=== PATIENT | female | born 1950 | race Caucasian/White ===

== ENCOUNTER 2016-12-22 18:30 | Observation (INO) ==
[2016-12-22] MEDS ORDERED: IOPAMIDOL 100 ML BOTTLE IJ ONE (18:31)
[2016-12-22] MEDS ORDERED: LABETALOL 5 MG/ML ML IV ONE (18:53)
[2016-12-22] MEDS ORDERED: LABETALOL HCL 20 MG/4 ML SYRINGE IV ONE (19:01)
--- NOTE | 2016-12-22 19:27 | Cat Scan Report ---
CLINICAL INFORMATION: There headache COMPARISON: None. TECHNIQUE: 2.5 mm helical slices were obtained in the skull base to vertex. Following reconstruction, axial reformatted images were reviewed at bone and parenchymal windows. FINDINGS: The ventricles, sulci, fissures, and cisterns are normal in size and configuration. No extra-axial fluid collections are identified. A small focus of dystrophic calcification is noted in the right frontal subcortical white matter. The remaining cerebrum, brainstem and cerebellum are unremarkable. There is no evidence of hemorrhage, mass effect, or edema. Bone windows show no osseous abnormality. IMPRESSION: No significant abnormality. No evidence of subarachnoid hemorrhage. Interpreted and Authenticated by: Spencer Roland 12/22/16
[2016-12-22 19:37] LABS: Basophils # (Auto) 0 K/mcL (0.0-0.3); Basophils % (Auto) 0.5 % (0.0-2.0); Eosinophils # (Auto) 0.1 K/mcL (0.0-0.7); Eosinophils % (Auto) 2.2 % (0.0-7.0); Granulocytes % (Auto) 61.7 % (38.0-78.0); Lymphocytes # (Auto) 1.6 K/mcL (1.5-4.8); Lymphocytes % (Auto) 27.5 % (15.5-49.0); Mean Cell Volume 91.8 fL (80.0-100.0); Mean Corpuscular HGB Conc 33.5 g/dL (31.0-36.0); Mean Corpuscular Hemoglobin 30.7 pg (26.0-34.0); Monocytes # (Auto) 0.5 K/mcL (0.1-0.9); Monocytes % (Auto) 8.1 % (1.0-9.0); Platelet Count 253 K/mcL (140-440); RBC 3.77 M/mcL (4.00-5.20); Red Cell Distribution Width 13.3 % (11.5-14.5)
[2016-12-22 19:50] LABS: ALT/SGPT 33 U/l (0-40); Albumin/Globulin Ratio 1.7 (1.0-2.3); Alkaline Phosphatase 112 U/L (39-117); Blood Urea Nitrogen 18 mg/dl (8-23); C-Reactive Protein 0.5 mg/dl (0.0-0.8)
[2016-12-22] MEDS ORDERED: IBUPROFEN 600 MG TABLET PO ONE (19:56)
[2016-12-22] MEDS ORDERED: DIAZEPAM 10 MG/2 ML SYRINGE IV ONE (21:46)
--- NOTE | 2016-12-22 22:23 | Emergency Department Note ---
Headache HPI - General Chief Complaint: Headache Stated Complaint: Migraine Time Seen by Provider: 12/22/16 18:37 Mode of arrival: wheelchair Limitations: no limitations - History of Present Illness HPI Narrative: The patient is a 66-year-old female who presents to the ER with complaint of "the worst headache of my life." She states that she really hasn't been feeling well for the past week or so got worse today. She tried to eat something and it didn't sit well so she went to lie down this afternoon and at 4 :45 PM she felt a sudden onset of right occipital pain which prompted her to come in. She reports that the pain is constant, sharp, with increased pressure. She endorse dizziness and rates the pain as 8 out of 10 on the pain scale. Endorse nausea but did not vomit. The patient does have a history of migraine headaches and stated that it was much different than those. Endorse light sensitivity. States that she has been dealing with sinus pressure and pain. No recent falls although one year ago she did fall in the bathroom on the tile on the same spot in the back of her right skull. She had no issues with pain at that time. The patient is a type II diabetic and controlled on metformin and glyburide. She states that her sugars have been higher than she likes them recently. Also has hypertension and is on lisinopril and hydrochlorothiazide. Has high cholesterol treated with Lipitor and is on Prilosec for reflux. Has never had a stroke or a TIA. Complaint: headache Onset (ago): hour(s) (2) Onset description: sudden, other (worst headache of my life") Location: Occipital Severity: severe Severity scale (1-10): 8 Quality: sharp Improves with: nothing, other Worsens with: exertion, light, noise Context: occurred at rest Associated symptoms: Reports: neck stiffness, photophobia, sensitivity to sound , other - Related Data Home Medications Medication Instructions Recorded Confirmed albuterol sulfate HFA 90 2 puff INHALATION ONCE PRN g 04/30/16 12/22/16 mcg/actuation aerosol inhaler Previous Rx's Medication Instructions Recorded glimepiride 4 mg tablet 4 mg PO QAM #90 tab 08/01/16 hydrochlorothiazide 25 mg tablet 25 mg PO QDAY #90 tab 08/01/16 lisinopril 10 mg tablet 10 mg PO QDAY #90 tab 08/01/16 atorvastatin 10 mg tablet See Label Instructions PO QDAY #30 11/20/16 tab metformin 1,000 mg tablet 1,000 mg PO BID #60 tab 11/20/16 omeprazole 20 mg capsule,delayed 20 mg PO QDAY #30 cap 11/20/16 release Allergies Allergy/AdvReac Type Severity Reaction Status Date / Time Hydromorphone Allergy Severe " I quit Verified 12/22/16 18:34 breatghing" perfume Allergy Intermediate asthma Verified 12/22/16 18:34 attack morphine Allergy Mild SOB Verified 12/22/16 18:34 amitriptyline AdvReac Intermediate aggitated Verified 12/22/16 18:34 cephalexin AdvReac Mild Upset ABD Verified 12/22/16 18:34 codeine AdvReac Mild Upset ABD Verified 12/22/16 18:34 Erythromycin Base AdvReac Mild Upset ABD Verified 12/22/16 18:34 latex AdvReac Mild Redness of Verified 12/22/16 18:34 Skin Oxycodone AdvReac Mild "Upset ABD" Verified 12/22/16 18:34 penicillin V [From Pen-Vee K] AdvReac Mild "Feels Verified 12/22/16 18:34 like I am drunk" duloxetine [From Cymbalta] AdvReac Stomach Verified 12/22/16 18:34 ache, nausea, headache, vomiting hydrocodone AdvReac Vomiting/mi Verified 12/22/16 18:34 graines artificial sweetners AdvReac Intermediate Headahe Uncoded 11/20/16 15:41 synthetic codine AdvReac Hallucinating, Uncoded 11/20/16 15:41 pain intensifies vicoden AdvReac vomiting Uncoded 11/20/16 15:41 and headaches Review of Systems All systems ED: reviewed and negative except as stated. Headache PMH - Past Medical History Attestation: Yes: The following information was validated with the patient. Medical history: Reports: asthma, diabetes, hyperlipidemia, hypertension, other (obesity, chronic sinus headaches.) - Social History Alcohol use: Reports: None Drug use: Reports: none Physical Exam - General Limitations: no limitations General appearance: alert, other (wearing large sunglasses, appear to be in pain ) - Head Head exam: atraumatic - Eye Eye exam: Present: PERRL, EOMI - ENT ENT exam: normal exam - Neck Neck exam: Present: normal inspection - Chest Chest inspection: Present: normal inspection - Respiratory Respiratory exam: Present: normal lung sounds bilaterally - Cardiovascular Cardiovascular exam: Present: regular rate, normal rhythm, systolic murmur (3/6 ) - Abdominal Exam Abdominal exam: Present: soft, normal bowel sounds - Extremities Exam Extremities exam: Present: other (significant bilateral lower extremity edema - described as "normal" by patient) - Back Exam Back exam: Present: normal inspection - Neurological Exam Neurological exam: Present: alert, oriented X3, CN II-XII intact, other (right facial numbness, right arm and leg numbness, full motor strength 5/5, finger to nose test normal) - Psychiatric Psychiatric exam: Present: normal affect, normal mood - Skin Skin exam: Present: warm, dry Course Course Narrative: Patient initially presented with symptoms of the "worst headache of my life." CT head was done and was negative for an intracranial process. She initially also presented with systolic blood pressures of 196. She was given a dose of labetalol [address] Hanna blood pressures quickly down to systolics in the low 100s. The patient felt nauseous and some shortness of breath with this. IV fluids were given which helped improve her pressures up into the 120s and she felt better. Of note then the patient started describing symptoms of right facial numbness as well as right arm and leg numbness. Motor strength was always intact but she lost sensory discrimination. This was not initially present on arrival. - Reevaluation(s) Reevaluation #1: We did try to order an MRI of her head but unfortunately due to her size she would not fit in the MRI machine at [facility] so a CT angiogram was performed here. That returned negative. Blood pressures were very labile but starting to trend down more towards systolics of 140s and 150s which is at her baseline. However her symptoms of right facial numbness persisted even as her arm and leg numbness resolved. Due to these irregular symptoms the hospitalist with consultation and she graciously agreed to admit the patient for further observation. Vital Signs Temperature 98.0 F 12/22/16 18:30 Pulse Rate 108 H 12/22/16 18:30 Respiratory Rate 16 12/22/16 18:30 Blood Pressure 196/102 12/22/16 18:30 Pulse Oximetry (%) 98 12/22/16 18:30 Temperature 98.0 F 12/22/16 18:30 Pulse Rate 74 12/22/16 22:30 Respiratory Rate 14 12/22/16 22:30 Blood Pressure 162/66 12/22/16 23:42 Pulse Oximetry (%) 95 12/22/16 23:42 Headache - MDM Narrative Medical decision making narrative: Differential includes atypical migraine, TIA, evolving stroke, hypertensive urgency causing nondescript symptoms. Her blood work was largely normal except for her elevated glucose at 280. We'll observe for signs of worsening neuro function. - Lab Data Lab results reviewed: Yes I reviewed the patient's lab results. Result diagrams: 12/22/16 19:00 12/22/16 19:00 Lab Results 12/22/16 12/22/16 12/22/16 Range/Units 19:00 19:00 23:29 WBC 5.9 (4.5-11.0) K/mcL RBC 3.77 L (4.00-5.20) M/mcL Hgb 11.6 L (12.0-15.0) g/dL Hct 34.6 L (36.0-48.0) % MCV 91.8 (80.0-100.0) fL MCH 30.7 (26.0-34.0) pg MCHC 33.5 (31.0-36.0) g/dL RDW 13.3 (11.5-14.5) % Plt Count 253 (140-440) K/mcL MPV 8.7 (7.4-10.4) fL Gran % 61.7 (38.0-78.0) % Lymph % (Auto) 27.5 (15.5-49.0) % [place] % (Auto) 8.1 (1.0-9.0) % Eos % (Auto) 2.2 (0.0-7.0) % Baso % (Auto) 0.5 (0.0-2.0) % Gran # 3.6 (1.8-8.0) K/mcL Lymph # 1.6 (1.5-4.8) K/mcL [place] # 0.5 (0.1-0.9) K/mcL Eos # 0.1 (0.0-0.7) K/mcL Baso # 0 (0.0-0.3) K/mcL Sodium 137 (133-145) mmol/L Potassium 4.2 (3.3-5.1) mmol/L Chloride 99 (96-108) mmol/L Carbon Dioxide 24 (22-30) mmol/L Anion Gap 14.0 (8-16) BUN 18 (8-23) mg/dl Creatinine 1.2 H (0.6-1.1) mg/dl GFR Calculation 47 Glucose 280 H (70-105) mg/dL Calcium 9.2 (8.6-10.4) mg/dl Total Bilirubin 0.3 (0.0-1.0) mg/dL AST 20 (0-37) U/l ALT 33 (0-40) U/l Alkaline Phosphatase 112 (39-117) U/L C-Reactive Protein 0.5 (0.0-0.8) mg/dl Total Protein 6.3 (5.9-8.4) gm/dL Albumin 4.0 (3.2-5.2) gm/dL Globulin 2.3 (2.2-3.7) gm/dL Albumin/Globulin Ratio 1.7 (1.0-2.3) Urine Color Yellow Urine Appearance Hazy Urine pH 5.0 (5.0-9.0) Ur Specific [place] 1.017 (1.000-1.035) Urine Protein Neg (NEG) mg/dL Urine Glucose (UA) 150 A (NEG) mg/dL Urine Ketones Neg (NEG) mg/dL Urine Occult Blood Neg (<0.03) mg/dL Urine Nitrate Pos A (NEG) Urine Bilirubin Neg (NEG) mg/dL Urine Urobilinogen Neg (NEG) mg/dL Ur Leukocyte Esterase Neg (NEG) /uL Urine RBC 0 (0-1) /hpf Urine WBC 4 (0-4) /hpf Ur Squamous Epith Cells 8 H (0-4) /hpf Ur Transition Epith Cell < 1 (0-2) /hpf Urine Bacteria Few A (0) /hpf Hyaline Casts 16 H (0-2) /lpf Urine Mucus Few (0) /hpf Ur Culture Indicated? No - Radiology Data Radiology results reviewed: Yes I reviewed the patient's radiology results. CT head without contrast negative CT angiogram head negative Disposition Clinical Impression: Headache, Hypertensive urgency Disposition: Xfer As Outpt/Obs ([facility]) Referrals: Melody Galeas DO [Primary Care Provider] -
[2016-12-22] MEDS ORDERED: HYDROCHLOROTHIAZIDE 25 MG TABLET PO ONE (22:32)
[2016-12-22] MEDS ORDERED: LISINOPRIL 10 MG TABLET PO ONE (22:32)
[2016-12-22] MEDS ORDERED: diphenhydrAMINE 50 MG/ML VIAL IV ONE (22:54)
[2016-12-22] MEDS ORDERED: diphenhydrAMINE 50 MG/ML VIAL ONE (22:56)
[2016-12-23 00:09] LABS: Appearance,Urine HAZY; Bacteria,Urine FEW /hpf (0); Bilirubin,Urine NEG (NEG); Color,Urine YELLOW; Glucose,Urine (UA) 150 mg/dL (NEG); Leukocyte Esterase,Urine NEG /uL (NEG); Mucus,Urine FEW /hpf (0); Nitrate,Urine POS (NEG); Protein,Urine NEG (NEG); Specific Gravity,Urine 1.017 (1.000-1.035); Urine Blood NEG mg/dL (<0.03); Urine Hyaline Cast 16 /lpf (0-2); Urine RBC 0 /hpf (0-1); Urine Squamous Epithelial Cell 8 /hpf (0-4); Urine Transitional Epi Cells < 1 /hpf (0-2); Urine WBC 4 /hpf (0-4); Urobilinogen,Urine NEG (NEG)
[2016-12-23] MEDS ORDERED: ONDANSETRON 4 MG/2 ML VIAL IV PRN (01:41)
[2016-12-23] MEDS ORDERED: MAGNESIUM HYDROXIDE 30 ML ORAL.SUSP PO PRN (01:41)
[2016-12-23] MEDS ORDERED: ACETAMINOPHEN 325 MG TABLET PO PRN (01:41)
[2016-12-23] MEDS ORDERED: ALBUTEROL SULFATE 2.5 MG/3 ML NEBULIZER NEB PRN (01:41)
[2016-12-23] MEDS ORDERED: DOCUSATE SODIUM 100 MG CAPSULE PO PRN (01:41)
[2016-12-23] MEDS ORDERED: DEXTROSE 50% 50 ML VIAL IV PRN (01:41)
--- NOTE | 2016-12-23 03:01 | Internal Med History&Physical ---
Medical - H&P: HPI Patient information: Note initiated : 12/23/16 at 1:55 am Service Date, if different from initiated Date: [] Patient: Shawanda Healy 66 y/o F admitted on 12/23/16 for Migraine. Chief Complaint: [] History of present illness: Ms. Healy is a 66 year old female the presents to the emergency roomthis evening complaining of "the worst headache of my life". The patient reports that she has been feeling ill for about a week with nausea and diarrhea and dry heavesas well as a mild frontal headache. She has been taking Ivette which seemed to helpwith the headache but not the GI symptoms. She had not been eating much, but yesterday did eat some [place] food. This evening right around 4:45 PM she developed a severe rather sharp pain in her right posterior/ occipital area. She describes this as a sharpheadache pain. It was associated with dizziness and nausea. She has been having some chills. She notes her vision felt a little blurry today. She presented to the emergency room with these symptoms and was found to have very elevated blood pressures in the 196/102 range. She was given labetalol in the emergency room, and ultimately underwent a dry head CT, followed by CT angiogram of the head and neck. These studies were essentially normal. Otherwise, she did have mild photosensitivity today. She does have a past history of migraines, but they've always included a throbbing pain in her right yazdanism area.her vision symptoms cleared once she got to the ER. She denies any ear symptoms or sore throat or cough. She denies neck stiffness swollen glands , chest pain or palpitations, shortness of breath or wheezing abdominal pain or vomiting. I believe her diarrhea has resolved and she does not have dysuria. She does have a history of heavy snoring, but says her says she has never stopped breathing at night. She has declined testing for sleep apnea. She denies daytime sleepiness. She has a long-standing history of diabetes and obesity. She has been working much harder on her diet lately, and has lost about 20 pounds. She did recently started on atorvastatin for hyperlipidemia. She does not generally take aspirin at home, other than an occasional Excedrin Migraine pill. Medical History Zenker's diverticulum, status post repairFebruary 2016 Type 2 diabetes Mild memory issues 1 year heavy snoring Lymphedema of both lower extremities (Chronic) Neuropathy (Chronic) Psoriasis (Chronic) from IBS (irritable bowel syndrome) (Chronic) 1995 Disorder of thyroid gland (Chronic) 1999 Stomach ulcer (Chronic) 1986 Joint pain (Chronic) 1989 Insomnia (Chronic) 1989 High cholesterol (Chronic) 2011 Hypertension (Chronic) 2014 Hepatitis B (Chronic) 1958 still a carrier Fibromyalgia (Chronic) 1989 Basal cell carcinoma (Chronic) 2013 under right eye Arthritis (Chronic) 1966 Anxiety (Chronic) 1986 Asthma (Chronic) Atypical chest pain (Chronic) Costalchondritis (Chronic) Surgical History Hx of excision of Zenker's diverticulum (Chronic 11/15/16) Hx of bilateral cataract extraction (Chronic) 2014 Hx of right knee surgery (Chronic) 1981 Hx of oophorectomy (Chronic) 1978 Hx of hysterectomy (Chronic) 1974 Hx of appendectomy (Chronic) 1973 History of tonsillectomy and adenoidectomy (Chronic) 1960 Hx of cholecystectomy (Chronic) Medication List omeprazole 20 mg daily acetaminophen (Tylenol) PO albuterol sulfate HFA 90 mcg/actuation (Ventolin HFA) 2 puffs Inhalation ONCE PRN gabapentin 200 mg PO PRN PRN ? glimepiride 4 mg PO QAM hydrochlorothiazide 25 mg PO QDAY lisinopril 10 mg PO QDAY metformin ER 1,000 mg (2 x 500 mg) PO BID atorvastatin 10 mgevery afternoon Excedrin Migraine, when necessary Ivette, when necessary Allergies/Adverse Reactions Hydromorphone Allergy (Severe, Verified 11/20/16 15:41) " I quit breatghing" perfume Allergy (Intermediate, Verified 11/20/16 15:41) asthma attack morphine Allergy (Mild, Verified 11/20/16 15:41) SOB amitriptyline Adverse Reaction (Intermediate, Verified 11/20/16 15:41) aggitated cephalexin Adverse Reaction (Mild, Verified 11/20/16 15:41) Upset ABD codeine Adverse Reaction (Mild, Verified 11/20/16 15:41) Upset ABD Erythromycin Base Adverse Reaction (Mild, Verified 11/20/16 15:41) Upset ABD latex Adverse Reaction (Mild, Verified 11/20/16 15:41) Redness of Skin Oxycodone Adverse Reaction (Mild, Verified 11/20/16 15:41) "Upset ABD" penicillin V [From Pen-Vee K] Adverse Reaction (Mild, Verified 11/20/16 15:41) "Feels like I am drunk" duloxetine [From Cymbalta] Adverse Reaction (Verified 11/20/16 15:41) Stomach ache, nausea, headache, vomiting hydrocodone Adverse Reaction (Verified 11/20/16 15:41) Vomiting/migraines artificial sweetners Adverse Reaction (Intermediate, Uncoded 11/20/16 15:41) Headahe synthetic codine Adverse Reaction (Uncoded 11/20/16 15:41) Hallucinating, pain intensifies vicoden Adverse Reaction (Uncoded 11/20/16 15:41) vomiting and headaches Family History Grandfather Cancer Father Cancer stomach cancer Family/Other Cancer maternal aunt-lung cancer, niece-cervical cancer Mother Cancer non-hodgkins lymphoma and brain cancer Brother Cancer Liver cancer, brother-brain cancer Diabetes mellitus, type II Grandmother Dementia Migraine Sister Migraine Daughter Migraine Social History marital status: smoking status: Former smoker alcohol intake frequency: does not drink substance use type: does not use Medical - H&P: Meds Home Medications Medication Instructions Recorded Confirmed Type albuterol sulfate HFA 90 2 puff INHALATION ONCE PRN g 04/30/16 12/22/16 History mcg/actuation aerosol inhaler glimepiride 4 mg tablet 4 mg PO QAM #90 tab 08/01/16 12/22/16 Rx hydrochlorothiazide 25 mg tablet 25 mg PO QDAY #90 tab 08/01/16 12/22/16 Rx lisinopril 10 mg tablet 10 mg PO QDAY #90 tab 08/01/16 12/22/16 Rx atorvastatin 10 mg tablet See Label Instructions PO QDAY #30 11/20/16 11/20/16 Rx tab metformin 1,000 mg tablet 1,000 mg PO BID #60 tab 11/20/16 12/22/16 Rx omeprazole 20 mg capsule,delayed 20 mg PO QDAY #30 cap 11/20/16 12/22/16 Rx release Allergies Allergy/AdvReac Type Severity Reaction Status Date / Time Hydromorphone Allergy Severe " I quit Verified 12/22/16 18:34 breatghing" perfume Allergy Intermediate asthma Verified 12/22/16 18:34 attack morphine Allergy Mild SOB Verified 12/22/16 18:34 amitriptyline AdvReac Intermediate aggitated Verified 12/22/16 18:34 cephalexin AdvReac Mild Upset ABD Verified 12/22/16 18:34 codeine AdvReac Mild Upset ABD Verified 12/22/16 18:34 Erythromycin Base AdvReac Mild Upset ABD Verified 12/22/16 18:34 latex AdvReac Mild Redness of Verified 12/22/16 18:34 Skin Oxycodone AdvReac Mild "Upset ABD" Verified 12/22/16 18:34 penicillin V [From Pen-Vee K] AdvReac Mild "Feels Verified 12/22/16 18:34 like I am drunk" duloxetine [From Cymbalta] AdvReac Stomach Verified 12/22/16 18:34 ache, nausea, headache, vomiting hydrocodone AdvReac Vomiting/mi Verified 12/22/16 18:34 graines artificial sweetners AdvReac Intermediate Headahe Uncoded 11/20/16 15:41 synthetic codine AdvReac Hallucinating, Uncoded 11/20/16 15:41 pain intensifies vicoden AdvReac vomiting Uncoded 11/20/16 15:41 and headaches Medical - H&P: Exam - Constitutional Vitals: Temp Pulse Resp BP Pulse Ox 97.7 F 78 18 159/77 97 12/23/16 01:00 12/23/16 01:00 12/23/16 01:00 12/23/16 01:00 12/23/16 01:00 Exam: on exam, she is a well-developed well-nourished, obese white female, in no acute distress. Head: Normocephalic, atraumatic. Ears: TMs and canals are clear. Eyes: PERRLA, EOMI, anicteric. Pharynx: Is clear. Teeth are in good repair. Neck: Is supple, without lymphadenopathy, JVD, thyromegaly. She does have bilateral carotid bruits, which appear to be radiation from her heart murmur. Cardiac exam: Shows regular rate and rhythm with normal S1 and S2. There is a 2 /6 systolic ejection murmur heard loudest at the right upper sternal border, and radiating into the carotids, As well as into the left apical area. Lungs: Are clear to auscultation, without rales, rhonchi, wheezes Abdomen: Is obese, but soft and nontender, with normal bowel sounds. Extremities: Show chronic lymphedema, but no pitting edema, no cyanosis, clubbing. Neurologic exam: Patient is alert and oriented 3. Cranial nerves are intact. Motor exam shows about 4+ out of 5 strength throughout. Sensory exam shows that she is intact now, to light touch throughout. Cerebellar: There is no pronator drift;[id number] exam is intact. No tremor is noted. deep tendon reflexes were somewhat difficult to obtain, but appear symmetric. Medical - H&P: Reslt - Labs CBC & Chem 7: 12/22/16 19:00 12/22/16 19:00 Labs: CT angiogram of the head and neck: Negative, per verbal report. Head CT: Essentially normal. EKG; Shows normal sinus rhythm with a rate of around 100, without acute ischemic changes Echocardiogram from July 25, 2016:Shows mild aortic stenosis, mild LVH, with LVEF of 65-70% Medical - H&P: A/P (1) TIA (transient ischemic attack) Current visit: Yes Status: Acute (2) Headache Current visit: Yes Status: Acute (3) Hypertensive urgency Current visit: Yes Status: Acute (4) Diabetes mellitus, type II Problem details: 2011 Current visit: No Status: Chronic (5) High cholesterol Problem details: 2011 Current visit: No Status: Chronic - Narrative A/P Narrative: #1. Neurologic. This patient presents with signs and symptoms concerning for possible TIA, versus migraine with neurologic symptoms. -Admit to telemetry for observation. -Continue to monitor blood pressure and use when necessary meds to keep blood pressure less than 200/180 tonight. -Since she is at high risk for vascular disease, add baby aspirin to her regimen. -continue statin drug for cholesterol control. -Continue efforts at good blood pressure and diabetes control. #2. Hypertension. continue to monitor. Continue lisinopril and HCTZ. her usual goal should be less than 130/85. #3. GI. Recent Zenker's diverticulum repair, as well as possible ulcer diagnosis. Continue PPI #4. Endocrine. -Type 2 diabetes. Continue glimipiride and metformin. Add sliding scale when necessary. -his appears to be poorly controlled long-term. Consider adding daily Lantus and mealtime insulin.continue to work on weight loss and exercise. #10. History of neuropathy-continue gabapentin when necessary. #5. Morbid obesity. Increased risk for sleep apnea. he patient declines testing for this, as she is quite sure she does not have daytime sleepiness or nighttime apnea. #6. DVT prophylaxis: Subcutaneous heparin. 37. CODE STATUS:F ull code. She says she would designate her is her POA. #8. History of fibromyalgia 39. Asthma - when necessary albuterol. this visit took approximately 60 minutes, to review her case with the ER Nelda on 2 occasions, review her old records and current test results, interview and examine her, and write orders. Medical - H&P: Qual - Stroke Onset of Symptoms Date: 12/23/16 Onset of Symptoms Time: 04:45 - VTE Deep Vein Thrombosis/Pulmonary Embolism Present on Admission: No
[2016-12-23] MEDS ORDERED: ASPIRIN 325 MG ENTERIC COATED TABLET PO ONE (03:50)
[2016-12-23] MEDS ORDERED: ASPIRIN 81 MG TAB.CHEW ONE (04:32)
[2016-12-23 06:19] LABS: ALT/SGPT 31 U/l (0-40); Albumin 3.6 gm/dL (3.2-5.2); Albumin/Globulin Ratio 1.9 (1.0-2.3); Alkaline Phosphatase 97 U/L (39-117); Blood Urea Nitrogen 18 mg/dl (8-23)
[2016-12-23 06:22] LABS: Estimated Average Glucose(eAG) 192 mg/dL; Hemoglobin A1C 8.3 % HGB (4.0-6.0)
[2016-12-23] MEDS ORDERED: GLIMEPIRIDE 2 MG TABLET PO SCH (07:30)
[2016-12-23] MEDS ORDERED: PANTOPRAZOLE 40 MG TABLET PO SCH (07:30)
[2016-12-23] MEDS: INSULIN LISPRO 1 UNIT/0.01 ML UNIT SQ SCH ×2 (08:46→11:56)
[2016-12-23] MEDS ORDERED: HYDROCHLOROTHIAZIDE 25 MG TABLET PO SCH (09:00)
[2016-12-23] MEDS ORDERED: ENOXAPARIN 40 MG/0.4 ML SYRINGE SQ SCH (09:00)
[2016-12-23] MEDS ORDERED: ASPIRIN 325 MG ENTERIC COATED TABLET PO SCH (09:00)
[2016-12-23] MEDS ORDERED: LISINOPRIL 10 MG TABLET PO SCH (09:00)
[2016-12-23] MEDS ORDERED: METFORMIN HCL 1000 MG PO SCH (09:00)
--- NOTE | 2016-12-23 10:22 | Cat Scan Report ---
CLINICAL INFORMATION: Facial numbness possible stroke: COMPARISON: None. TECHNIQUE: 80 cc of Isovue-300 were injected intravenously , and using SmartPrep to maximize cerebral arterial opacification, 0.625 mm helical slices were obtained from the skull base through the cerebral vertex. Following reconstruction , sagittal, coronal and axial reformatted images were processed and reviewed at multiple windows and levels. 3D volume rendered and MIP images were also obtained at an independent workstation. FINDINGS: The intracranial vertebral, basilar, intracranial internal carotid, anterior and middle cerebral arteries and branches are well opacified and normal in contour/caliber without evidence of occlusion, stenosis or other focal pathology. The superficial and deep cerebral veins and venous sinuses are widely patent. IMPRESSION: Normal Interpreted and Authenticated by: Spencer Roland 12/23/16
--- NOTE | 2016-12-23 12:48 | Discharge Summary ---
Medical - DS: Prov Patient information: Note initiated : 12/23/16 at 12:45 pm Service Date, if different from initiated Date: [] Patient: Shawanda Healy 66 y/o F admitted on 12/23/16 for Migraine. Chief Complaint: [] Date of admission: 12/23/16 00:55 Discharge date: 12/23/16 Primary care physician: [Dr. Melody Galeas, phone #[phone]] Admitting clinician: Kari Moody Attending physician on discharge: Kari Moody Medical - DS: Meds - Discharge Medications Prescriptions: Aspirin [Ecotrin] 81 mg PO DAILY #1 tab.ec Active and Home Medications: Home Medications albuterol sulfate HFA 90 mcg/actuation aerosol inhaler 2 puff INHALATION ONCE PRN g 04/30/16 [History Confirmed 12/22/16 Last Taken Unknown] glimepiride 4 mg tablet 4 mg PO QAM #90 tab 08/01/16 [Rx Confirmed 12/22/16 Last Taken 08/29/16 08:00] hydrochlorothiazide 25 mg tablet 25 mg PO QDAY #90 tab 08/01/16 [Rx Confirmed Last Taken 08/29/16 08:00] lisinopril 10 mg tablet 10 mg PO QDAY #90 tab 08/01/16 [Rx Confirmed 12/22/16 Last Taken 08/29/16] metformin 1,000 mg tablet 1,000 mg PO BID #60 tab 11/20/16 [Rx Confirmed Last Taken Unknown] omeprazole 20 mg capsule,delayed release 20 mg PO QDAY #30 cap 11/20/16 [Rx Confirmed 12/22/16 Last Taken Unknown] Atorvastatin [Lipitor] 1 tab PO QDAY 12/23/16 [History Confirmed 12/23/16 Last Taken Unknown] Medical - DS: Hosp Hospital course: Mr. Healy is a 66 year old male 12/23/16:History of present illness: Ms. Healy is a 66 year old female the presents to the emergency room this evening complaining of "the worst headache of my life". The patient reports that she has been feeling ill for about a week with nausea and diarrhea and dry heave sas well as a mild frontal headache. She has been taking Ivette which seemed to help with the headache but not the GI symptoms. She had not been eating much, but yesterday did eat some Swedish food. This evening right around 4:45 PM she developed a severe rather sharp pain in her right posterior/ occipital area. She describes this as a sharp headache pain. It was associated with dizziness and nausea. She has been having some chills. She notes her vision felt a little blurry today. She presented to the emergency room with these symptoms and was found to have very elevated blood pressures in the 196/102 range. She was given labetalol in the emergency room, and ultimately underwent a dry head CT, followed by CT angiogram of the head and neck. These studies were essentially normal. Otherwise, she did have mild photosensitivity today. She does have a past history of migraines, but they've always included a throbbing pain in her right adventist area.her vision symptoms cleared once she got to the ER. She denies any ear symptoms or sore throat or cough. She denies neck stiffness swollen glands , chest pain or palpitations, shortness of breath or wheezing abdominal pain or vomiting. I believe her diarrhea has resolved and she does not have dysuria. She does have a history of heavy snoring, but says her says she has never stopped breathing at night. She has declined testing for sleep apnea. She denies daytime sleepiness. She has a long-standing history of diabetes and obesity. She has been working much harder on her diet lately, and has lost about 20 pounds. She did recently started on atorvastatin for hyperlipidemia. She does not generally take aspirin at home, other than an occasional Excedrin Migraine pill. hospital course: for full details on admitting data, please refer to the dictated H&P from earlier this morning. the patient was admitted just after midnight, for symptoms worrisome for possible TIA versus atypical migraine. She also had hypertensive urgency. She did receive IV labetalol in the ER for her blood pressure. She was admitted to telemetry and monitored overnight. Both her headache and her elevated blood pressure resolved. The facial numbness she had on arrival has also resolved. She is now feeling back to normal. She denies fever or chills, current headache, current eye or ear symptoms. She denies any chest pain or palpitations, shortness of breath abdominal pain, nausea or vomiting, diarrhea or constipation or dysuria. Medical History Zenker's diverticulum, status post repairFebruary 2016 Type 2 diabetes Mild memory issues 1 year heavy snoring Lymphedema of both lower extremities (Chronic) Neuropathy (Chronic) Psoriasis (Chronic) from IBS (irritable bowel syndrome) (Chronic) 1995 Disorder of thyroid gland (Chronic) 1999 Stomach ulcer (Chronic) 1986 Joint pain (Chronic) 1989 Insomnia (Chronic) 1989 High cholesterol (Chronic) 2011 Hypertension (Chronic) 2014 Hepatitis B (Chronic) 1958 still a carrier Fibromyalgia (Chronic) 1989 Basal cell carcinoma (Chronic) 2013 under right eye Arthritis (Chronic) 1966 Anxiety (Chronic) 1986 Asthma (Chronic) Atypical chest pain (Chronic) Costalchondritis (Chronic) on physical exam: exam is essentially unchanged from very early this morning: The patient is awake , calm and alert, and in no acute distress. Eyes: PERRLA, EOMI, anicteric. Neck: Is supple, without JVD. She does have bilateral carotid bruits, which appear to be radiation from her heart murmur. Cardiac exam: Shows regular rate and rhythm with normal S1 and S2. There is a 2 /6 systolic ejection murmur heard loudest at the right upper sternal border, and radiating into the carotids, As well as into the left apical area. Lungs: Are clear to auscultation, without rales, rhonchi, wheezes Abdomen: Is obese, but soft and nontender, with normal bowel sounds. Extremities: Show chronic lymphedema, but no pitting edema, no cyanosis, clubbing. Neurologic exam: Patient is alert and oriented 3. Cranial nerves are intact. Motor exam shows about 4+ out of 5 strength throughout. Sensory exam shows that she is intact to light touch throughout. Cerebellar: There is no pronator drift;[id number] exam is intact. No tremor is noted. assessment and plan: #1. Neurologic. This patient presents with signs and symptoms concerning for possible TIA, versus migraine with neurologic symptoms. ll of her symptoms have resolved. She has been started on a baby aspirin each day as this should lower her risk for heart attack and stroke, which is elevated due to her long-standing hypertension, diabetes, obesity. She is also at increased risk for sleep apnea , and is encouraged to discuss this further with her doctor. -she had no signs of arrhythmias on telemetry overnight. -continue statin drug for cholesterol control. -Continue efforts at good blood pressure and diabetes control. - her CT angiogram of her brain was normal, but it appears she did not actually have a CT angiogram of her neck. Her primary care physician may want to pursue this, or perhaps get a carotid Doppler study, as she does have bilateral carotid bruits. #2. Hypertension. continue to monitor. Continue lisinopril and HCTZ. her usual goal should be less than 130/85. #3. GI. Recent Zenker's diverticulum repair, as well as possible ulcer diagnosis. Continue PPI #4. Endocrine. -Type 2 diabetes. Continue glimipiride and metformin. -his appears to be poorly controlled long-term. Consider adding daily Lantus and mealtime insulin.continue to work on weight loss and exercise. #5. History of neuropathy-continue gabapentin when necessary. #6. Morbid obesity. Increased risk for sleep apnea. he patient declines testing for this, as she is quite sure she does not have daytime sleepiness or nighttime apnea. #7. DVT prophylaxis: Subcutaneous heparin. 8. CODE STATUS:Full code. She says she would designate her is her POA. #9. History of fibromyalgia 10. Asthma - when necessary albuterol. she will be discharged to home today. She is encouraged to follow up with her primary care physician this week, to recheck her blood pressure and blood sugar. She is also advised to seek medical care if she has any recurrent symptoms of possible stroke. Approximately 90 minutes was spent with this patient since midnight last night, reviewing records, interviewing and examining her several times, and writing orders. Discharge diagnosis: TIA symptoms, hypertensive urgency, diabetes, hypertension - Time Spent with Patient Total time spent providing and/or coordinating discharge services: Medical - DS: Exam - Constitutional Vitals: Vital Signs Temp Pulse Resp BP BP Pulse Ox 12/23/16 11:57 97.9 F 87 18 132/69 94 12/23/16 07:48 97.7 F 81 18 126/66 95 12/23/16 05:17 97.7 F 82 18 140/64 95 12/23/16 01:00 97.7 F 78 18 159/77 125/75 97 Intake and Output 12/22/16 12/23/16 12/23/16 20:59 05:59 13:59 Intake Total 440 / 440 Output Total Balance 440 / 440 Intake: Oral 440 / 440 Output: Void Amount Other: Meal Breakfast Percent of Meal Consumed 100% Weight Medical - DS: Data Labs on day of discharge: Labs from last 24 hours 12/23/16 12/23/16 04:20 04:20 Sodium 140 Potassium 4.1 Chloride 101 Carbon Dioxide 23 Anion Gap 16.0 BUN 18 Creatinine 1.3 H GFR Calculation 43 Glucose 283 H Hemoglobin A1c 8.3 H Estim Average Glucose 192 Calcium 8.6 Total Bilirubin 0.3 AST 20 ALT 31 Alkaline Phosphatase 97 Total Protein 5.5 L Albumin 3.6 Globulin 1.9 L Albumin/Globulin Ratio 1.9 CT angiogram of the head and neck: reported as normal. Head CT: Essentially normal. EKG; Shows normal sinus rhythm with a rate of around 100, without acute ischemic changes Echocardiogram from July 25, 2016:Shows mild aortic stenosis, mild LVH, with LVEF of 65-70% Medical - DS: A/P - Patient/Caregiver Discharge Instructions Activity: increase activity as tolerated Diet: Consistent Carbohydrate Additional Instructions: #1. you presented to the hospital with symptoms of possible TIA/stroke, versus atypical migraine. You are at higher risk for stroke, due to your history of diabetes and hypertension. -Please start on taking a baby aspirin, 81 mg, every day, from now on. -Please follow-up with your primary care physician this week, to recheck your blood pressure, and review medications. please monitor blood pressures at home once or twice a day until you see your doctor again. -Please return to the emergency room right away if you experience more symptoms of stroke, such as weakness numbness or tingling. #2. You are also at increased risk for sleep apnea, and may want to consider treatment for this, as sleep apnea can increase her risk for stroke and heart attack. #3. Diabetes. Please continue to work on better control of your diabetes, most importantly through controlling your diet and increasing her exercise activity. -continue all of her other home medications as before. Prescriptions: Aspirin [Ecotrin] 81 mg PO DAILY #1 tab.ec - Problem Maintenance (1) TIA (transient ischemic attack) Status: Acute Qualifiers: Transient cerebral ischemia type: other Qualified Code(s): G45.8 - Other transient cerebral ischemic attacks and related syndromes (2) Headache Status: Resolved Qualifiers: Headache chronicity pattern: acute headache Intractability: not intractable (3) Hypertensive urgency Status: Resolved (4) Diabetes mellitus, type II Status: Chronic Comment: 2011 Qualifiers: Diabetes mellitus complication status: with neurologic complications Diabetes mellitus complication detail: with polyneuropathy Diabetes mellitus detention insulin use: without termite control technician use Qualified Code(s): E11.42 - Type 2 diabetes mellitus with diabetic polyneuropathy (5) High cholesterol Status: Chronic Comment: 2011 - Follow up Plan Follow up with: Melody Galeas DO [Primary Care Provider] - Disposition: Home, Self-Care Prognosis: Good Rehab Potential: Good I certify that the patient requires SNF services: No Overall status at discharge: patient is progressing back to baseline Medical - DS: Qual - VTE Deep Vein Thrombosis/Pulmonary Embolism Present on Admission: No
[2016-12-23] MEDS ORDERED: metFORMIN 500 MG TABLET PO SCH (17:30)
== END 2016-12-23 13:30 | disposition home or self-care (01) ==
LOC: ED 18:30 → ICU 18:30
PROVIDERS: ADMIT Internal Medicine; ATTEND Internal Medicine

== ENCOUNTER 2017-03-17 20:30 | Observation (INO) ==
--- NOTE | 2017-03-17 20:37 | Emergency Department Note ---
Neuro HPI - General Chief Complaint: Stroke Symptoms Stated Complaint: facial numbness Time Seen by Provider: 03/17/17 20:34 Mode of arrival: wheelchair - History of Present Illness HPI Narrative: This patient began having numbness to the right side of her face right arm and right leg a half hour ago. She also wondered if her speech has been affected. She had a TIA back in December and was admitted had a negative CT CTA but I do not see an echocardiogram performed. She does take aspirin daily. Exam tonight is showing slight weakness to the right leg but the right arm and hand appear to be normal in strength. Onset (ago): minute(s) Timing confirmed by: spouse Location: speech, right face, right arm, right leg History of same: Yes Severity: mild, moderate Quality: numb Improves with: none Worsens with: none - Related Data Home Medications: Home Medications Medication Instructions Recorded Confirmed Aspirin/Acetaminophen/Caffeine 1 each PO PRN PRN 02/06/17 03/05/17 [Excedrin Migraine Caplet] Famotidine [Acid Authorizer] 40 mg PO DAILY 02/06/17 03/05/17 Previous Rx's Medication Instructions Recorded hydrochlorothiazide 25 mg tablet 25 mg PO QDAY #90 tab 08/01/16 Accu-Chek 1 each FS ACHS strip 12/23/16 Acetaminophen [Tylenol] 650 mg PO Q6HP PRN #0 tab 12/23/16 Aspirin [Ecotrin] 81 mg PO DAILY #1 tab.ec 12/23/16 Docusate Sodium [Colace] 100 mg PO BID PRN #0 cap 12/23/16 ranitidine 150 mg tablet 150 mg PO QHS #30 tab 01/23/17 insulin glargine 100 unit/mL (3 20 unit SUB-Q QHS #3 ml 02/08/17 mL) subcutaneous pen alcohol swabs See Dose Instructions .ROUTE 02/14/17 .MEDSUPPLY #120 pad fluconazole 100 mg tablet 100 mg PO Q24H #2 tab 02/14/17 potassium chloride ER 20 mEq 20 meq PO QDAY #30 tab 02/28/17 tablet,extended release albuterol sulfate HFA 90 2 puff INHALATION ONCE PRN #8.5 g 03/05/17 mcg/actuation aerosol inhaler Allergies/Adverse Reactions: Allergies Allergy/AdvReac Type Severity Reaction Status Date / Time Hydromorphone Allergy Severe " I quit Verified 03/17/17 20:36 breatghing" perfume Allergy Intermediate asthma Verified 03/17/17 20:36 attack morphine Allergy Mild SOB Verified 03/17/17 20:36 doxycycline Allergy Hives Verified 03/17/17 20:36 amitriptyline AdvReac Intermediate aggitated Verified 03/17/17 20:36 duloxetine [From Cymbalta] AdvReac Intermediate Stomach Verified 03/17/17 20:36 ache, nausea, headache, vomiting hydrocodone AdvReac Intermediate Vomiting/mi Verified 03/17/17 20:36 graines penicillin V [From Pen-Vee K] AdvReac Intermediate "Feels Verified 03/17/17 20: 36 like I am drunk" cephalexin AdvReac Mild Upset ABD Verified 03/17/17 20:36 codeine AdvReac Mild Upset ABD Verified 03/17/17 20:36 Erythromycin Base AdvReac Mild Upset ABD Verified 03/17/17 20:36 latex AdvReac Mild Redness of Verified 03/17/17 20:36 Skin Oxycodone AdvReac Mild "Upset ABD" Verified 03/17/17 20:36 artificial sweetners AdvReac Intermediate Headahe Uncoded 03/05/17 13:44 synthetic codine AdvReac Intermediate Hallucinating, Uncoded 03/05/17 13:44 pain intensifies Review of Systems Constitutional: Denies: fever Eyes: Denies: eye pain ENT ED: Denies: ear pain Cardiovascular: Denies: chest pain Respiratory: Denies: cough Gastrointestinal: Denies: abdominal pain Genitourinary: Denies: urgency Musculoskeletal: Denies: back pain Integumentary: Denies: rash Past Medical History - Past Medical History [facility] Narrative: Medical History (Last Updated 03/09/17 @ 11:43 by Melody Galeas DO) Hypertensive urgency (Resolved) TIA (transient ischemic attack) (Resolved) GERD (gastroesophageal reflux disease) (Chronic) Lymphedema of both lower extremities (Chronic) Neuropathy (Chronic) Psoriasis (Chronic) IBS (irritable bowel syndrome) (Chronic) Disorder of thyroid gland (Chronic) Insomnia (Chronic) High cholesterol (Chronic) Hypertension (Chronic) Diabetes mellitus, type II (Chronic) Fibromyalgia (Chronic) Basal cell carcinoma (Chronic) Arthritis (Chronic) Anxiety (Chronic) Asthma (Chronic) Atypical chest pain (Resolved) Costalchondritis (Resolved) Diabetes follow-up (Resolved) Headache (Resolved) Hepatitis B (Resolved) Hypokalemia (Resolved) Joint pain (Resolved) Stomach ulcer (Resolved) Past Surgical History (Last Reviewed 03/09/17 @ 11:37 by Melody Galeas DO) History of tonsillectomy and adenoidectomy (Chronic) Hx of appendectomy (Chronic) Hx of bilateral cataract extraction (Chronic) Hx of cholecystectomy (Chronic) Hx of excision of Zenker's diverticulum (Chronic 11/15/16) Hx of hysterectomy (Chronic) Hx of oophorectomy (Chronic) Hx of right knee surgery (Chronic) Family History (Last Reviewed 03/09/17 @ 11:37 by Melody Galeas DO) Grandfather Cancer Father Cancer Family/Other Cancer Mother Cancer Brother Cancer Diabetes mellitus, type II Grandmother Dementia Migraine Sister Migraine Daughter Migraine Medical history: Reports: arthritis, asthma, diabetes, fibromyalgia, GERD, hyperlipidemia, hypertension, liver disease (hepatitis B), migraine, thyroid disease, TIA, other (obesity, chronic sinus headaches.) Surgical history ED: Reports: appendectomy, cataract, cholecystectomy, orthopedic, other, KARLEE/BSO, tonsillectomy Psychiatric history: Reports: anxiety - Social History Alcohol use: Reports: None Drug use: Reports: none Physical Exam - General Limitations: no limitations General appearance: alert, in no apparent distress - Head Head exam: atraumatic, normocephalic - Eye Eye exam: Present: normal appearance - ENT ENT exam: normal exam - Neck Neck exam: Present: normal inspection - Chest Chest inspection: Present: normal inspection - Respiratory Respiratory exam: Present: normal lung sounds bilaterally - Cardiovascular Cardiovascular exam: Present: regular rate, normal rhythm, normal heart sounds - Abdominal Exam Abdominal exam: Present: soft. Absent: distention, tenderness - Neurological Exam Neurological exam: Present: alert, oriented X3 - Expanded Neurological Exam Cranial nerves: facial sensation (V): Abnormal Right, facial palsy (VII): Abnormal Right Motor strength - LUE: 5/5 Motor strength - RUE: 5/5 Motor strength - LLE: 5/5 Motor strength - RLE: 4/5 Sensory exam upper extremity: Abnormal Right: light touch Sensory exam lower extremity: Abnormal Right: light touch - Psychiatric Psychiatric exam: Present: normal affect, normal mood - Skin Skin exam: Present: warm, dry, intact Course Vital Signs Temperature 97.7 F 03/17/17 20:31 Pulse Rate 108 H 03/17/17 20:31 Respiratory Rate 20 03/17/17 20:31 Blood Pressure 175/90 03/17/17 20:31 Pulse Oximetry (%) 99 03/17/17 20:31 Temperature 97.7 F 03/17/17 20:31 Pulse Rate 93 H 03/17/17 21:15 Respiratory Rate 15 03/17/17 21:15 Blood Pressure 159/75 03/17/17 21:15 Pulse Oximetry (%) 95 03/17/17 21:15 Neuro Symptoms/Deficit - MDM Narrative Medical decision making narrative: This patient was evaluated by the stroke neurologist and he declined to give her TPA because her symptoms were mild and she had a blood sugar of 454. If her blood sugar had been in acceptable range she would have given her TPA. She will now be admitted here to our hospital. - Lab Data Lab results reviewed: Yes I reviewed the patient's lab results. Result diagrams: 03/17/17 20:55 03/17/17 20:54 Lab Results 03/17/17 03/17/17 03/17/17 Range/Units 20:54 20:54 20:55 WBC 7.4 (4.5-11.0) K/mcL RBC 4.11 (4.00-5.20) M/mcL Hgb 13.0 (12.0-15.0) g/dL Hct 37.5 (36.0-48.0) % POC Hct 40.0 (36.0-48.0) % MCV 91.3 (80.0-100.0) fL MCH 31.6 (26.0-34.0) pg MCHC 34.6 (31.0-36.0) g/dL RDW 12.9 (11.5-14.5) % Plt Count 301 (140-440) K/mcL MPV 8.7 (7.4-10.4) fL Gran % 63.3 (38.0-78.0) % Lymph % (Auto) 27.9 (15.5-49.0) % [place] % (Auto) 7.2 (1.0-12.0) % Eos % (Auto) 1.2 (0.0-7.0) % Baso % (Auto) 0.4 (0.0-2.0) % Gran # 4.7 (1.8-8.0) K/mcL Lymph # 2.1 (1.5-4.8) K/mcL [place] # 0.5 (0.1-0.9) K/mcL Eos # 0.1 (0.0-0.7) K/mcL Baso # 0 (0.0-0.3) K/mcL POC PT (11.9-14.5) sec POC INR (0.9-1.2) APTT (20-37) sec POC Sodium 138 (133-145) mmol/L Sodium 136 (133-145) mmol/L POC Potassium 4.1 (3.3-5.1) mmol/L Potassium 4.0 (3.3-5.1) mmol/L POC Chloride 101 (96-108) mmol/L Chloride 95 L (96-108) mmol/L Carbon Dioxide 21 L (22-30) mmol/L POC Total CO2 24 (22-30) mmol/L Anion Gap 20.0 H (8-16) POC BUN 31 H (8-23) mg/dl BUN 32 H (8-23) mg/dl Creatinine 1.4 H (0.6-1.1) mg/dl POC Creatinine 1.2 H (0.6-1.1) mg/dl GFR Calculation 39 Glucose 454 H* (70-105) mg/dL POC Glucose 467 H* (70-105) mg/dL Calcium 9.8 (8.6-10.4) mg/dl POC WB Ioniz Calcium 1.19 (1.16-1.32) mmol/L Total Bilirubin 0.2 (0.0-1.0) mg/dL AST 15 (0-37) U/l ALT 27 (0-40) U/l Alkaline Phosphatase 142 H (39-117) U/L Troponin T < 0.01 (0-0.03) ng/ml Total Protein 6.9 (5.9-8.4) gm/dL Albumin 4.0 (3.2-5.2) gm/dL Globulin 2.9 (2.2-3.7) gm/dL Albumin/Globulin Ratio 1.4 (1.0-2.3) 03/17/17 Range/Units 20:55 WBC (4.5-11.0) K/mcL RBC (4.00-5.20) M/mcL Hgb (12.0-15.0) g/dL Hct (36.0-48.0) % POC Hct (36.0-48.0) % MCV (80.0-100.0) fL MCH (26.0-34.0) pg MCHC (31.0-36.0) g/dL RDW (11.5-14.5) % Plt Count (140-440) K/mcL MPV (7.4-10.4) fL Gran % (38.0-78.0) % Lymph % (Auto) (15.5-49.0) % R[place]con % (Auto) (1.0-12.0) % Eos % (Auto) (0.0-7.0) % Baso % (Auto) (0.0-2.0) % Gran # (1.8-8.0) K/mcL Lymph # (1.5-4.8) K/mcL R[place] # (0.1-0.9) K/mcL Eos # (0.0-0.7) K/mcL Baso # (0.0-0.3) K/mcL POC PT 11.5 L (11.9-14.5) sec POC INR 1.0 (0.9-1.2) APTT 31 (20-37) sec POC Sodium (133-145) mmol/L Sodium (133-145) mmol/L POC Potassium (3.3-5.1) mmol/L Potassium (3.3-5.1) mmol/L POC Chloride (96-108) mmol/L Chloride (96-108) mmol/L Carbon Dioxide (22-30) mmol/L POC Total CO2 (22-30) mmol/L Anion Gap (8-16) POC BUN (8-23) mg/dl BUN (8-23) mg/dl Creatinine (0.6-1.1) mg/dl POC Creatinine (0.6-1.1) mg/dl GFR Calculation Glucose (70-105) mg/dL POC Glucose (70-105) mg/dL Calcium (8.6-10.4) mg/dl POC WB Ioniz Calcium (1.16-1.32) mmol/L Total Bilirubin (0.0-1.0) mg/dL AST (0-37) U/l ALT (0-40) U/l Alkaline Phosphatase (39-117) U/L Troponin T (0-0.03) ng/ml Total Protein (5.9-8.4) gm/dL Albumin (3.2-5.2) gm/dL Globulin (2.2-3.7) gm/dL Albumin/Globulin Ratio (1.0-2.3) - Radiology Data Radiology results reviewed: Yes I reviewed the patient's radiology results. Disposition Clinical Impression: CVA (cerebral vascular accident) Disposition: Xfer As Inpt ([facility]) Condition: Fair Referrals: Melody Galeas DO [Primary Care Provider] - Time of Disposition: 22:18
[2017-03-17] MEDS ORDERED: INSULIN LISPRO 1 UNIT/0.01 ML UNIT SQ STA (21:20)
[2017-03-17 21:33] LABS: Basophils # (Auto) 0 K/mcL (0.0-0.3); Basophils % (Auto) 0.4 % (0.0-2.0); Eosinophils # (Auto) 0.1 K/mcL (0.0-0.7); Eosinophils % (Auto) 1.2 % (0.0-7.0); Granulocytes % (Auto) 63.3 % (38.0-78.0); Lymphocytes # (Auto) 2.1 K/mcL (1.5-4.8); Lymphocytes % (Auto) 27.9 % (15.5-49.0); Mean Cell Volume 91.3 fL (80.0-100.0); Mean Corpuscular HGB Conc 34.6 g/dL (31.0-36.0); Mean Corpuscular Hemoglobin 31.6 pg (26.0-34.0); Monocytes # (Auto) 0.5 K/mcL (0.1-0.9); Monocytes % (Auto) 7.2 % (1.0-12.0); Platelet Count 301 K/mcL (140-440); RBC 4.11 M/mcL (4.00-5.20); Red Cell Distribution Width 12.9 % (11.5-14.5)
[2017-03-17] MEDS ORDERED: ALTEPLASE IV ONE (21:44)
[2017-03-17] MEDS ORDERED: INSULIN REGULAR, HUMAN 1 UNIT/0.01 ML UNIT IV ONE (21:51)
[2017-03-17] MEDS ORDERED: INSULIN REGULAR, HUMAN 1 UNIT/0.01 ML UNIT ONE (21:52)
[2017-03-17 22:03] LABS: ALT/SGPT 27 U/l (0-40); Albumin/Globulin Ratio 1.4 (1.0-2.3); Alkaline Phosphatase 142 U/L (39-117); Blood Urea Nitrogen 32 mg/dl (8-23)
[2017-03-17 22:53] LABS: Appearance,Urine CLEAR; Bacteria,Urine FEW /hpf (0); Bilirubin,Urine NEG (NEG); Color,Urine YELLOW; Glucose,Urine (UA) >=500 mg/dL (NEG); Leukocyte Esterase,Urine NEG /uL (NEG); Mucus,Urine FEW /hpf (0); Nitrate,Urine NEG (NEG); Protein,Urine NEG (NEG); Specific Gravity,Urine 1.028 (1.000-1.035); Urine Blood NEG mg/dL (<0.03); Urine Hyaline Cast 20 /lpf (0-2); Urine RBC < 1 /hpf (0-1); Urine Squamous Epithelial Cell 2 /hpf (0-4); Urine WBC 2 /hpf (0-4); Urobilinogen,Urine NEG (NEG)
[2017-03-17] MEDS ORDERED: IPRATROPIUM/ALBUTEROL 3 ML AMPUL.NEB NEB PRN (23:57)
[2017-03-17] MEDS ORDERED: DEXTROSE 50% 50 ML VIAL IV PRN (23:57)
[2017-03-17] MEDS ORDERED: ACETAMINOPHEN 325 MG TABLET PO PRN (23:57)
[2017-03-17] MEDS ORDERED: MAGNESIUM HYDROXIDE 30 ML ORAL.SUSP PO PRN (23:57)
[2017-03-17] MEDS ORDERED: ONDANSETRON 4 MG/2 ML VIAL IV PRN (23:57)
[2017-03-17] MEDS ORDERED: SENNOSIDES 1 TABLET PO PRN (23:57)
[2017-03-17] MEDS ORDERED: NALOXONE HCL 0.4 MG/ML VIAL IV PRN (23:57)
[2017-03-17] MEDS ORDERED: PRAVASTATIN 40 MG TABLET PO SCH (23:57)
[2017-03-18] MEDS ORDERED: IPRATROPIUM/ALBUTEROL 3 ML AMPUL.NEB NEB PRN (00:22)
[2017-03-18] MEDS ORDERED: NALOXONE HCL 0.4 MG/ML VIAL IV PRN (00:22)
[2017-03-18] MEDS ORDERED: ACETAMINOPHEN 325 MG TABLET PO PRN ×2 (00:22→00:57)
[2017-03-18] MEDS ORDERED: DEXTROSE 50% 50 ML VIAL IV PRN (00:22)
[2017-03-18] MEDS ORDERED: ONDANSETRON 4 MG/2 ML VIAL IV PRN (00:22)
[2017-03-18] MEDS ORDERED: MAGNESIUM HYDROXIDE 30 ML ORAL.SUSP PO PRN (00:22)
[2017-03-18] MEDS ORDERED: SENNOSIDES 1 TABLET PO PRN (00:22)
--- NOTE | 2017-03-18 01:09 | Internal Med History&Physical ---
Medical - H&P: HPI Patient information: Note initiated : 03/18/17 at 1:01 am Service Date, if different from initiated Date: [] Patient: Shawanda Healy 66 y/o F admitted on 03/17/17 for facial numbness. Chief Complaint: [] History of present illness: Ms. Healy is a 66 year old female who has h/o DM, uncontrolled, h/o TIA in the past, presented to the ER with right side weakness, numbness and right leg weakness which started 30-45 mins before she presented. The patient was in the mormonism, where at the end of the service she started to notice that the right side of the face was numb, when she got up after the service, she noted that the right leg was very weak, she was slurring in terms of her speech and she felt that the face was being pulled to the right side. The patient was brought to the ER, where her NIHS score was 9, tele stroke contacted, TPA not given as her score was low and her glucose was elevated at 450. The patient was admitted to the hospital for further management. The patient was admitted to the hospital for Headache and TIA like symptoms in december, wherein the CT head was neg, she had a echo done last year which showed mild but normal lvef. The patient did not have a Carotid duplex done. she is on ASA and her DM is uncontrolled with A1c of 11 done last month. The patient is not on a statin as she has severe cramps when she tries same. The patient also reports pain in the right leg 1 week ago, where she notes her leg was cold, to touch, the pain would worsen with activity and improve with rest, ache like pain. The patient NIH score was 2 during my interview, her motor weakness was nearly completely resolved, she only had sensory abnormalities. Pt reports h/o Hep B and notes she is a carrier. Review of systems: CONSTITUTIONAL: No weight loss, fever, chills, weakness or fatigue. HEENT: Eyes: No visual loss, blurred vision, double vision or yellow sclerae. Ears, Nose, Throat: No hearing loss, sneezing, congestion, runny nose or sore throat. SKIN: No rash or itching. CARDIOVASCULAR: No chest pain, chest pressure or chest discomfort. No palpitations or edema. RESPIRATORY: No shortness of breath, cough or sputum. GASTROINTESTINAL: No nausea, vomiting or diarrhea or constipation. No abdominal pain or blood in stools No Blanca. GENITOURINARY: Denies Burning on urination. Blood in urine, or foul smelling urine NEUROLOGICAL: No headache, dizziness, syncope, paralysis, tremors, numbness on right side of face, arm and leg, weakness in right leg. MUSCULOSKELETAL: No muscle, back pain, joint pain or stiffness. HEMATOLOGIC: No bleeding or bruising. No enlarged nodes PSYCHIATRIC: No depression or anxiety. ENDOCRINOLOGIC: No reports of sweating, cold or heat intolerance. No polyuria or polydipsia. ALLERGIES: No hives, eczema or rhinitis. Skin: No rash, no jaundice, cyanosis or pallor. Medical - H&P: [facility] Medical history: Medical History (Last Updated 03/17/17 @ 22:18 by Emmanuel Timmons MD) Hypertensive urgency (Resolved) TIA (transient ischemic attack) (Resolved) GERD (gastroesophageal reflux disease) (Chronic) Lymphedema of both lower extremities (Chronic) Neuropathy (Chronic) Psoriasis (Chronic) IBS (irritable bowel syndrome) (Chronic) Disorder of thyroid gland (Chronic) Insomnia (Chronic) High cholesterol (Chronic) Hypertension (Chronic) Diabetes mellitus, type II (Chronic) Fibromyalgia (Chronic) Basal cell carcinoma (Chronic) Arthritis (Chronic) Anxiety (Chronic) Asthma (Chronic) Atypical chest pain (Resolved) Costalchondritis (Resolved) Diabetes follow-up (Resolved) Headache (Resolved) Hepatitis B (Resolved) Hypokalemia (Resolved) Joint pain (Resolved) Stomach ulcer (Resolved) Surgical history: Past Surgical History (Last Reviewed 03/09/17 @ 11:37 by Melody Galeas DO) History of tonsillectomy and adenoidectomy (Chronic) Hx of appendectomy (Chronic) Hx of bilateral cataract extraction (Chronic) Hx of cholecystectomy (Chronic) Hx of excision of Zenker's diverticulum (Chronic 11/15/16) Hx of hysterectomy (Chronic) Hx of oophorectomy (Chronic) Hx of right knee surgery (Chronic) Family history: reviewed and not pertinent Medical - H&P: Meds Home Medications Medication Instructions Recorded Confirmed Type hydrochlorothiazide 25 mg tablet 25 mg PO QDAY #90 tab 08/01/16 03/17/17 Rx Accu-Chek 1 each FS ACHS strip 12/23/16 03/17/17 Rx Acetaminophen [Tylenol] 650 mg PO Q6HP PRN #0 tab 12/23/16 03/17/17 Rx Aspirin [Ecotrin] 81 mg PO DAILY #1 tab.ec 12/23/16 03/17/17 Rx ranitidine 150 mg tablet 150 mg PO QHS #30 tab 01/23/17 03/17/17 Rx Aspirin/Acetaminophen/Caffeine 1 each PO PRN PRN 02/06/17 03/17/17 History [Excedrin Migraine Caplet] Famotidine [Acid Infection Prevention Coordinator] 20 mg PO DAILY 02/06/17 03/17/17 History insulin glargine 100 unit/mL (3 20 unit SUB-Q QHS #3 ml 02/08/17 03/17/17 Rx mL) subcutaneous pen alcohol swabs See Dose Instructions .ROUTE 02/14/17 03/05/17 Rx .MEDSUPPLY #120 pad potassium chloride ER 20 mEq 20 meq PO QDAY #30 tab 02/28/17 03/17/17 Rx tablet,extended release albuterol sulfate HFA 90 2 puff INHALATION ONCE PRN #8.5 g 03/05/17 03/17/17 Rx mcg/actuation aerosol inhaler Allergies Allergy/AdvReac Type Severity Reaction Status Date / Time Hydromorphone Allergy Severe " I quit Verified 03/17/17 20:36 breatghing" perfume Allergy Intermediate asthma Verified 03/17/17 20:36 attack morphine Allergy Mild SOB Verified 03/17/17 20:36 doxycycline Allergy Hives Verified 03/17/17 20:36 amitriptyline AdvReac Intermediate aggitated Verified 03/17/17 20:36 duloxetine [From Cymbalta] AdvReac Intermediate Stomach Verified 03/17/17 20:36 ache, nausea, headache, vomiting hydrocodone AdvReac Intermediate Vomiting/mi Verified 03/17/17 20:36 graines penicillin V [From Pen-Vee K] AdvReac Intermediate "Feels Verified 03/17/17 20: 36 like I am drunk" cephalexin AdvReac Mild Upset ABD Verified 03/17/17 20:36 codeine AdvReac Mild Upset ABD Verified 03/17/17 20:36 Erythromycin Base AdvReac Mild Upset ABD Verified 03/17/17 20:36 latex AdvReac Mild Redness of Verified 03/17/17 20:36 Skin Oxycodone AdvReac Mild "Upset ABD" Verified 03/17/17 20:36 artificial sweetners AdvReac Intermediate Headahe Uncoded 03/05/17 13:44 synthetic codine AdvReac Intermediate Hallucinating, Uncoded 03/05/17 13:44 pain intensifies Medical - H&P: Exam - Constitutional Vitals: Temp Pulse Resp BP Pulse Ox 97.7 F 115 H 18 144/69 96 03/17/17 20:31 03/17/17 22:46 03/17/17 22:46 03/17/17 22:46 03/17/17 22:46 Exam: GENERAL: The patient is a well-developed, well-nourished in no apparent distress. Is alert and oriented x3. VITAL SIGNS: Reviewed and as noted elsewhere. HEENT: Head is normocephalic and atraumatic. Extraocular muscles are intact. Pupils are equal, round, and reactive to light. Nares appeared normal. Mouth appears any without lesions. Mucous membranes are moist. NECK: Normal to inspection, Supple, No lymphadenopathy or thyromegaly. LUNGS: Air entry equal on both sides, no wheezing, crackles or rhonchi noted. No accessory muscles of respiration HEART: Regular rate and rhythm normal, S1 and S2 heard, no Gallop, S3 or Rub Noted, No Gross murmur heard. ABDOMEN: Soft, nontender, and nondistended. Positive bowel sounds. No hepatosplenomegaly was noted. EXTREMITIES: No cyanosis, clubbing, rash, lesions or edema. NEUROLOGIC: Cranial nerves II through XII are grossly intact. Motor system shows full strength, she has some right upper extremity pronator drop. and significant decreased touch sensation on the right arm and leg, and mild decrease in sensation on the right side of the face, Visual field by confrontation is wnl PSYCHIATRIC: Normal affect, Normal Mood. Appropriate Behavior. SKIN: No ulceration or wounds noted, No jaundice, No rash noted. Medical - H&P: Reslt - Labs CBC & Chem 7: 03/17/17 20:55 03/17/17 20:54 - EKG Data EKG comments: 03/18/17 01:12 EKG sinsu tach, poor r wave progression. old ant / CT, CT head is neg Medical - H&P: A/P - Narrative A/P Narrative: a/p TIA/ CVA: she has high risk factors, On asa, Monitor on tele, r/o afib, pt reports that she has intermittent palpitations. She may benefit from a [facility] heart monitor as outpatient if tele does not reveal any afib. Will get MR head in AM, echo in AM, stop ASA and start on clopidogrel PVD: H/o right leg pain, pulses present on exam, warm feet, will get юлия arterial dopplers, not sure if pain in the leg was from a thrombotic episode vs embolus. DM glucose uncontrlled, she was started on insulin last month, DM educator referral for now. HLD: Trial of pravastatin, and see if she can tolerate this, she has tried crestor and atorvastatin as per her in the past. dvt hep sq HTN monitor bp, for now, resume home meds, target bp 140/90 Cardiac diet Full code. hep B carrier: check serologies Social History - Social History marital status: - Tobacco smoking status: Former smoker - Alcohol alcohol intake frequency: does not drink - Substance use substance use type: does not use
[2017-03-18 01:50] LABS: Hemoglobin A1C 11.3 % HGB (4.0-6.0)
[2017-03-18 06:09] LABS: Basophils # (Auto) 0 K/mcL (0.0-0.3); Basophils % (Auto) 0.6 % (0.0-2.0); Eosinophils # (Auto) 0.1 K/mcL (0.0-0.7); Eosinophils % (Auto) 2.1 % (0.0-7.0); Granulocytes % (Auto) 60.9 % (38.0-78.0); Lymphocytes # (Auto) 1.8 K/mcL (1.5-4.8); Lymphocytes % (Auto) 28.7 % (15.5-49.0); Mean Cell Volume 91.2 fL (80.0-100.0); Mean Corpuscular Hemoglobin 31.9 pg (26.0-34.0); Monocytes # (Auto) 0.5 K/mcL (0.1-0.9); Monocytes % (Auto) 7.7 % (1.0-12.0); Platelet Count 277 K/mcL (140-440); RBC 3.79 M/mcL (4.00-5.20); Red Cell Distribution Width 12.7 % (11.5-14.5)
[2017-03-18] MEDS ORDERED: INSULIN LISPRO 1 UNIT/0.01 ML UNIT SQ SCH ×2 (07:00→07:30)
[2017-03-18 07:03] LABS: ALT/SGPT 24 U/l (0-40); Albumin 3.6 gm/dL (3.2-5.2); Albumin/Globulin Ratio 1.3 (1.0-2.3); Alkaline Phosphatase 115 U/L (39-117); Bilirubin,Direct < 0.2 mg/dL (0.0-0.3); Blood Urea Nitrogen 27 mg/dl (8-23); Gamma Glutamyl Transpeptidase 24 U/L (5-36); Magnesium 1.8 mg/dL (1.6-2.5); Uric Acid 6.9 mg/dL (2.5-8.0)
[2017-03-18] MEDS ORDERED: CLOPIDOGREL 75 MG TABLET PO SCH (09:00)
[2017-03-18] MEDS ORDERED: HEPARIN 5,000 UNIT/ML VIAL SQ SCH (09:00)
[2017-03-18] MEDS: INSULIN LISPRO 1 UNIT/0.01 ML UNIT SQ SCH ×4 (09:05→21:29)
[2017-03-18] MEDS: HEPARIN 5,000 UNIT/ML VIAL SQ SCH ×2 (09:06→21:27)
[2017-03-18] MEDS: FAMOTIDINE 20 MG TABLET PO SCH (09:07)
[2017-03-18] MEDS: HYDROCHLOROTHIAZIDE 25 MG TABLET PO SCH (09:07)
[2017-03-18] MEDS: CLOPIDOGREL 75 MG TABLET PO SCH (09:07)
[2017-03-18] MEDS: POTASSIUM CHLORIDE 20 MEQ TABLET PO SCH (09:07)
--- NOTE | 2017-03-18 09:18 | Cat Scan Report ---
CLINICAL INFORMATION: Acute right facial droop. Acute CVA possible COMPARISON: 12/22/2016 TECHNIQUE: 2.5 mm helical slices were obtained in the skull base to vertex. Following reconstruction, axial reformatted images were reviewed at bone and parenchymal windows. FINDINGS: The ventricles, sulci, fissures, and cisterns are normal in size configuration - no extra-axial fluid collection or mass appreciated. A small dystrophic calcification in the subcortical white matter of the right frontal lobe is again noted. No intracranial hemorrhage, mass effect, edema or other acute finding. Bone windows show no osseous abnormality. IMPRESSION: Negative Interpreted and Authenticated by: Spencer Roland 03/18/17
--- NOTE | 2017-03-18 11:05 | Ultrasound Report ---
CLINICAL INFORMATION: Right extremity weakness question TIA COMPARISON: None. TECHNIQUE: Carotid arteries were imaged in sagittal and transverse planes using 5 mHz linear probe: Doppler, color, and 2D. FINDINGS: See worksheet by the technologist for velocities in PACS Please correlate with CTA CT Angiography or MRA MR Angiography if surgery is contemplated. IMPRESSION: 1. 50-70% stenosis of the proximal right internal carotid artery. Right common carotid artery is widely patent. 50% stenosis of the right external carotid artery. 2. The left common, internal and external carotid arteries are widely patent. Moderate fibrofatty calcific plaque present in both carotid bifurcations 3. Antegrade flow present in both vertebral arteries. Interpreted and Authenticated by: Spencer Roland 03/18/17
--- NOTE | 2017-03-18 15:19 | Magnetic Resonance Report ---
CLINICAL INFORMATION: Transient right facial numbness and right-sided weakness on 03/17/2017. Apparently symptoms resolved except for some equivocal numbness in the facial region COMPARISON: Head CT from 03/17/2017. TECHNIQUE:Sagittal T1 FLAIR, axial T1 FLAIR, T2 FLAIR propeller, T2 propeller, gradient, diffusion, ADC and coronal T2 weighted images were acquired. FINDINGS: The ventricles, sulci, fissures and cisterns show minimal symmetric enlargement compatible with mild age-related atrophy - no extra-axial fluid collections or masses are appreciated. Scattered chronic ischemic foci in the deep and subcortical white matter - less than is typically seen in this age. A 4 mm region of T1 shortening in the right middle cerebellar peduncle axial T1 is not visualized on T1 sagittals and and appears normal on the other sequences. They should be considered artifact. There is a 5 mm low signal region in the subcortical white matter of the posterior right frontal lobe which represents dystrophic calcification seen on CT. There are no significant signal abnormalities. Signal void in intracerebral arteries, extra-axial cranial nerves, pituitary and orbits are normal. IMPRESSION: Minimal atrophy and scattered chronic ischemic foci in cerebral white matter less than is demonstrated this age group. Cause identified for facial numbness last weakness. Interpreted and Authenticated by: Spencer Roland 03/18/17
--- NOTE | 2017-03-18 17:38 | Ultrasound Report ---
CLINICAL INFORMATION: Peripheral arterial vascular disease - claudication COMPARISON: None. FINDINGS: See attached sheet IMPRESSION: 1. Abdominal aorta: Normal - 2.3 cm maximal diameter 2. Right leg runoff: Greater than 50% stenoses in the common and external iliac arteries with scattered stenoses in the common femoral, throughout the superficial femoral and trifurcation arteries of approximately 50% 3. Left leg runoff: Greater than 50% stenosis of the external iliac artery with scattered stenoses up to 50% in the common femoral, superficial femoral and trifurcation arteries. 4. Suggest: CT abdominal aortogram with runoff. If the patient cannot tolerate iodinated contrast, then a MR abdominal aortogram with runoff be adequate Interpreted and Authenticated by: Spencer Roland 03/18/17
[2017-03-18] MEDS ORDERED: INSULIN GLARGINE, HUMAN 1 UNIT/0.01 ML SQ SCH ×2 (21:00)
[2017-03-18] MEDS ORDERED: SIMVASTATIN 20 MG TABLET PO SCH (21:00)
[2017-03-19 06:54] LABS: ALT/SGPT 24 U/l (0-40); Albumin 3.4 gm/dL (3.2-5.2); Albumin/Globulin Ratio 1.2 (1.0-2.3); Alkaline Phosphatase 113 U/L (39-117); Bilirubin,Direct < 0.2 mg/dL (0.0-0.3); Blood Urea Nitrogen 24 mg/dl (8-23); Gamma Glutamyl Transpeptidase 22 U/L (5-36); Magnesium 1.8 mg/dL (1.6-2.5); Uric Acid 7.1 mg/dL (2.5-8.0)
--- NOTE | 2017-03-19 08:51 | Echocardiogram Report ---
ECHOCARDIOGRAM: 2-D and M-mode echocardiography with cardiac Doppler and color flow imaging were performed with a [employer] MX. Indication is TIA. Overall size of the four cardiac chambers and aortic root appeared normal. LV wall thickness appeared mildly increased. Systolic performance appeared vigorous. Estimated ejection fraction is 70%. The aortic valve appeared trileaflet. Light to moderate leaflet calcification was present. Valve opening appeared adequate. Maximal instantaneous aortic valve systolic gradient as obtained from the apex and as calculated by the modified Bernoulli equation was 16 mmHg, minimal aortic stenosis. There was no evidence for aortic regurgitation. The mitral and tricuspid valves appeared unremarkable. Doppler interrogation of LV inflow disclosed prolonged early diastolic deceleration time and ''a'' wave dominance indicating delayed LV relaxation. There was no evidence for mitral regurgitation. Pulmonary venous interrogation disclosed normal ''s'' wave dominance. The pulmonic valve was not visualized. Pulmonary artery acceleration time was difficult to measure. There was no evidence for pulmonic stenosis or pulmonic regurgitation. There was no evidence for tricuspid regurgitation. No intracardiac shunting was appreciated. There was no evidence for pericardial effusion. The IVC was not well visualized. Sinus rhythm, rate 94, was present. CONCLUSION:Aortic stenosis, probably minimal. Mild concentric LVH with vigorous systolic performance. Poorly visualized inferior vena cava. Since previous study 07/26/16 there are probably no major changes. (See accompanying M-mode and Doppler reports for quantitation.) ECHOCARDIOGRAPHY M-MODE CALCULATIONS: HT: 62'' WT: 262 BSA: 2.14 m2 NORMALS AORTA: AORTIC ROOT 3.1 2.0-3.7 cm LEFT ATRIUM 3.6 1.9-4.0 cm MITRAL VALVE: EXCURSION 2.0 1.9-2.7 cm EPSS 0.2 <0.5 cm LT VENTRICLE: LVID (ED) 5.0 3.5-5.7 cm LVID (ES) 3.4 SEPTAL THICKNESS 1.2 0.6-1.1 cm SEPTAL EXCURSION 0.4 0.3-0.8 cm LVPW THICKNESS 1.2 0.6-1.1 cm LVPW EXCURSION 1.0 0.9-1.4 cm MINOR AXIS FS 3.2 25%-40% RT VENTRICLE: RVID (ED) -- 0.9-2.6 cm(up to 3cm if LLD) QUALITATIVE DOPPLER FLOW STUDIES MITRAL VALVE Delayed LV relaxation AORTIC VALVE , probably minimal TRICUSPID VALVE -- PULMONIC VALVE -- QUANTITATIVE DOPPLER FLOW STUDIES SAMPLE SITES VELOCITIES PEAK PRESSURE VALVE AREA and/or VALVE WINDOW (PEAK,M/SEC) DROP (GRADIENT) PRESSURE HALF-TIME MV (Diastole) 0.8 1.0 -- -- MV (Systole) -- -- -- AO (Diastole) -- -- -- AO (Systole) 2.0 16 mmHg -- TV (Systole) -- -- -- PV (Systole) 1.1 -- -- PV (Diastole) -- LWG:evelio Job ID: [id number] Doc ID: [id number] Shane Walker MD
[2017-03-19 08:59] LABS: Basophils # (Auto) 0 K/mcL (0.0-0.3); Basophils % (Auto) 0.6 % (0.0-2.0); Eosinophils # (Auto) 0.2 K/mcL (0.0-0.7); Eosinophils % (Auto) 3.8 % (0.0-7.0); Lymphocytes % (Auto) 33.8 % (15.5-49.0); Mean Corpuscular HGB Conc 34.4 g/dL (31.0-36.0); Mean Corpuscular Hemoglobin 31.3 pg (26.0-34.0); Monocytes # (Auto) 0.4 K/mcL (0.1-0.9); Monocytes % (Auto) 6.8 % (1.0-12.0); Platelet Count 249 K/mcL (140-440); RBC 3.68 M/mcL (4.00-5.20); Red Cell Distribution Width 12.8 % (11.5-14.5)
[2017-03-19] MEDS: CLOPIDOGREL 75 MG TABLET PO SCH (11:11)
[2017-03-19] MEDS: POTASSIUM CHLORIDE 20 MEQ TABLET PO SCH (11:11)
[2017-03-19] MEDS: HYDROCHLOROTHIAZIDE 25 MG TABLET PO SCH (11:11)
[2017-03-19] MEDS: FAMOTIDINE 20 MG TABLET PO SCH (11:11)
[2017-03-19] MEDS: INSULIN LISPRO 1 UNIT/0.01 ML UNIT SQ SCH (11:12)
[2017-03-19] MEDS: HEPARIN 5,000 UNIT/ML VIAL SQ SCH (11:12)
--- NOTE | 2017-03-19 12:39 | Discharge Summary ---
Medical - DS: Prov Patient information: Note initiated : 03/19/17 at 12:37 pm Service Date, if different from initiated Date: [] Patient: Shawanda Healy 66 y/o F admitted on 03/17/17 for Facial Numbness/CVA. Chief Complaint: [] Date of admission: 03/17/17 23:52 Discharge date: 03/19/17 Primary care physician: Melody Galeas DO Admitting clinician: Mariam Carroll Discharging clinician: Mariam Carroll Medical - DS: Meds - Discharge Medications Prescriptions: Clopidogrel Bisulfate [Plavix] 75 mg PO DAILY #30 tablet Pravastatin [Pravachol] 40 mg PO HS #30 tablet Active and Home Medications: Home Medications Accu-Chek 1 each FS ACHS strip 12/23/16 [Rx Confirmed 03/18/17 Last Taken 03/16 22:00] Acetaminophen [Tylenol] 650 mg PO Q6HP PRN #0 tab 12/23/16 [Rx Confirmed Last Taken Unknown] Aspirin [Ecotrin] 81 mg PO DAILY #1 tab.ec 12/23/16 [Rx Confirmed 03/18/17 Last Taken 03/16/17 08:00] ranitidine 150 mg tablet 150 mg PO QHS #30 tab 01/23/17 [Rx Confirmed 03/18/17 Last Taken 03/16/17 20:00] Aspirin/Acetaminophen/Caffeine [Excedrin Migraine Caplet] 1 each PO PRN PRN [History Confirmed 03/17/17 Last Taken Unknown] potassium chloride ER 20 mEq tablet,extended release 20 meq PO QDAY #30 tab [Rx Confirmed 03/18/17 Last Taken 03/17/17 08:00] albuterol sulfate HFA 90 mcg/actuation aerosol inhaler 2 puff INHALATION ONCE PRN #8.5 g 03/05/17 [Rx Confirmed 03/17/17 Last Taken Unknown] Famotidine [Heartburn Relief] 40 mg PO DAILY 03/18/17 [History Confirmed Last Taken 03/17/17 08:00] Hydrochlorothiazide [Oretic] 25 mg PO HS 03/18/17 [History Confirmed 03/18/17 Last Taken 03/16/17 20:00] Insulin Glargine, Human [Lantus] 45 unit SQ HS 03/18/17 [History Confirmed 03/18 Last Taken 03/16/17 22:00] Medical - DS: Hosp Hospital course: Mr. Healy is a 66 year old female with h/o DM, and tia in the recent past presents to the ER with complaints of right side numbness, and weakness in the right leg, admitted to the hospital with diagnosis if TIA/ CVA TIA: Patient presented with NIH score of 9, but due to low score and elevated glucose on presentation, TPA was not given by tele neurologist. The patient was admitted for further management. The patient symptoms resolved quickly, but the time of admit her NIH score was 2, and next day her neurological symptoms had improved. P Had a neg CT head, Neg MRI head, Carotid duplex showed right ICA stenosis, 50- 70%, she had h/o claudication, US lower arterial dopplers suggest юлия iliac femoral stenosis. SHe had Echo which showed mild , normal lvef. The patient given her second TIA< and positive Carotid artery stenosis needs to have CTA or MRA which can be done by her PCP as outpatient. If those tests showed significant stenosis, then thep atient will likely benfit from vascular surgery or IR evluation. PVD: Noted on DUPLEX usg, also will need mra or CTA as outpatient. Given h/o TIA, patients ASA is changed to clopidogrel, She has been started on pravastatin. DM glucose uncontrolled a1c > 11, pt advised to get this under control, pcp has started insulin and patient is working towards improving her glucose values. Given her morbid obesity, sleep apenea eval should be considered, which can also help lower the risk of future CVA. At the time of discharge pt is back to baseline, she needs to follow up with PCP for further management. Discharge diagnosis: TIA - Time Spent with Patient Total time spent providing and/or coordinating discharge services: Greater than 30 minutes Medical - DS: Exam - Constitutional Vitals: Vital Signs Temp Pulse Resp BP Pulse Ox 03/19/17 10:00 98.0 F 18 156/78 95 03/19/17 04:00 97.8 F 96 H 18 147/59 93 03/19/17 00:04 97.8 F 93 H 16 155/69 96 03/18/17 19:30 98.4 F 20 164/83 95 03/18/17 18:38 100 H 94 03/18/17 16:00 97.9 F 94 H 18 188/76 98 03/18/17 13:00 98.2 F 96 H 18 126/70 94 Intake and Output 03/18/17 03/19/17 03/19/17 21:59 05:59 13:59 Intake Total 660 / 660 600 / 600 350 / 350 Output Total 700 / 700 1450 / 1450 Balance -40 / -40 -850 / -850 350 / 350 Intake: Oral 660 / 660 600 / 600 350 / 350 Output: Void Amount 700 / 700 1450 / 1450 Other: Meal snack Breakfast Percent of Meal Consumed 100% 100% Feeding Ability Assist with Tray Set Up Weight 261 lb 261 lb Patient Weight 03/20/17 05:59 Weight 261 lb Additional comments: Constitutional; Afebrile, cooperative, alert, not in distress. Eyes- No icterus, , No periorbital swelling Ears- Ext ear normal, hearing normal to conversation. Neck- Midline trachea, supple Respiratory system: Air Entry equal on both sides, No crackles or wheezing, no rhonchi. CVS- Rate rhythm regular, S1,S2 heard, no gallop, no rub. Abdomen- Soft nontender abdomen, no organomegaly, no tenderness, no guarding or rigidity, SUBWAY GUARD- AOOx3, moving all extremities, no gross focal deficit noted. Medical - DS: Data Labs on day of discharge: Labs from last 24 hours 03/19/17 03/19/17 03:40 03:40 WBC 6.0 RBC 3.68 L Hgb 11.5 L Hct 33.5 L MCV 91.0 MCH 31.3 MCHC 34.4 RDW 12.8 Plt Count 249 MPV 8.8 Gran % 55.0 Lymph % (Auto) 33.8 [place] % (Auto) 6.8 Eos % (Auto) 3.8 Baso % (Auto) 0.6 Gran # 3.3 Lymph # 2.0 [place] # 0.4 Eos # 0.2 Baso # 0 Sodium 140 Potassium 3.7 Chloride 100 Carbon Dioxide 24 Anion Gap 16.0 BUN 24 H Creatinine 1.2 H GFR Calculation 47 Glucose 269 H Uric Acid 7.1 Calcium 9.1 Phosphorus 3.7 Magnesium 1.8 Total Bilirubin 0.4 Direct Bilirubin < 0.2 GGT 22 AST 19 ALT 24 Alkaline Phosphatase 113 Lactate Dehydrogenase 247 Total Protein 6.2 Albumin 3.4 Globulin 2.8 Albumin/Globulin Ratio 1.2 Triglycerides 284 H Medical - DS: A/P - Patient/Caregiver Discharge Instructions Activity: increase activity as tolerated Diet: Cardiac, Consistent Carbohydrate Additional Instructions: Follow up with PCP in 7-10 days Go to ER if new symptoms of stroke, chest pain, fever or shortness of breath, or any other concerning symptom. You have carotid artery narrowing on the right side, talk to your PCP about getting a CT or MR of the neck and then a evaluation by vascular surgery for intervention if study is positive. You have peripheral artery disease and need A CT or MR of arteries of both limbs , talk to your pcp regarding same and need for vascular eval of tests positive. - Follow up Plan Follow up with: Melody Galeas DO [Primary Care Provider] - 03/26/17 10:30 am (Please continue with your previously schedule appointment.) Disposition: Home, Self-Care Prognosis: Fair Rehab Potential: Fair I certify that the patient requires SNF services: No Overall status at discharge: patient is back to baseline Medical - DS: Qual - VTE Deep Vein Thrombosis/Pulmonary Embolism Present on Admission: Yes
== END 2017-03-19 14:40 | disposition home or self-care (01) ==
LOC: ICU 20:30 → ED 20:30 → ICU 03-18
PROVIDERS: ADMIT Internal Medicine; ATTEND Internal Medicine

== ENCOUNTER 2017-09-07 22:00 | Inpatient (IN) ==
[2017-09-07] MEDS ORDERED: 0.9 % SODIUM CHLORIDE 1,000 ML IV ONE (22:23)
[2017-09-07] MEDS ORDERED: ACETAMINOPHEN 325 MG TABLET PO ONE (22:23)
[2017-09-07 23:38] LABS: Basophils # (Auto) 0 K/mcL (0.0-0.3); Basophils % (Auto) 0.7 % (0.0-2.0); Eosinophils # (Auto) 0 K/mcL (0.0-0.7); Eosinophils % (Auto) 0.3 % (0.0-7.0); Granulocytes % (Auto) 83.5 % (38.0-78.0); Lymphocytes # (Auto) 0.4 K/mcL (1.5-4.8); Lymphocytes % (Auto) 6.3 % (15.5-49.0); Mean Cell Volume 87.3 fL (80.0-100.0); Mean Corpuscular HGB Conc 33.7 g/dL (31.0-36.0); Mean Corpuscular Hemoglobin 29.4 pg (26.0-34.0); Monocytes # (Auto) 0.6 K/mcL (0.1-0.9); Monocytes % (Auto) 9.2 % (1.0-12.0); Platelet Count 223 K/mcL (140-440); Red Cell Distribution Width 12.4 % (11.5-14.5)
[2017-09-07 23:54] LABS: ALT/SGPT 18 U/l (0-40); Albumin 3.5 gm/dL (3.2-5.2); Albumin/Globulin Ratio 1.2 (1.0-2.3); Alkaline Phosphatase 87 U/L (39-117); Blood Urea Nitrogen 29 mg/dl (8-23)
[2017-09-08] MEDS ORDERED: 0.9 % SODIUM CHLORIDE 1,000 ML IV ONE (00:32)
[2017-09-08] MEDS ORDERED: cefTRIAXone 1 GM VIAL IV ONE (01:10)
[2017-09-08] MEDS ORDERED: VANCOMYCIN 1,000 MG in 0.9 % SODIUM CHLORIDE 250 ML IV ONE (01:10)
--- NOTE | 2017-09-08 01:16 | Emergency Department Note ---
Fever HPI - General Chief Complaint: Fever Stated Complaint: dizziness fever Time Seen by Provider: 09/07/17 22:14 Source: patient Mode of arrival: wheelchair Limitations: no limitations - History of Present Illness HPI Narrative: 67-year-old female who has had a fever for the last 3 days. She actually fell down on and did not hurt herself but that was the point where she realized she had a fever. EMS actually had to come in and help her bring her into the house. she she says she was getting better yesterday until this morning when she felt significantly weaker and had an episode of diarrhea started today. No nausea or vomiting. She denies any ear nose throat issues including no sore throat or ear pain. She denies any melena or hematochezia; however she did take some Pepto-Bismol. Feeling so weak today that she cannot even move around or get out of bed to walk to the bathroom. She did not have a flu shot this year. EMS said that her fever was 104.6 - Related Data Home Medications Medication Instructions Recorded Confirmed Aspirin/Acetaminophen/Caffeine 1 each PO PRN PRN 02/06/17 08/17/17 [Excedrin Migraine Caplet] Hydrochlorothiazide [Oretic] 25 mg PO HS 03/18/17 08/17/17 Previous Rx's Medication Instructions Recorded Accu-Chek 1 each FS ACHS strip 12/23/16 Acetaminophen [Tylenol] 650 mg PO Q6HP PRN #0 tab 12/23/16 ranitidine 150 mg tablet 150 mg PO QHS #30 tab 01/23/17 albuterol sulfate HFA 90 2 puff INHALATION ONCE PRN #8.5 g 03/05/17 mcg/actuation aerosol inhaler insulin aspart 100 unit/mL See Label Instructions SUB-Q ONCE 03/26/17 subcutaneous pen #3 ml pregabalin 50 mg capsule 50 mg PO TID #90 cap 04/09/17 blood sugar diagnostic strips See Dose Instructions .ROUTE 04/11/17 .MEDSUPPLY #100 each blood-glucose meter kit See Dose Instructions .ROUTE 04/11/17 .MEDSUPPLY #1 each clopidogrel 75 mg tablet 75 mg PO DAILY #30 tab 04/23/17 potassium chloride ER 20 mEq 20 meq PO QDAY #30 tab 05/28/17 tablet,extended release famotidine 20 mg tablet 40 mg PO DAILY #60 tab 07/11/17 empagliflozin 10 mg tablet 10 mg PO QDAY #90 tab 08/05/17 pen needle, diabetic 32 gauge x See Dose Instructions .ROUTE 08/06/17" .MEDSUPPLY #100 each fenofibrate 54 mg tablet 108 mg PO QDAY #60 tab 08/10/17 ketotifen 0.025 % (0.035 %) eye 1 drp OPHTHALMIC BID #5 ml 08/17/17 drops insulin glargine 100 unit/mL (3 65 unit SUB-Q QHS #3 ml 08/22/17 mL) subcutaneous pen Allergies Allergy/AdvReac Type Severity Reaction Status Date / Time Hydromorphone Allergy Severe " I quit Verified 08/17/17 11:05 breatghing" insulin glargine Allergy Intermediate rash and Verified 08/22/17 11:41 itching all over perfume Allergy Intermediate asthma Verified 08/17/17 11:05 attack doxycycline Allergy Mild Hives Verified 08/17/17 11:05 amitriptyline AdvReac Intermediate aggitated Verified 08/17/17 11:05 duloxetine [From Cymbalta] AdvReac Intermediate Stomach Verified 08/17/17 11:05 ache, nausea, headache, vomiting hydrocodone AdvReac Intermediate Vomiting/mi Verified 08/17/17 11:05 graines penicillin V [From Pen-Vee K] AdvReac Intermediate "Feels Verified 08/17/17 11: 05 like I am drunk" cephalexin AdvReac Mild Upset ABD Verified 08/17/17 11:05 codeine AdvReac Mild Upset ABD Verified 08/17/17 11:05 Erythromycin Base AdvReac Mild Upset ABD Verified 08/17/17 11:05 latex AdvReac Mild Redness of Verified 08/17/17 11:05 Skin morphine AdvReac Mild SOB Verified 08/17/17 11:05 Oxycodone AdvReac Mild "Upset ABD" Verified 08/17/17 11:05 artificial sweetners AdvReac Intermediate Headahe Uncoded 08/17/17 11:05 synthetic codine AdvReac Intermediate Hallucinating, Uncoded 08/17/17 11:05 pain intensifies Review of Systems All systems ED: reviewed and negative except as stated. Fever PMH - Past Medical History Attestation: Yes: The following information was validated with the patient. Medical history: Reports: arthritis, asthma, CVA, diabetes, fibromyalgia, GERD, hyperlipidemia, hypertension, liver disease (hepatitis B), migraine, thyroid disease, TIA, other (obesity, chronic sinus headaches, lymphedema, psoriasis, HBV carrier) Surgical history ED: Reports: appendectomy, cataract, cholecystectomy, hysterectomy, orthopedic, other (knee), tonsillectomy, other (zenker's) Psychiatric history: Reports: anxiety - Social History smoking status: Former smoker Alcohol use: Reports: None Drug use: Reports: none Physical Exam Obese female no acute distress. Normocephalic atraumatic. Conjunctive are clear sclerae white and nonicteric. No nasal discharge or congestion. Oropharynx is pink and moist. Neck is supple without lymphadenopathy or thyromegaly. Heart is tachycardic but regular rhythm. No murmur appreciated. Lungs are clear to auscultation bilaterally without wheezes rales rhonchi or respiratory distress. Abdomen is soft nontender nondistended. No peritoneal signs or guarding. Significant severe lymphedema bilateral feet to knees-these are currently wrapped. A small patch of guttate psoriasis is seen at her left foot. +2 radial pulse. She is alert oriented able to answer questions appropriately. No dysarthria or ataxia is noted. She is moving her head normally Limitations: no limitations Course Vital Signs Temperature 101.2 F H 09/07/17 22:03 Pulse Rate 114 H 09/07/17 22:03 Respiratory Rate 16 09/07/17 22:03 Blood Pressure 168/94 09/07/17 22:03 Pulse Oximetry (%) 94 09/07/17 22:03 Temperature 101.2 F H 09/07/17 22:47 Pulse Rate 108 H 09/07/17 23:11 Respiratory Rate 15 09/07/17 23:11 Blood Pressure 162/66 09/07/17 23:01 Pulse Oximetry (%) 94 09/07/17 23:11 Fever - Lab Data Lab results reviewed: Yes I reviewed the patient's lab results. Result diagrams: 09/07/17 22:37 09/07/17 22:37 Lab Results 09/07/17 09/07/17 09/07/17 Range/Units 22:37 22:37 22:37 WBC 6.9 (4.5-11.0) K/mcL RBC 3.60 L (4.00-5.20) M/mcL Hgb 10.6 L (12.0-15.0) g/dL Hct 31.5 L (36.0-48.0) % MCV 87.3 (80.0-100.0) fL MCH 29.4 (26.0-34.0) pg MCHC 33.7 (31.0-36.0) g/dL RDW 12.4 (11.5-14.5) % Plt Count 223 (140-440) K/mcL MPV 8.2 (7.4-10.4) fL Gran % 83.5 H (38.0-78.0) % Lymph % (Auto) 6.3 L (15.5-49.0) % [place] % (Auto) 9.2 (1.0-12.0) % Eos % (Auto) 0.3 (0.0-7.0) % Baso % (Auto) 0.7 (0.0-2.0) % Gran # 5.9 (1.8-8.0) K/mcL Lymph # (Auto) 0.4 L (1.5-4.8) K/mcL [place] # (Auto) 0.6 (0.1-0.9) K/mcL Eos # (Auto) 0 (0.0-0.7) K/mcL Baso # (Auto) 0 (0.0-0.3) K/mcL VBG Lactic Acid 0.5 (0.5-2.2) mmol/L Sodium 140 (133-145) mmol/L Potassium 3.5 (3.3-5.1) mmol/L Chloride 101 (96-108) mmol/L Carbon Dioxide 23 (22-30) mmol/L Anion Gap 16.0 (8-16) BUN 29 H (8-23) mg/dl Creatinine 1.4 H (0.6-1.1) mg/dl GFR Calculation 39 Glucose 134 H (70-105) mg/dL Calcium 8.5 L (8.6-10.4) mg/dl Total Bilirubin 0.5 (0.0-1.0) mg/dL AST 22 (0-37) U/l ALT 18 (0-40) U/l Alkaline Phosphatase 87 (39-117) U/L Total Protein 6.5 (5.9-8.4) gm/dL Albumin 3.5 (3.2-5.2) gm/dL Globulin 3.0 (2.2-3.7) gm/dL Albumin/Globulin Ratio 1.2 (1.0-2.3) Urinalysis [id number] dipstick shows trace leukocytes moderate blood and specific gravity 1.015 - Radiology Data Radiology results reviewed: Yes I reviewed the patient's radiology results. Chest x-ray shows no acute cardiopulmonary disease. CT scan of the head shows no hydrocephalus or acute intracranial process Disposition Pt seen by MANAGER [employer]/PA only: No Clinical Impression: Fever of unknown origin Summary: Initially worked up with chest x-ray, urinalysis, laboratory. Given normal saline IV fluid and Tylenol for pain Chest x-ray unrevealing. Laboratory flu swab negative for acute causes. Urinalysis is equivocal with trace leukocytes and moderate blood but this is unlikely to cause a significant fever. She does continue to have headache despite Tylenol-she is allergic to narcotics so could not give anything stronger. As she has a high fever, headache and I do not have a source for the fever, LP is indicated to rule out meningitis. CT scan of the head was then done in preparation for LP which was negative for hydrocephalus. I called anesthesia in as she is a large woman and 1 expect it would be very difficult to do a lumbar puncture on her; however Alex, nurse sales development director concrete boom pump operator, refused to do lumbar puncture because she is on Plavix-he felt the risks outweighed the benefits, in this particular patient because of the likely difficulty. So I started empiric antibiotics with Rocephin and vancomycin. I discussed her situation with Dr. Jessica, hospitalist, who agreed to accept the patient for further care and workup Disposition: Xfer As Inpt ([facility]) Condition: Serious Referrals: Melody Galeas, [Primary Care Provider] -
[2017-09-08] MEDS ORDERED: KETOROLAC 15 MG/ML VIAL IV ONE (01:41)
--- NOTE | 2017-09-08 02:10 | Internal Med History&Physical ---
Medical - H&P: HPI Patient information: Note initiated : 09/08/17 at 2:08 am Patient: Shawanda Healy 67 y/o F admitted on for dizziness fever. History of present illness: Ms. Healy is a 67 year old female with a history of fibromyalgia, psoriasis, TIA , irritable bowel syndrome who has been struggling with fatigue and leg pain for about 3 years since a fall. She now has chronic lymphedema of her left greater than right lower leg. She was in her usual state of health until 3 days prior to admission. She said she had brought her here to the hospital for a GI evaluation, and developed sudden onset of chills. By the time she got home she was having shaking chills, and collapsed when getting out of her car. Her had to call the building specialist to help get her back into her home. The next day her was able to get her up to use a walker to get to and from the bathroom, but she started to run a high fever. Late last night the building specialist were called back because she was so weak, and she says the building specialist reported her temperature at 104.6. She says she has had a bad bitemporal headache for the last few days, but denies significant neck stiffness, although her neck is sore this morning from "lying in bed too long". She does note that her head feels a little worse if she sits up. ER evaluation did show a temperature of 101.2. Screens for influenza were negative. Chest x-ray was unrevealing. Urinalysis was mildly abnormal. Anesthesia was called to do an LP, but they declined as the patient is on Plavix and aspirin. She denies dizziness, new eye or ear symptoms, significant sinus symptoms, sore throat or cough, swollen glands, chest pain or palpitations , shortness of breath or cough, abdominal pain, nausea or vomiting. She did have one episode of very loose stools yesterday, but no bowel movement since then. She denies dysuria. She says her left lower extremity lymphedema seems a little worse the last couple of days, but not significantly so. Her only new medication was Celebrex, which was started about 3 weeks ago. PMH: CVA (cerebral vascular accident) (Acute) Hypertensive urgency (Resolved) TIA (transient ischemic attack) (Resolved) 12/2016 and 03/17/2017 GERD (gastroesophageal reflux disease) (Chronic) Lymphedema of both lower extremities (Chronic) Neuropathy (Chronic) Psoriasis (Chronic) from IBS (irritable bowel syndrome) (Chronic) 1995 Disorder of thyroid gland (Chronic) 1999 Insomnia (Chronic) 1989 High cholesterol (Chronic) 2011 Hypertension (Chronic) 2014 Diabetes mellitus, type II (Chronic) 2011 Fibromyalgia (Chronic) 1989 Basal cell carcinoma (Chronic) 2013 under right eye Arthritis (Chronic) 1966 Anxiety (Chronic) 1986 Asthma (Chronic) Encounter for wellness examination (Acute) 07/16/16 Atypical chest pain (Resolved) Costalchondritis (Resolved) Diabetes follow-up (Resolved) Headache (Resolved) Hepatitis B (Resolved) 1958 still a carrier Hypokalemia (Resolved) Joint pain (Resolved) 1989 Stomach ulcer (Resolved) 1986 Surgical History History of tonsillectomy and adenoidectomy (Chronic) 1960 Hx of appendectomy (Chronic) 1973 Hx of bilateral cataract extraction (Chronic) 2014 Hx of cholecystectomy (Chronic) Hx of excision of Zenker's diverticulum (Chronic 11/15/16) Hx of hysterectomy (Chronic) 1974 Hx of oophorectomy (Chronic) 1978 Hx of right knee surgery (Chronic) 1981 Medication List Celebrex was started 3 weeks ago for her arthritis pain. [Accu-Chek 1 EACH 1 ea FS ACHS] acetaminophen 650 mg (2 x 325 mg) PO Q6HP PRN albuterol sulfate HFA 90 mcg/actuation (Ventolin HFA) 2 puffs Inhalation ONCE PRN [id number] 250-250-65 mg 1 ea PO PRN PRN blood sugar diagnostic strips (Blood Glucose Test strips) TID blood-glucose meter kit (Blood Glucose Monitoring kit) TID clopidogrel 75 mg PO DAILY empagliflozin (Jardiance) 10 mg PO QDAY famotidine 40 mg (2 x 20 mg) PO DAILY fenofibrate 108 mg (2 x 54 mg) PO QDAY gentamicin 0.3% 2 drps ophthalmic (eye) Q4H 5 days hydrochlorothiazide 25 mg PO HS insulin aspart (Novolog Flexpen) 6-8 units per moderate dose ss SUB-Q ONCE; administer within 5-10 min before a meal/food and no later than at the start of the meal/snack insulin glargine (Lantus Solostar) 60 units (0.6 mL) Sub-Q QHS insulin glargine (Toujeo SoloStar) 60 units (0.2 mL) Sub-Q QHS pen needle, diabetic (BD Ultra-Fine Meryl Pen Bowman) qid potassium chloride ER 20 mEq PO QDAY pregabalin (Lyrica) 50 mg PO TID ranitidine (Zantac) 150 mg PO QHS Allergies/Adverse Reactions Hydromorphone Allergy (Severe, Verified 08/17/17 11:05) " I quit breatghing" perfume Allergy (Intermediate, Verified 08/17/17 11:05) asthma attack doxycycline Allergy (Mild, Verified 08/17/17 11:05) Hives amitriptyline Adverse Reaction (Intermediate, Verified 08/17/17 11:05) aggitated duloxetine [From Cymbalta] Adverse Reaction (Intermediate, Verified 08/17/17 11: 05) Stomach ache, nausea, headache, vomiting hydrocodone Adverse Reaction (Intermediate, Verified 08/17/17 11:05) Vomiting/migraines penicillin V [From Pen-Vee K] Adverse Reaction (Intermediate, Verified 08/17/17 11:05) "Feels like I am drunk" cephalexin Adverse Reaction (Mild, Verified 08/17/17 11:05) Upset ABD codeine Adverse Reaction (Mild, Verified 08/17/17 11:05) Upset ABD Erythromycin Base Adverse Reaction (Mild, Verified 08/17/17 11:05) Upset ABD latex Adverse Reaction (Mild, Verified 08/17/17 11:05) Redness of Skin morphine Adverse Reaction (Mild, Verified 08/17/17 11:05) SOB Oxycodone Adverse Reaction (Mild, Verified 08/17/17 11:05) "Upset ABD" artificial sweetners Adverse Reaction (Intermediate, Uncoded 08/17/17 11:05) Headahe synthetic codine Adverse Reaction (Intermediate, Uncoded 08/17/17 11:05) Hallucinating, pain intensifies Family History Grandfather Cancer;father stomach cancer; maternal aunt-lung cancer, niece-cervical cancer Mother non-hodgkins lymphoma and brain cancer Brother Liver cancer, brother-brain cancer Diabetes mellitus, type II Grandmother Dementia Migraine Sister Migraine Daughter Migraine Social History She is and lives with her . She does not use alcohol or drugs. She quit smoking many years ago. marital status: Medical - H&P: Meds Home Medications Medication Instructions Recorded Confirmed Type Albuterol Sulfate [Ventolin] 2 puff INH Q4-6HP PRN 09/08/17 09/08/17 History Aspirin [Emeli Chewable Aspirin] 81 mg PO DAILY 09/08/17 09/08/17 History Aspirin/Acetaminophen/Caffeine 2 each PO TIDP PRN 09/08/17 09/08/17 History [Excedrin Migraine Caplet] Celecoxib 50 mg PO BID 09/08/17 09/08/17 History Clopidogrel Bisulfate [Plavix] 75 mg PO DAILY 09/08/17 09/08/17 History Famotidine [Pepcid] 40 mg PO DAILY 09/08/17 09/08/17 History Flaxseed Oil [Flax Seed Oil] 1,000 mg PO DAILY 09/08/17 09/08/17 History Hydrochlorothiazide [Oretic] 25 mg PO DAILY 09/08/17 09/08/17 History Insulin Aspart [Novolog] See Protocol SQ ACHS 09/08/17 09/08/17 History Insulin Glargine,Hum.rec.anlog 65 unit SQ HS 09/08/17 09/08/17 History [Lantus Solostar] Magnesium Oxide [Elizabeth] 500 mg PO DAILY 09/08/17 09/08/17 History Multivitamin [One Daily] 1 each PO DAILY 09/08/17 09/08/17 History [place]-3/Dha/Epa/Fish Oil [Fish Oil 2,000 mg PO DAILY 09/08/17 09/08/17 History 1,000 mg Softgel] Potassium Chloride [K-Tab ER] 20 meq PO DAILY 09/08/17 09/08/17 History Pregabalin [Lyrica] 50 mg PO TID 09/08/17 09/08/17 History Ranitidine HCl [Zantac] 150 mg PO HS 09/08/17 09/08/17 History Simethicone [Gas Relief] 250 mg PO TIDP PRN 09/08/17 09/08/17 History Ubidecarenone/Vit E Acetate [Co 1 each PO DAILY 09/08/17 09/08/17 History Q-10 100 mg Softgel] Vitamin D3 5,000 unit PO DAILY 09/08/17 09/08/17 History guaiFENesin/ePHEDrine HCL 1 each PO TIDP PRN MDD 3 tablets 09/08/17 09/08/17 History [Primatene Asthma Tablet] Allergies Allergy/AdvReac Type Severity Reaction Status Date / Time Hydromorphone Allergy Severe " I quit Verified 08/17/17 11:05 breatghing" insulin glargine Allergy Intermediate rash and Verified 08/22/17 11:41 itching all over perfume Allergy Intermediate asthma Verified 08/17/17 11:05 attack doxycycline Allergy Mild Hives Verified 08/17/17 11:05 amitriptyline AdvReac Intermediate aggitated Verified 08/17/17 11:05 duloxetine [From Cymbalta] AdvReac Intermediate Stomach Verified 08/17/17 11:05 ache, nausea, headache, vomiting hydrocodone AdvReac Intermediate Vomiting/mi Verified 08/17/17 11:05 graines penicillin V [From Pen-Vee K] AdvReac Intermediate "Feels Verified 08/17/17 11: 05 like I am drunk" cephalexin AdvReac Mild Upset ABD Verified 08/17/17 11:05 codeine AdvReac Mild Upset ABD Verified 08/17/17 11:05 Erythromycin Base AdvReac Mild Upset ABD Verified 08/17/17 11:05 latex AdvReac Mild Redness of Verified 08/17/17 11:05 Skin morphine AdvReac Mild SOB Verified 08/17/17 11:05 Oxycodone AdvReac Mild "Upset ABD" Verified 08/17/17 11:05 artificial sweetners AdvReac Intermediate Headahe Uncoded 08/17/17 11:05 synthetic codine AdvReac Intermediate Hallucinating, Uncoded 08/17/17 11:05 pain intensifies Medical - H&P: Exam - Constitutional Vitals: Temp Pulse Resp BP Pulse Ox 98.5 F 93 H 12 141/68 96 09/08/17 01:46 09/08/17 01:46 09/08/17 01:46 09/08/17 01:46 09/08/17 01:46 On exam, she is a fatigued appearing obese female lying in bed covered under a pile of blankets. She reports she feels cold from the inside out. Temperature at home was reported by building specialist as 104.6. Temperature on arrival to the ER was 101.2, with heart rate of 114, respiratory rate ranging from 16-23, blood pressure varied from 77-168/66-94. O2 saturation 94% on room air. Head: Normocephalic, atraumatic. Eyes: Pupils are fairly pinpoint, EOMI, anicteric. Ears: TMs and canals are clear. Sinuses appear nontender. Pharynx: Mucosa is dry. Pharynx is a bit crowded. Teeth are in fair condition. Neck: Appears fairly supple. She is able to put her chin to her chest with only some mild discomfort in the posterior neck, but no increase in headache. There is no obvious lymphadenopathy, JVD, thyromegaly. She does have soft bilateral carotid bruits. Cardiac exam: Shows regular rate and rhythm with normal S1 and S2, without obvious murmurs, rubs, gallops. Lungs: Clear to auscultation, without obvious rales, rhonchi, wheezes. Abdomen: Is obese, but soft and nontender without obvious masses. Bowel sounds are active. Extremities: She is generally puffy swollen legs below the knees bilaterally, more so on the left. However, there is no pitting edema, no erythema, no increased warmth. Neurologic exam: Patient is alert and oriented, calm and cooperative. Cranial nerves are grossly intact. Motor exam is grossly nonfocal, although the patient reports generalized weakness. She is able to sit up with a little bit of help. She declines to get out of bed to perform any activities. Skin exam: Does not show obvious rashes or other worrisome lesions. Medical - H&P: Reslt - Labs CBC & Chem 7: 09/08/17 03:44 09/08/17 03:44 Labs: Short CBC 09/07/17 Range/Units 22:37 WBC 6.9 (4.5-11.0) K/mcL Hgb 10.6 L (12.0-15.0) g/dL Hct 31.5 L (36.0-48.0) % Plt Count 223 (140-440) K/mcL BMP 09/07/17 22:37 Sodium 140 Potassium 3.5 Chloride 101 Carbon Dioxide 23 BUN 29 H Creatinine 1.4 H Glucose 134 H Calcium 8.5 L Liver Function 09/07/17 Range/Units 22:37 Total Bilirubin 0.5 (0.0-1.0) mg/dL AST 22 (0-37) U/l ALT 18 (0-40) U/l Alkaline Phosphatase 87 (39-117) U/L Albumin 3.5 (3.2-5.2) gm/dL September 08: Chest x-ray from this morning shows no change in mild bibasilar airspace disease which is likely atelectasis. CBC shows hemoglobin of 9.9, hematocrit 28.7. Baseline H and H appeared to be around 12 and 36. Urinalysis shows 5 ketones, positive nitrites, 5 white blood cells, few bacteria , negative leukocyte esterase. September 07: Chest x-ray: Showed mild left basilar atelectasis. Moderate thoracic spine degenerative disc disease. Old left clavicle fracture. Minimal wedging of thoracic vertebrae. Head CT showed no acute disease. Medical - H&P: A/P (1) Anemia Current visit: Yes Status: Acute (2) Fever of unknown origin Current visit: Yes Status: Acute (3) CVA (cerebral vascular accident) Current visit: No Status: Chronic (4) Diabetes mellitus, type II Problem details: 2011 Current visit: No Status: Chronic (5) Lymphedema of both lower extremities Current visit: No Status: Chronic (6) Psoriasis Problem details: from Current visit: No Status: Chronic - Narrative A/P Narrative: #1. Infectious disease, fever of uncertain origin. Patient meets criteria for SIRS syndrome. The source of her sudden onset high fever is unclear. Blood and urine cultures are pending. Patient is admitted for further workup and treatment. -Monitor on telemetry. -Patient is covered with Rocephin and vancomycin, which should cover common infections, meningitis, MRSA. -Ideally, we would also do a lumbar puncture. Anesthesia is reluctant to do this until the patient has been off of Plavix for at least 7 days. By that time , even if she had meningitis, CSF may have cleared. -Patient does have chronic lymphedema, but does not have obvious signs of lower extremity cellulitis at this time. 2. CODE STATUS: Patient prefers to remain a full code. Her would act as her POA. She would not want long-term life support. 3. DVT prophylaxis: We will likely continue with Plavix, once her home medication list is verified. 4. Type 2 diabetes. Hemoglobin A1c is 7.3%, which indicates reasonable control. Continue Lantus plus sliding scale. Accu-Cheks before meals and at bedtime. Hold Jardience, regarding increased risk of UTI, yeast infections. #5. Rheumatologic. History of psoriasis, so she may be somewhat immunocompromised. However, she is not currently taking medications for this. She was started on Celebrex recently for joint pain, and was to have follow-up with a new panelboard operator. -Also history of fibromyalgia. Continue current medications. 6. GI. Patient presents with anemia which is worse than her baseline. She certainly could have a low-grade GI bleed due to the Celebrex. Hold Celebrex. Monitor H and H. -Reported history of GERD. Resume Pepcid or add a proton pump inhibitor. -Past history of hepatitis B, in remission. -Reported history of irritable bowel syndrome. Patient had one episode of diarrhea, so C. difficile screen was ordered. However, she has not had further stools since her arrival. 7. Renal. Patient presents with acute worsening of renal function, having bumped her creatinine from 1.1 up to 1.4. She was hydrated overnight, and this is somewhat improved this morning. #8. Generalized weakness, chronic pain, and what sounds like general decline in ability to perform ADLs over the last few years. -Physical therapy and occupational therapy evaluations. Case management referral to look into other services the patient might be eligible for. Approximately 70 minutes was spent today, reviewing the patient's history and test results, reviewing her case with the ER MD, interviewing and examining her , reviewing her status with anesthesia, and writing orders.
[2017-09-08] MEDS ORDERED: DEXTROSE 50% 50 ML VIAL IV PRN (02:31)
[2017-09-08] MEDS ORDERED: ACETAMINOPHEN 325 MG TABLET PO PRN (02:31)
[2017-09-08] MEDS ORDERED: cefTRIAXone 2 GM in DEXTROSE 5% IN WATER 50 ML IV SCH (02:31)
[2017-09-08] MEDS ORDERED: ALBUTEROL SULFATE 2.5 MG/3 ML NEBULIZER NEB PRN (02:31)
[2017-09-08] MEDS ORDERED: VANCOMYCIN PER PHARMACY IV ONE (02:31)
[2017-09-08] MEDS ORDERED: MAGNESIUM HYDROXIDE 30 ML ORAL.SUSP PO PRN (02:31)
[2017-09-08] MEDS ORDERED: DEXTROSE 31 GM ORAL.SUSP PO PRN (02:31)
[2017-09-08] MEDS ORDERED: DOCUSATE SODIUM 100 MG CAPSULE PO PRN (02:31)
[2017-09-08] MEDS ORDERED: POTASSIUM CHLORIDE 20 MEQ/10 ML VIAL IV ONE (02:44)
[2017-09-08] MEDS: POTASSIUM CHLORIDE 20 MEQ in 0.45 % SODIUM CHLORIDE 1,000 ML IV SCH ×4 (02:52→21:12)
[2017-09-08] MEDS ORDERED: cefTRIAXone 1 GM VIAL ONE (03:08)
[2017-09-08] MEDS ORDERED: INSULIN GLARGINE, HUMAN 1 UNIT/0.01 ML SQ ONE (03:17)
[2017-09-08] MEDS ORDERED: ACETAMINOPHEN 325 MG TABLET PO ONE (03:17)
[2017-09-08 04:48] LABS: Appearance,Urine HAZY; Bacteria,Urine FEW /hpf (0); Bilirubin,Urine NEG (NEG); Color,Urine YELLOW; Glucose,Urine (UA) NEGATIVE (NEG); Leukocyte Esterase,Urine NEG /uL (NEG); Mucus,Urine FEW /hpf (0); Nitrate,Urine POS (NEG); Protein,Urine NEG (NEG); Specific Gravity,Urine 1.011 (1.000-1.035); Urine Amorphous Crystals FEW /hpf (0); Urine Blood 0.03 mg/dL (<0.03); Urine RBC 1 /hpf (0-1); Urine Squamous Epithelial Cell 1 /hpf (0-4); Urine Transitional Epi Cells < 1 /hpf (0-2); Urine WBC 5 /hpf (0-4); Urobilinogen,Urine NEG (NEG)
[2017-09-08 04:55] LABS: Basophils # (Auto) 0 K/mcL (0.0-0.3); Basophils % (Auto) 0.1 % (0.0-2.0); Eosinophils # (Auto) 0 K/mcL (0.0-0.7); Eosinophils % (Auto) 0.2 % (0.0-7.0); Granulocytes % (Auto) 76.7 % (38.0-78.0); Lymphocytes # (Auto) 0.7 K/mcL (1.5-4.8); Lymphocytes % (Auto) 13.7 % (15.5-49.0); Mean Cell Volume 89.7 fL (80.0-100.0); Mean Corpuscular HGB Conc 34.4 g/dL (31.0-36.0); Mean Corpuscular Hemoglobin 30.8 pg (26.0-34.0); Monocytes # (Auto) 0.5 K/mcL (0.1-0.9); Monocytes % (Auto) 9.3 % (1.0-12.0); Platelet Count 189 K/mcL (140-440); RBC 3.21 M/mcL (4.00-5.20); Red Cell Distribution Width 13.5 % (11.5-14.5)
[2017-09-08 05:02] LABS: Hemoglobin A1C 7.3 % HGB (4.0-6.0)
[2017-09-08 05:12] LABS: ALT/SGPT 16 U/l (0-40); Albumin 2.8 gm/dL (3.2-5.2); Albumin/Globulin Ratio 0.9 (1.0-2.3); Alkaline Phosphatase 73 U/L (39-117); Bilirubin,Direct < 0.2 mg/dL (0.0-0.3); Blood Urea Nitrogen 24 mg/dl (8-23); Gamma Glutamyl Transpeptidase 25 U/L (5-36); Magnesium 1.9 mg/dL (1.6-2.5); Uric Acid 8.5 mg/dL (2.5-8.0)
[2017-09-08] MEDS ORDERED: VANCOMYCIN PER PHARMACY IV SCH (07:30)
[2017-09-08] MEDS: INSULIN LISPRO 1 UNIT/0.01 ML UNIT SQ SCH ×4 (07:30→20:49)
[2017-09-08] MEDS ORDERED: NON FORMULARY MEDICATION 1 DOSE MISCELL (Omega-3/Dha/Epa/Fish Oil [Fish Oil 1,000 Mg Softg PO SCH (09:00)
[2017-09-08] MEDS ORDERED: FOLIC ACID PO SCH (09:00)
[2017-09-08] MEDS ORDERED: UBIDECARENONE 100 MG PO SCH (09:00)
[2017-09-08] MEDS ORDERED: CHOLECALCIFEROL PO SCH (09:00)
[2017-09-08] MEDS ORDERED: FLAXSEED OIL 1000 MG PO SCH (09:00)
[2017-09-08] MEDS ORDERED: [UNRECOGNIZED DRUG - OTHER] PO SCH (09:00)
[2017-09-08] MEDS ORDERED: MV FE MIN PO SCH (09:00)
[2017-09-08] MEDS ORDERED: MAGNESIUM OXIDE 500 MG PO SCH (09:00)
[2017-09-08] MEDS ORDERED: [UNRECOGNIZED DRUG - OTHER] PO SCH (09:00)
[2017-09-08] MEDS ORDERED: VIT K2 PO SCH (09:00)
--- NOTE | 2017-09-08 09:42 | XRay Report ---
CLINICAL INFORMATION: Fever COMPARISON: 10/13/2015 FINDINGS: Heart size, mediastinum and pulmonary vessels are normal. Minor left basilar atelectasis noted. No effusions. Moderate degenerative disease seen throughout the thoracic spine. Malunified old mid left clavicular fracture noted with minimal chronic wedging of all thoracic vertebral bodies - all stable IMPRESSION: Mild left basilar atelectasis Interpreted and Authenticated by: Spencer Roland 09/08/17
--- NOTE | 2017-09-08 10:07 | Cat Scan Report ---
CLINICAL INFORMATION: Fever and headache COMPARISON: 03/17/2017 TECHNIQUE: 2.5 mm helical slices were obtained in the skull base to vertex. Following reconstruction, axial reformatted images were reviewed at bone and parenchymal windows. The exam was performed using radiation dose optimization techniques including, but not limited to, automated exposure control, adjustment of the mA and/or kV according to patient size and use of iterative reconstruction technique. FINDINGS: The ventricles, sulci, fissures, and cisterns are normal in size and configuration. No extra-axial fluid collections are identified. A 5 mm dystrophic calcification in the subcortical white matter of the posterior right frontal lobe has been stable since 12/22/2016. There are no significant abnormalities in the cerebrum, brainstem or cerebellum. There is no evidence of hemorrhage, mass effect, or edema. Bone windows show no osseous abnormality. IMPRESSION: No acute disease - stable Interpreted and Authenticated by: Spencer Roland 09/08/17
--- NOTE | 2017-09-08 10:11 | XRay Report ---
CLINICAL INFORMATION: Fever COMPARISON: 09/07/2017 FINDINGS: Heart size, mediastinum and pulmonary vessels are normal. Minor bibasilar airspace disease, likely atelectasis, is unchanged IMPRESSION: No change in mild bibasilar airspace disease - likely atelectasis. No definite infiltrate Interpreted and Authenticated by: Spencer Roland 09/08/17
[2017-09-08] MEDS: Ubidecarenone [Coq-10] 100 mg Tab PO SCH (11:43)
[2017-09-08] MEDS: MULTIVIT,THER IRON,CA,FA & MIN 1 TABLET PO SCH (11:58)
[2017-09-08] MEDS: ACETAMINOPHEN 325 MG TABLET PO PRN ×2 (11:59→17:47)
[2017-09-08] MEDS: VITAMIN D3 5,000 UNIT CAPSULE PO SCH (11:59)
[2017-09-08] MEDS: MAGNESIUM OXIDE 400 MG TABLET PO SCH (11:59)
[2017-09-08] MEDS: HEPARIN 5,000 UNIT/ML VIAL SQ SCH ×2 (11:59→20:48)
[2017-09-08] MEDS: FISH OIL 1,000 MG CAPSULE PO SCH (12:00)
[2017-09-08] MEDS: VANCOMYCIN 1,500 MG in 0.9 % SODIUM CHLORIDE 500 ML IV SCH (16:00)
[2017-09-08] MEDS: cefTRIAXone 2 GM VIAL IV SCH (17:35)
[2017-09-08] MEDS ORDERED: Aspirin/Acetaminophen/Caffeine [Excedrin Migraine] Cap PO PRN (18:41)
[2017-09-08] MEDS ORDERED: GUAIFENESIN PO PRN (18:41)
[2017-09-08] MEDS ORDERED: [UNRECOGNIZED DRUG - OTHER] PO PRN (18:41)
[2017-09-08] MEDS ORDERED: INSULIN GLARGINE, HUMAN 1 UNIT/0.01 ML SQ SCH (21:00)
[2017-09-08] MEDS ORDERED: NON FORMULARY MEDICATION 1 DOSE MISCELL (Ranitidine Hcl [Zantac] 150 MG) PO SCH (21:00)
[2017-09-08] MEDS ORDERED: SIMETHICONE 80 MG TAB.CHEW CHEWED PRN (21:00)
[2017-09-08] MEDS ORDERED: PREGABALIN 50 MG CAPSULE PO SCH (21:00)
[2017-09-09] MEDS: ACETAMINOPHEN 325 MG TABLET PO PRN ×3 (03:08→19:20)
[2017-09-09] MEDS: ONDANSETRON 4 MG/2 ML VIAL IV PRN ×3 (03:51→21:46)
[2017-09-09 05:27] LABS: Basophils # (Auto) 0 K/mcL (0.0-0.3); Basophils % (Auto) 0.1 % (0.0-2.0); Eosinophils # (Auto) 0 K/mcL (0.0-0.7); Eosinophils % (Auto) 0.2 % (0.0-7.0); Granulocytes % (Auto) 79.5 % (38.0-78.0); Lymphocytes # (Auto) 0.5 K/mcL (1.5-4.8); Lymphocytes % (Auto) 12.1 % (15.5-49.0); Mean Cell Volume 89.4 fL (80.0-100.0); Mean Corpuscular HGB Conc 34.5 g/dL (31.0-36.0); Mean Corpuscular Hemoglobin 30.8 pg (26.0-34.0); Monocytes # (Auto) 0.4 K/mcL (0.1-0.9); Monocytes % (Auto) 8.1 % (1.0-12.0); Platelet Count 200 K/mcL (140-440); RBC 3.45 M/mcL (4.00-5.20); Red Cell Distribution Width 13.4 % (11.5-14.5)
[2017-09-09] MEDS: POTASSIUM CHLORIDE 20 MEQ in 0.45 % SODIUM CHLORIDE 1,000 ML IV SCH (05:52)
[2017-09-09 06:02] LABS: ALT/SGPT 28 U/l (0-40); Alkaline Phosphatase 84 U/L (39-117); Bilirubin,Direct < 0.2 mg/dL (0.0-0.3); Blood Urea Nitrogen 15 mg/dl (8-23); Gamma Glutamyl Transpeptidase 31 U/L (5-36); Magnesium 1.9 mg/dL (1.6-2.5); Uric Acid 7.2 mg/dL (2.5-8.0)
[2017-09-09] MEDS ORDERED: OMEPRAZOLE 20 MG CAPSULE PO SCH (07:30)
[2017-09-09] MEDS ORDERED: PROMETHAZINE 25 MG/ML VIAL IV PRN (08:57)
[2017-09-09] MEDS ORDERED: MAGNESIUM OXIDE 500 MG PO SCH (09:00)
[2017-09-09] MEDS ORDERED: FLAXSEED OIL 1000 MG PO SCH (09:00)
[2017-09-09] MEDS ORDERED: MULTIVITAMIN PO SCH (09:00)
[2017-09-09] MEDS ORDERED: NON FORMULARY MEDICATION 1 DOSE MISCELL (Omega-3/Dha/Epa/Fish Oil [Fish Oil 1,000 Mg Softg PO SCH (09:00)
[2017-09-09] MEDS ORDERED: UBIDECARENONE PO SCH (09:00)
[2017-09-09] MEDS ORDERED: [UNRECOGNIZED DRUG - OTHER] PO SCH (09:00)
[2017-09-09] MEDS ORDERED: POTASSIUM PHOSPHATE 40 MEQ in DEXTROSE 5% IN WATER 500 ML IV ONE (09:00)
[2017-09-09] MEDS ORDERED: VIT E ACETATE PO SCH (09:00)
[2017-09-09] MEDS ORDERED: VITAMIN D3 5,000 UNIT CAPSULE PO SCH (09:00)
--- NOTE | 2017-09-09 09:15 | XRay Report ---
CLINICAL INFORMATION: Fever COMPARISON: Chest x-ray from 05/28/2015 09/08/2017 FINDINGS: The cardiomediastinal silhouette and pulmonary vessels are normal. Mild bibasilar airspace disease has progressed. No effusions IMPRESSION: Slight progression of mild bibasilar airspace disease - more likely atelectasis than developing infiltrate Interpreted and Authenticated by: Spencer Roland 09/09/17
[2017-09-09] MEDS: INSULIN LISPRO 1 UNIT/0.01 ML UNIT SQ SCH ×4 (09:33→21:01)
[2017-09-09] MEDS ORDERED: FLU VACC QS2017-18 36MOS UP/PF 60 MCG/0.5 ML SYRINGE IM ONE (10:00)
[2017-09-09] MEDS: ASPIRIN 81 MG TAB.CHEW PO SCH (10:47)
[2017-09-09] MEDS: FISH OIL 1,000 MG CAPSULE PO SCH (10:47)
[2017-09-09] MEDS: PREGABALIN 25 MG CAPSULE PO SCH ×3 (10:47→21:07)
[2017-09-09] MEDS: CLOPIDOGREL 75 MG TABLET PO SCH (10:47)
[2017-09-09] MEDS: POTASSIUM CHLORIDE 20 MEQ TABLET PO SCH (10:48)
[2017-09-09] MEDS: FAMOTIDINE 20 MG TABLET PO SCH (10:48)
[2017-09-09] MEDS: MULTIVIT,THER IRON,CA,FA & MIN 1 TABLET PO SCH (10:52)
[2017-09-09] MEDS: Ubidecarenone [Coq-10] 100 mg Tab PO SCH (11:09)
[2017-09-09] MEDS: VITAMIN D3 5,000 UNIT CAPSULE PO SCH (11:09)
[2017-09-09] MEDS: MAGNESIUM OXIDE 400 MG TABLET PO SCH (11:09)
[2017-09-09] MEDS: HEPARIN 5,000 UNIT/ML VIAL SQ SCH ×2 (11:09→21:02)
[2017-09-09] MEDS: VANCOMYCIN 1,500 MG in 0.9 % SODIUM CHLORIDE 500 ML IV SCH ×2 (13:55→21:02)
[2017-09-09] MEDS ORDERED: PATIENTS OWN MEDICATION 1 DOSE MISCELL PO PRN (13:57)
[2017-09-09] MEDS: cefTRIAXone 2 GM VIAL IV SCH (16:59)
--- NOTE | 2017-09-09 20:17 | Internal Med Progress Note ---
Medical - PN: Subj Patient information: Note initiated : 09/09/17 at 8:14 pm Service Date, if different from initiated Date: [] Patient: Shawanda Healy 67 y/o F admitted on 09/08/17 for Dizziness/Fever of Unknown Origin, Anemia. Chief Complaint: [] Interval history: History of present illness: Ms. Healy is a 67 year old female with a history of fibromyalgia, psoriasis, TIA , irritable bowel syndrome who has been struggling with fatigue and leg pain for about 3 years since a fall. She now has chronic lymphedema of her left greater than right lower leg. She was in her usual state of health until 3 days prior to admission. She said she had brought her here to the hospital for a GI evaluation, and developed sudden onset of chills. By the time she got home she was having shaking chills, and collapsed when getting out of her car. Her had to call the paster hat lining to help get her back into her home. The next day her was able to get her up to use a walker to get to and from the bathroom, but she started to run a high fever. Late last night the paster hat lining were called back because she was so weak, and she says the paster hat lining reported her temperature at 104.6. She says she has had a bad bitemporal headache for the last few days, but denies significant neck stiffness, although her neck is sore this morning from "lying in bed too long". She does note that her head feels a little worse if she sits up. ER evaluation did show a temperature of 101.2. Screens for influenza were negative. Chest x-ray was unrevealing. Urinalysis was mildly abnormal. Anesthesia was called to do an LP, but they declined as the patient is on Plavix and aspirin. She denies dizziness, new eye or ear symptoms, significant sinus symptoms, sore throat or cough, swollen glands, chest pain or palpitations , shortness of breath or cough, abdominal pain, nausea or vomiting. She did have one episode of very loose stools yesterday, but no bowel movement since then. She denies dysuria. She says her left lower extremity lymphedema seems a little worse the last couple of days, but not significantly so. Her only new medication was Celebrex, which was started about 3 weeks ago. Nov 27: Feeling better today. MARSH has improved and is only on the R side of her head. Fever curve trending down to 101.2 today. She was able to sit up in the chair for a short time today. Cultures still negative. PCT 3.35; ESR 67. Multiple intolerances to medications. ROS: mild nausea Gen: Obese, fatigued, nad CV: RRR. No m/r/g Resp: CTAB Abd: soft/nd/nt. +T Ext: No c/c/e NRO: A/O x 3. No focal deficits Skin: warm/dry. No cellulitis - Constitutional Vitals: Vital Signs Temp Pulse Resp BP Pulse Ox 98.2 F 100 H 18 165/66 95 09/09/17 15:33 09/09/17 08:00 09/09/17 15:33 09/09/17 15:33 09/09/17 15:33 Period Temp Pulse Resp BP Sys/Tucker Pulse Ox Last 24 Hr 98.2 F-101.2 F 82-107 12-20 160-186/64-94 94-95 Intake and Output 09/09/17 09/09/17 09/09/17 05:59 13:59 21:59 Intake Total 1310 / 1310 80 / 80 360 / 360 Output Total 1500 / 1500 1200 / 1200 Balance -190 / -190 80 / 80 -840 / -840 Weight 284 lb 5 oz Patient Weight 09/10/17 05:59 Weight 284 lb 5 oz Intake & Output: Intake & Output 09/09/17 09/09/17 09/09/17 05:59 13:59 21:59 Intake Total 1310 / 1310 80 / 80 360 / 360 Output Total 1500 / 1500 1200 / 1200 Balance -190 / -190 80 / 80 -840 / -840 Weight 284 lb 5 oz Intake: IV 1010 / 1010 80 / 80 Potassium Chloride 20 Meq In 1010 / 1010 80 / 80 Sodium Chloride 0.45% 1,000 ml @ 120 mls/hr IV .[id number] [facility] Rx# :[id number] Oral 300 / 300 360 / 360 Output: Urine Catheter Amount 1500 / 1500 1200 / 1200 Other: # Bowel Movements 0 Medical - PN: Obj Da - Labs CBC & Chem 7: 09/09/17 03:42 09/09/17 03:42 Labs: Abnormal Lab Results 09/09/17 09/09/17 09/08/17 03:42 03:42 03:47 WBC 4.3 L RBC 3.45 L Hgb 10.6 L Hct 30.8 L Gran % 79.5 H Lymph % (Auto) 12.1 L Lymph # (Auto) 0.5 L ESR Carbon Dioxide 21 L BUN Creatinine Glucose 125 H Hemoglobin A1c Uric Acid Calcium 8.0 L Phosphorus 1.7 L Lactate Dehydrogenase 309 H Total Protein Albumin 3.0 L Albumin/Globulin Ratio Urine Ketones 5/tr A Urine Occult Blood 0.03 A Urine Nitrate Pos A Urine WBC 5 H Amorphous Crystals Few A Urine Bacteria Few A 09/08/17 09/08/17 09/08/17 03:44 03:44 03:44 WBC RBC 3.21 L Hgb 9.9 L Hct 28.7 L Gran % Lymph % (Auto) 13.7 L Lymph # (Auto) 0.7 L ESR Carbon Dioxide BUN 24 H Creatinine 1.2 H Glucose 126 H Hemoglobin A1c 7.3 H Uric Acid 8.5 H Calcium 7.8 L Phosphorus Lactate Dehydrogenase 270 H Total Protein 5.8 L Albumin 2.8 L Albumin/Globulin Ratio 0.9 L Urine Ketones Urine Occult Blood Urine Nitrate Urine WBC Amorphous Crystals Urine Bacteria 09/07/17 09/07/17 09/07/17 22:37 22:37 22:27 WBC RBC 3.60 L Hgb 10.6 L Hct 31.5 L Gran % 83.5 H Lymph % (Auto) 6.3 L Lymph # (Auto) 0.4 L ESR 67 H Carbon Dioxide BUN 29 H Creatinine 1.4 H Glucose 134 H Hemoglobin A1c Uric Acid Calcium 8.5 L Phosphorus Lactate Dehydrogenase Total Protein Albumin Albumin/Globulin Ratio Urine Ketones Urine Occult Blood Urine Nitrate Urine WBC Amorphous Crystals Urine Bacteria Meds: Medications Acetaminophen (Tylenol) 650 mg PO Q4HP PRN PRN Reason: PAIN/FEVER > 101 Last Admin: 09/09/17 19:20 Dose: 650 mg Albuterol Sulfate (Ventolin) 2.5 mg NEB Q4HRT PRN PRN Reason: Shortness Of Breath Or Wheezing Last Admin: 09/09/17 11:28 Dose: 2.5 mg Aspirin (Aspirin) 81 mg PO DAILY ELO Last Admin: 09/09/17 10:47 Dose: 81 mg Ceftriaxone Sodium (Rocephin) 2 gm IV Q24H [facility] Last Admin: 09/09/17 16:59 Dose: 2 gm Clopidogrel Bisulfate (Plavix) 75 mg PO DAILY [facility] Last Admin: 09/09/17 10:47 Dose: 75 mg Dextrose (Dextrose 50%) 0 ml IV UD PRN PRN Reason: Hypoglycemia Diagnostic Test (Pha) (Accu-Chek) 1 each FS ACHS [facility] Last Admin: 09/09/17 17:02 Dose: Not Given Famotidine (Pepcid) 40 mg PO DAILY [facility] Last Admin: 09/09/17 10:48 Dose: 40 mg Fish Oil (Fish Oil) 2,000 mg PO DAILY [facility] Last Admin: 09/09/17 10:47 Dose: 2,000 mg Glucose (Insta-Glucose) 15 gm PO PRN PRN PRN Reason: Hypoglycemia Heparin Sodium (Porcine) (Heparin) 5,000 unit SQ Q12 [facility] Last Admin: 09/09/17 11:09 Dose: 5,000 unit Vancomycin HCl 1,500 mg/ (Sodium Chloride) 500 mls @ 333.3 mls/hr IV Q12H [facility] Last Admin: 09/09/17 13:55 Dose: 150 mls/hr Insulin Glargine (Lantus) 50 unit SQ HS [facility] Insulin Human Lispro (Humalog) 0 unit SQ [facility] PRN Reason: Protocol Last Admin: 09/09/17 17:02 Dose: Not Given Magnesium Hydroxide (Milk Of Magnesia) 30 ml PO DAILYP PRN PRN Reason: Constipation Magnesium Oxide (Magnesium Oxide) 400 mg PO DAILY [facility] Last Admin: 09/09/17 11:09 Dose: 400 mg Ondansetron HCl (Zofran) 4 mg IV Q4HP PRN PRN Reason: Nausea And Vomiting Last Admin: 09/09/17 09:33 Dose: 4 mg Flaxseed Oil 1,000 (Mg Cap) 1 dose PO DAILY [facility] Last Admin: 09/09/17 11:09 Dose: Not Given Ubidecarenone [Coq- (10] 100 Mg Tab) 1 dose PO DAILY [facility] Last Admin: 09/09/17 11:09 Dose: Not Given Aspirin/Acetaminophen/Caffeine [Excedrin Migraine] Cap 2 dose PO TIDP PRN PRN Reason: Migraine Headache Guaifenesin/Ephedrine Hcl [ Primatene Asthma] Tab 1 dose PO TIDP PRN PRN Reason: Wheezing Potassium Chloride (Kdur) 20 meq PO QAMCC [facility] Last Admin: 09/09/17 10:48 Dose: 20 meq Pregabalin (Lyrica) 50 mg PO TID [facility] Last Admin: 09/09/17 15:40 Dose: 50 mg Promethazine HCl (Phenergan) 12.5 mg IV Q4HP PRN PRN Reason: Nausea And Vomiting Simethicone (Mylicon) 80 mg CHEWED [facility] PRN PRN Reason: GAS Vancomycin HCl (Vancomycin Per Pharmacy) 1 order IV UD [facility] Vitamin D (Vitamin D3) 5,000 unit PO DAILY [facility] Last Admin: 09/09/17 11:09 Dose: 5,000 unit Medical - PN: A/P - Time Spent With Patient Total time spent is greater than 50% in coordination of care (as documented) at patient's floor/unit and/or counseling patient: 25 - 35 minutes - Narrative A/P Narrative: 1. Infectious disease, fever of uncertain origin. Patient meets criteria for SIRS syndrome. The source of her sudden onset high fever is unclear. Blood and urine cultures are pending. -Monitor on telemetry. -Patient is covered with Rocephin and vancomycin, which should cover common infections, meningitis, MRSA. Continue for now. Continue Tylenol for symptomatic treatment as well. Trend PCT. Her ESR is elevated but she does not seem to have s/s of a deep infection like osteomyelitis -Ideally, we would also do a lumbar puncture. Anesthesia is reluctant to do this until the patient has been off of Plavix for at least 7 days. By that time , even if she had meningitis, CSF may have cleared. -Patient does have chronic lymphedema, but does not have obvious signs of lower extremity cellulitis at this time. 2. CODE STATUS: Patient prefers to remain a full code. Her would act as her POA. She would not want long-term life support. 3. DVT prophylaxis: heparin 4. Type 2 diabetes. Hemoglobin A1c is 7.3%, which indicates reasonable control. Continue Lantus plus sliding scale. Accu-Cheks before meals and at bedtime. Hold Jardiance, regarding increased risk of UTI, yeast infections. #5. Rheumatologic. History of psoriasis, so she may be somewhat immunocompromised. However, she is not currently taking medications for this. She was started on Celebrex recently for joint pain, and was to have follow-up with a new customer order clerk. -Also history of fibromyalgia. DC Celebrex with slight elevation of her creatinine. 6. GI. Patient presents with anemia which is worse than her baseline. She certainly could have a low-grade GI bleed due to the Celebrex. Hold Celebrex. Monitor H and H. -Reported history of GERD. Cont pepcid. -Past history of hepatitis B, in remission. -Reported history of irritable bowel syndrome. Patient had one episode of diarrhea, so C. difficile screen was ordered. However, she has not had further stools since her arrival-->will DC C diff. 7. Renal. Patient presents with acute worsening of renal function, having bumped her creatinine from 1.1 up to 1.4. Resolved with hydration. #8. Generalized weakness, chronic pain, and what sounds like general decline in ability to perform ADLs over the last few years. -Physical therapy and occupational therapy evaluations. Case management referral to look into other services the patient might be eligible for. Medical - PN: Qual - VTE Deep Vein Thrombosis/Pulmonary Embolism Present on Admission: No
[2017-09-09] MEDS ORDERED: INSULIN GLARGINE, HUMAN 1 UNIT/0.01 ML SQ SCH (21:00)
[2017-09-10] MEDS: ACETAMINOPHEN 325 MG TABLET PO PRN ×3 (05:38→17:54)
[2017-09-10 07:07] LABS: ALT/SGPT 24 U/l (0-40); Alkaline Phosphatase 74 U/L (39-117); Bilirubin,Direct < 0.2 mg/dL (0.0-0.3); Blood Urea Nitrogen 14 mg/dl (8-23); Gamma Glutamyl Transpeptidase 29 U/L (5-36); Magnesium 1.9 mg/dL (1.6-2.5); Uric Acid 6.2 mg/dL (2.5-8.0)
[2017-09-10 07:20] LABS: Basophils # (Auto) 0 K/mcL (0.0-0.3); Basophils % (Auto) 0.3 % (0.0-2.0); Eosinophils # (Auto) 0 K/mcL (0.0-0.7); Eosinophils % (Auto) 0.6 % (0.0-7.0); Granulocytes % (Auto) 75.9 % (38.0-78.0); Lymphocytes # (Auto) 0.7 K/mcL (1.5-4.8); Lymphocytes % (Auto) 11.7 % (15.5-49.0); Mean Cell Volume 88.5 fL (80.0-100.0); Mean Corpuscular HGB Conc 34.7 g/dL (31.0-36.0); Mean Corpuscular Hemoglobin 30.7 pg (26.0-34.0); Monocytes # (Auto) 0.7 K/mcL (0.1-0.9); Monocytes % (Auto) 11.5 % (1.0-12.0); Platelet Count 203 K/mcL (140-440); RBC 3.22 M/mcL (4.00-5.20); Red Cell Distribution Width 13.6 % (11.5-14.5)
[2017-09-10] MEDS: INSULIN LISPRO 1 UNIT/0.01 ML UNIT SQ SCH ×4 (08:33→21:16)
[2017-09-10] MEDS: Ubidecarenone [Coq-10] 100 mg Tab PO SCH (08:35)
[2017-09-10] MEDS: FAMOTIDINE 20 MG TABLET PO SCH (08:40)
[2017-09-10] MEDS: CLOPIDOGREL 75 MG TABLET PO SCH (08:40)
[2017-09-10] MEDS: cefTRIAXone 2 GM VIAL IV SCH (08:40)
[2017-09-10] MEDS: HEPARIN 5,000 UNIT/ML VIAL SQ SCH ×2 (08:40→21:17)
[2017-09-10] MEDS: ASPIRIN 81 MG TAB.CHEW PO SCH (08:41)
[2017-09-10] MEDS: POTASSIUM CHLORIDE 20 MEQ TABLET PO SCH (08:41)
[2017-09-10] MEDS: VITAMIN D3 5,000 UNIT CAPSULE PO SCH (08:41)
[2017-09-10] MEDS: FISH OIL 1,000 MG CAPSULE PO SCH (08:41)
[2017-09-10] MEDS: MAGNESIUM OXIDE 400 MG TABLET PO SCH (08:41)
[2017-09-10] MEDS: PREGABALIN 25 MG CAPSULE PO SCH ×3 (08:41→22:14)
[2017-09-10] MEDS: VANCOMYCIN 1,500 MG in 0.9 % SODIUM CHLORIDE 500 ML IV SCH (10:18)
--- NOTE | 2017-09-10 10:20 | XRay Report ---
CLINICAL INFORMATION: Fever COMPARISON: 09/09/2017 FINDINGS: Moderate cardiomegaly is unchanged. Mediastinum and pulmonary vessels are normal. Bibasilar airspace disease has progressed - this may indicate small patchy infiltrates. Small left pleural effusion noted IMPRESSION: Progression in small patchy bibasilar infiltrates with small left pleural effusion Interpreted and Authenticated by: Spencer Roland 09/10/17
--- NOTE | 2017-09-10 11:26 | Internal Med Progress Note ---
Medical - PN: Subj Patient information: Note initiated : 09/10/17 at 11:19 am Service Date, if different from initiated Date: [] Patient: Shawanda Healy 67 y/o F admitted on 09/08/17 for Dizziness/Fever of Unknown Origin, Anemia. Chief Complaint: [] Interval history: History of present illness: Ms. Healy is a 67 year old female with a history of fibromyalgia, psoriasis, TIA , irritable bowel syndrome who has been struggling with fatigue and leg pain for about 3 years since a fall. She now has chronic lymphedema of her left greater than right lower leg. She was in her usual state of health until 3 days prior to admission. She said she had brought her here to the hospital for a GI evaluation, and developed sudden onset of chills. By the time she got home she was having shaking chills, and collapsed when getting out of her car. Her had to call the endless track vehicle mechanic to help get her back into her home. The next day her was able to get her up to use a walker to get to and from the bathroom, but she started to run a high fever. Late last night the endless track vehicle mechanic were called back because she was so weak, and she says the endless track vehicle mechanic reported her temperature at 104.6. She says she has had a bad bitemporal headache for the last few days, but denies significant neck stiffness, although her neck is sore this morning from "lying in bed too long". She does note that her head feels a little worse if she sits up. ER evaluation did show a temperature of 101.2. Screens for influenza were negative. Chest x-ray was unrevealing. Urinalysis was mildly abnormal. Anesthesia was called to do an LP, but they declined as the patient is on Plavix and aspirin. She denies dizziness, new eye or ear symptoms, significant sinus symptoms, sore throat or cough, swollen glands, chest pain or palpitations , shortness of breath or cough, abdominal pain, nausea or vomiting. She did have one episode of very loose stools yesterday, but no bowel movement since then. She denies dysuria. She says her left lower extremity lymphedema seems a little worse the last couple of days, but not significantly so. Her only new medication was Celebrex, which was started about 3 weeks ago. Nov 27: Feeling better today. MARSH has improved and is only on the R side of her head. Fever curve trending down to 101.2 today. She was able to sit up in the chair for a short time today. Cultures still negative. PCT 3.35; ESR 67. Multiple intolerances to medications. Sep 10: Urine cx growing <10K of GNR--no ID on final cx. Urine in [place] has been cloudy and pt has some pain with catheter but denies any dysuria prior to admission like prior UTIs. She still is quite weak and does not think she can walk all the way to the bathroom. Afebrile since yesterday. CXR shows progression in bilateral infiltrates with small L effusion. ROS: no fever or marsh Gen: Obese, nad. Her adult children are at her bedside. CV: RRR. No m/r/g Resp: CTAB Abd: soft/nd/nt. +T Ext: No c/c/e NRO: A/O x 3. No focal deficits Skin: warm/dry. No cellulitis - Constitutional Vitals: Vital Signs Temp Pulse Resp BP Pulse Ox 98.9 F 72 16 118/57 95 09/10/17 08:00 09/10/17 03:57 09/10/17 08:00 09/10/17 08:00 09/10/17 08:00 Period Temp Pulse Resp BP Sys/Tucker Pulse Ox Last 24 Hr 98.2 F-99.8 F 72-78 12-18 118-178/57-82 94-96 Intake and Output 09/09/17 09/10/17 09/10/17 21:59 05:59 13:59 Intake Total 860 / 860 800 / 265 981.1464 / 509.0909 Output Total 1200 / 1200 750 / 750 450 / 450 Balance -340 / -340 50 / 50 59.0909 / 59.0909 Weight 386 lb Intake & Output: Intake & Output 09/09/17 09/10/17 09/10/17 21:59 05:59 13:59 Intake Total 860 / 860 800 / 001 704.6206 / 509.0909 Output Total 1200 / 1200 750 / 750 450 / 450 Balance -340 / -340 50 / 50 59.0909 / 59.0909 Weight 386 lb Intake: IV 500 / 500 500 / 935 255.4159 / 509.0909 Vancomycin 1,500 mg In Sodium 500 / 500 500 / 500 Chloride 0.9% 500 ml @ 333.3 mls/hr IV Q12H [facility] Rx#: [id number] Oral 360 / 360 300 / 300 Output: Urine Catheter Amount 1200 / 1200 750 / 750 450 / 450 Other: # Bowel Movements 0 Medical - PN: Obj Da - Labs CBC & Chem 7: 09/10/17 06:15 09/10/17 03:50 Labs: Abnormal Lab Results 09/10/17 09/10/17 09/09/17 06:15 03:50 03:42 WBC RBC 3.22 L Hgb 9.9 L Hct 28.5 L Gran % Lymph % (Auto) 11.7 L Lymph # (Auto) 0.7 L ESR Carbon Dioxide 21 L 21 L BUN Creatinine Glucose 125 H Hemoglobin A1c Uric Acid Calcium 8.0 L 8.0 L Phosphorus 1.7 L Lactate Dehydrogenase 291 H 309 H Total Protein Albumin 3.0 L 3.0 L Albumin/Globulin Ratio Urine Ketones Urine Occult Blood Urine Nitrate Urine WBC Amorphous Crystals Urine Bacteria 09/09/17 09/08/17 09/08/17 03:42 03:47 03:44 WBC 4.3 L RBC 3.45 L Hgb 10.6 L Hct 30.8 L Gran % 79.5 H Lymph % (Auto) 12.1 L Lymph # (Auto) 0.5 L ESR Carbon Dioxide BUN Creatinine Glucose Hemoglobin A1c 7.3 H Uric Acid Calcium Phosphorus Lactate Dehydrogenase Total Protein Albumin Albumin/Globulin Ratio Urine Ketones 5/tr A Urine Occult Blood 0.03 A Urine Nitrate Pos A Urine WBC 5 H Amorphous Crystals Few A Urine Bacteria Few A 09/08/17 09/08/17 09/07/17 03:44 03:44 22:37 WBC RBC 3.21 L Hgb 9.9 L Hct 28.7 L Gran % Lymph % (Auto) 13.7 L Lymph # (Auto) 0.7 L ESR Carbon Dioxide BUN 24 H 29 H Creatinine 1.2 H 1.4 H Glucose 126 H 134 H Hemoglobin A1c Uric Acid 8.5 H Calcium 7.8 L 8.5 L Phosphorus Lactate Dehydrogenase 270 H Total Protein 5.8 L Albumin 2.8 L Albumin/Globulin Ratio 0.9 L Urine Ketones Urine Occult Blood Urine Nitrate Urine WBC Amorphous Crystals Urine Bacteria 09/07/17 09/07/17 22:37 22:27 WBC RBC 3.60 L Hgb 10.6 L Hct 31.5 L Gran % 83.5 H Lymph % (Auto) 6.3 L Lymph # (Auto) 0.4 L ESR 67 H Carbon Dioxide BUN Creatinine Glucose Hemoglobin A1c Uric Acid Calcium Phosphorus Lactate Dehydrogenase Total Protein Albumin Albumin/Globulin Ratio Urine Ketones Urine Occult Blood Urine Nitrate Urine WBC Amorphous Crystals Urine Bacteria Meds: Medications Acetaminophen (Tylenol) 650 mg PO Q4HP PRN PRN Reason: PAIN/FEVER > 101 Last Admin: 09/10/17 05:38 Dose: 650 mg Albuterol Sulfate (Ventolin) 2.5 mg NEB Q4HRT PRN PRN Reason: Shortness Of Breath Or Wheezing Last Admin: 09/09/17 11:28 Dose: 2.5 mg Aspirin (Aspirin) 81 mg PO DAILY [facility] Last Admin: 09/10/17 08:41 Dose: 81 mg Ceftriaxone Sodium (Rocephin) 2 gm IV Q24H [facility] Last Admin: 09/10/17 08:40 Dose: 2 gm Clopidogrel Bisulfate (Plavix) 75 mg PO DAILY [facility] Last Admin: 09/10/17 08:40 Dose: 75 mg Dextrose (Dextrose 50%) 0 ml IV UD PRN PRN Reason: Hypoglycemia Diagnostic Test (Pha) (Accu-Chek) 1 each FS ACHS [facility] Last Admin: 09/10/17 08:33 Dose: 1 each Famotidine (Pepcid) 40 mg PO DAILY [facility] Last Admin: 09/10/17 08:40 Dose: 40 mg Fish Oil (Fish Oil) 2,000 mg PO DAILY [facility] Last Admin: 09/10/17 08:41 Dose: 2,000 mg Glucose (Insta-Glucose) 15 gm PO PRN PRN PRN Reason: Hypoglycemia Heparin Sodium (Porcine) (Heparin) 5,000 unit SQ Q12 [facility] Last Admin: 09/10/17 08:40 Dose: 5,000 unit Vancomycin HCl 1,500 mg/ (Sodium Chloride) 500 mls @ 333.3 mls/hr IV DAILY@ 1600 [facility] Insulin Glargine (Lantus) 42 unit SQ HS [facility] Insulin Human Lispro (Humalog) 0 unit SQ ACHS [facility] PRN Reason: Protocol Last Admin: 09/10/17 08:33 Dose: Not Given Magnesium Hydroxide (Milk Of Magnesia) 30 ml PO DAILYP PRN PRN Reason: Constipation Magnesium Oxide (Magnesium Oxide) 400 mg PO DAILY [facility] Last Admin: 09/10/17 08:41 Dose: 400 mg Ondansetron HCl (Zofran) 4 mg IV Q4HP PRN PRN Reason: Nausea And Vomiting Last Admin: 09/09/17 21:46 Dose: 4 mg Flaxseed Oil 1,000 (Mg Cap) 1 dose PO DAILY [facility] Last Admin: 09/10/17 08:34 Dose: Not Given Ubidecarenone [Coq- (10] 100 Mg Tab) 1 dose PO DAILY [facility] Last Admin: 09/10/17 08:35 Dose: Not Given Aspirin/Acetaminophen/Caffeine [Excedrin Migraine] Cap 2 dose PO TIDP PRN PRN Reason: Migraine Headache Guaifenesin/Ephedrine Hcl [ Primatene Asthma] Tab 1 dose PO TIDP PRN PRN Reason: Wheezing Potassium Chloride (Kdur) 20 meq PO QAMCC [facility] Last Admin: 09/10/17 08:41 Dose: 20 meq Pregabalin (Lyrica) 50 mg PO TID [facility] Last Admin: 09/10/17 08:41 Dose: 50 mg Promethazine HCl (Phenergan) 12.5 mg IV Q4HP PRN PRN Reason: Nausea And Vomiting Simethicone (Mylicon) 80 mg CHEWED PCHS PRN PRN Reason: GAS Vancomycin HCl (Vancomycin Per Pharmacy) 1 order IV [facility] [place] Vitamin D (Vitamin D3) 5,000 unit PO DAILY [facility] Last Admin: 09/10/17 08:41 Dose: 5,000 unit Medical - PN: A/P - Time Spent With Patient Total time spent is greater than 50% in coordination of care (as documented) at patient's floor/unit and/or counseling patient: 25 - 35 minutes - Narrative A/P Narrative: 1. Infectious disease, fever of uncertain origin. Patient meets criteria for SIRS syndrome. The source of her sudden onset high fever is unclear but may have PNA on CXR although not hypoxic and no cough. Urine +GNR, but low count. -Monitor on telemetry. -Patient is covered with Rocephin and vancomycin, which should cover common infections, meningitis, MRSA. Continue. Continue Tylenol for symptomatic treatment as well. PCT trending down. Her ESR is elevated but she does not seem to have s/s of a deep infection like osteomyelitis. Would discharge on empiric Bactrim and Levaquin x 7 days. -Ideally, we would also do a lumbar puncture. Anesthesia is reluctant to do this until the patient has been off of Plavix for at least 7 days. By that time , even if she had meningitis, CSF may have cleared. -Patient does have chronic lymphedema, but does not have obvious signs of lower extremity cellulitis at this time. 2. CODE STATUS: Patient prefers to remain a full code. Her would act as her POA. She would not want long-term life support. 3. DVT prophylaxis: heparin 4. Type 2 diabetes. Hemoglobin A1c is 7.3%, which indicates reasonable control. Mild hypoglycemia 09/10. Decrease Lantus to 42 units HS. Cont SSI. Accu-Cheks before meals and at bedtime. Hold Jardiance, regarding increased risk of UTI, yeast infections. #5. Rheumatologic. History of psoriasis, so she may be somewhat immunocompromised. However, she is not currently taking medications for this. She was started on Celebrex recently for joint pain, and was to have follow-up with a new marine electrician apprentice. -Also history of fibromyalgia. DC'd Celebrex with slight elevation of her creatinine. 6. GI. Patient presents with anemia which is worse than her baseline. She certainly could have a low-grade GI bleed due to the Celebrex. Hold Celebrex. Monitor H and H--stable thus far -Reported history of GERD. Cont pepcid. -Past history of hepatitis B, in remission. -Reported history of irritable bowel syndrome. Patient had one episode of diarrhea, so C. difficile screen was ordered. However, she has not had further stools since her arrival-->will DC C diff. 7. Renal. Patient presents with acute worsening of renal function, having bumped her creatinine from 1.1 up to 1.4. Resolved with hydration. #8. Generalized weakness, chronic pain, and what sounds like general decline in ability to perform ADLs over the last few years. -Physical therapy and occupational therapy evaluations. Case management referral to look into other services the patient might be eligible for; does not want to go to SNF. Dispo: Home with probably services in 1-2 days depending on mobility. Medical - PN: Qual - VTE Deep Vein Thrombosis/Pulmonary Embolism Present on Admission: No
[2017-09-10] MEDS ORDERED: VANCOMYCIN 1,500 MG in 0.9 % SODIUM CHLORIDE 500 ML IV SCH (16:00)
[2017-09-10] MEDS ORDERED: INSULIN GLARGINE, HUMAN 1 UNIT/0.01 ML SQ SCH (21:00)
[2017-09-11 05:36] LABS: Basophils # (Auto) 0 K/mcL (0.0-0.3); Basophils % (Auto) 0.4 % (0.0-2.0); Eosinophils # (Auto) 0.1 K/mcL (0.0-0.7); Eosinophils % (Auto) 1.6 % (0.0-7.0); Granulocytes % (Auto) 74.7 % (38.0-78.0); Lymphocytes % (Auto) 14.4 % (15.5-49.0); Mean Cell Volume 89.8 fL (80.0-100.0); Mean Corpuscular HGB Conc 33.9 g/dL (31.0-36.0); Mean Corpuscular Hemoglobin 30.4 pg (26.0-34.0); Monocytes # (Auto) 0.6 K/mcL (0.1-0.9); Monocytes % (Auto) 8.9 % (1.0-12.0); Platelet Count 219 K/mcL (140-440); RBC 3.17 M/mcL (4.00-5.20); Red Cell Distribution Width 13.4 % (11.5-14.5)
[2017-09-11] MEDS: ACETAMINOPHEN 325 MG TABLET PO PRN (05:44)
[2017-09-11 05:53] LABS: Blood Urea Nitrogen 20 mg/dl (8-23)
[2017-09-11] MEDS ORDERED: PHENAZOPYRIDINE 200 MG TABLET PO ONE (07:33)
[2017-09-11] MEDS: INSULIN LISPRO 1 UNIT/0.01 ML UNIT SQ SCH ×2 (08:26→13:00)
[2017-09-11] MEDS: POTASSIUM CHLORIDE 20 MEQ TABLET PO SCH (08:30)
[2017-09-11] MEDS: MAGNESIUM OXIDE 400 MG TABLET PO SCH (08:30)
[2017-09-11] MEDS: HEPARIN 5,000 UNIT/ML VIAL SQ SCH (08:30)
[2017-09-11] MEDS: ASPIRIN 81 MG TAB.CHEW PO SCH (08:31)
[2017-09-11] MEDS: FAMOTIDINE 20 MG TABLET PO SCH (08:31)
[2017-09-11] MEDS: CLOPIDOGREL 75 MG TABLET PO SCH (08:31)
[2017-09-11] MEDS: Ubidecarenone [Coq-10] 100 mg Tab PO SCH (08:32)
[2017-09-11] MEDS: PREGABALIN 25 MG CAPSULE PO SCH (09:03)
[2017-09-11] MEDS: cefTRIAXone 2 GM VIAL IV SCH (09:03)
[2017-09-11] MEDS: FISH OIL 1,000 MG CAPSULE PO SCH (09:03)
[2017-09-11] MEDS: VITAMIN D3 5,000 UNIT CAPSULE PO SCH (09:04)
--- NOTE | 2017-09-11 10:45 | Discharge Summary ---
Medical - DS: Prov Patient information: Note initiated : 09/11/17 at 10:44 am Service Date, if different from initiated Date: [] Patient: Shawanda Healy 67 y/o F admitted on 09/08/17 for Dizziness/Fever of Unknown Origin, Anemia. Chief Complaint: [] Date of admission: 09/08/17 02:24 Discharge date: 09/11/17 Primary care physician: Melody Galeas DO Admitting clinician: Kari Moody Attending physician on discharge: Kari Moody Medical - DS: Meds - Discharge Medications Prescriptions: Acetaminophen [Tylenol Arthritis] 650 mg PO Q8H #90 tablet.er Sulfamethoxazole/Trimethoprim [Bactrim Ds] 1 tab PO BID #14 tab Active and Home Medications: Discharge medications: Discontinue celecoxib/Celebrex, to high risk medication for you. Discontinue Primatene ephedrine tablets. Hold HCTZ, regarding dehydration (I had planned on clindamycin, but the patient later informed that she was allergic to this. ) Bactrim DS, 1 p.o. twice daily. *Is a good idea to add probiotics to your diet for the next 10-14 days. *Decrease insulin glargine (Lantus) from 65 down to 82 units at bedtime. Continue insulin sliding scale with meals. *Please buy Tylenol arthritis (extended release) and take 650 mg 3 times a day for pain, instead of Celebrex. Albuterol inhaler as needed. Aspirin 81 mg daily Plavix 75 mg daily Pepcid 40 mg daily Flaxseed oil 1000 mg daily Magnesium oxide 500 mg daily Multivitamin 1 daily Fish oil 1 daily Potassium 20 mEq daily Lyrica 50 mg 3 times daily *Ranitidine or Zantac is on your list, but you are also taking Pepcid, and I would choose one or the other. Simethicone 250 mg 3 times daily Coenzyme Q 10 100 mg daily Vitamin D 5000 units daily PreviousHome Medications Albuterol Sulfate [Ventolin] 2 puff INH Q4-6HP PRN 09/08/17 [History Confirmed 09/08/17 Last Taken Unknown] Aspirin [Emeli Chewable Aspirin] 81 mg PO DAILY 09/08/17 [History Confirmed Last Taken Unknown] Aspirin/Acetaminophen/Caffeine [Excedrin Migraine Caplet] 2 each PO TIDP PRN [History Confirmed 09/08/17 Last Taken Unknown] Celecoxib 50 mg PO BID 09/08/17 [History Confirmed 09/08/17 Last Taken Unknown] Clopidogrel Bisulfate [Plavix] 75 mg PO DAILY 09/08/17 [History Confirmed Last Taken Unknown] Famotidine [Pepcid] 40 mg PO DAILY 09/08/17 [History Confirmed 09/08/17 Last Taken Unknown] Flaxseed Oil [Flax Seed Oil] 1,000 mg PO DAILY 09/08/17 [History Confirmed 09/08 Last Taken Unknown] Hydrochlorothiazide [Oretic] 25 mg PO DAILY 09/08/17 [History Confirmed Last Taken Unknown] Insulin Aspart [Novolog] See Protocol SQ ACHS 09/08/17 [History Confirmed Last Taken Unknown] Insulin Glargine,Hum.rec.anlog [Lantus Solostar] 65 unit SQ HS 09/08/17 [ History Confirmed 09/08/17 Last Taken Unknown] Magnesium Oxide [Elizabeth] 500 mg PO DAILY 09/08/17 [History Confirmed 09/08/17 Last Taken Unknown] Multivitamin [One Daily] 1 each PO DAILY 09/08/17 [History Confirmed 09/08/17 Last Taken Unknown] [place]-3/Dha/Epa/Fish Oil [Fish Oil 1,000 mg Softgel] 2,000 mg PO DAILY 09/08/17 [History Confirmed 09/08/17 Last Taken Unknown] Potassium Chloride [K-Tab ER] 20 meq PO DAILY 09/08/17 [History Confirmed Last Taken Unknown] Pregabalin [Lyrica] 50 mg PO TID 09/08/17 [History Confirmed 09/08/17 Last Taken Unknown] Ranitidine HCl [Zantac] 150 mg PO HS 09/08/17 [History Confirmed 09/08/17 Last Taken Unknown] Simethicone [Gas Relief] 250 mg PO TIDP PRN 09/08/17 [History Confirmed Last Taken Unknown] Ubidecarenone/Vit E Acetate [Co Q-10 100 mg Softgel] 1 each PO DAILY 09/08/17 [ History Confirmed 09/08/17 Last Taken Unknown] Vitamin D3 5,000 unit PO DAILY 09/08/17 [History Confirmed 09/08/17 Last Taken Unknown] guaiFENesin/ePHEDrine HCL [Primatene Asthma Tablet] 1 each PO TIDP PRN MDD 3 tablets 09/08/17 [History Confirmed 09/08/17 Last Taken Unknown] Medical - DS: [facility] Hospital course: Mr. Healy is a 67 year old F September 08, 2017: History of present illness: Ms. Healy is a 67 year old female with a history of fibromyalgia, psoriasis, TIA , irritable bowel syndrome who has been struggling with fatigue and leg pain for about 3 years since a fall. She now has chronic lymphedema of her left greater than right lower leg. She was in her usual state of health until 3 days prior to admission. She said she had brought her here to the hospital for a GI evaluation, and developed sudden onset of chills. By the time she got home she was having shaking chills, and collapsed when getting out of her car. Her had to call the addressograph operator to help get her back into her home. The next day her was able to get her up to use a walker to get to and from the bathroom, but she started to run a high fever. Late last night the addressograph operator were called back because she was so weak, and she says the addressograph operator reported her temperature at 104.6. She says she has had a bad bitemporal headache for the last few days, but denies significant neck stiffness, although her neck is sore this morning from "lying in bed too long". She does note that her head feels a little worse if she sits up. ER evaluation did show a temperature of 101.2. Screens for influenza were negative. Chest x-ray was unrevealing. Urinalysis was mildly abnormal. Anesthesia was called to do an LP, but they declined as the patient is on Plavix and aspirin. She denies dizziness, new eye or ear symptoms, significant sinus symptoms, sore throat or cough, swollen glands, chest pain or palpitations , shortness of breath or cough, abdominal pain, nausea or vomiting. She did have one episode of very loose stools yesterday, but no bowel movement since then. She denies dysuria. She says her left lower extremity lymphedema seems a little worse the last couple of days, but not significantly so. Her only new medication was Celebrex, which was started about 3 weeks ago. Sep 09: Feeling better today. MARSH has improved and is only on the R side of her head. Fever curve trending down to 101.2 today. She was able to sit up in the chair for a short time today. Cultures still negative. PCT 3.35; ESR 67. Multiple intolerances to medications. Sep 10: Urine cx growing <10K of GNR--no ID on final cx. Urine in [place] has been cloudy and pt has some pain with catheter but denies any dysuria prior to admission like prior UTIs. She still is quite weak and does not think she can walk all the way to the bathroom. Afebrile since yesterday. CXR shows progression in bilateral infiltrates with small L effusion. ROS: no fever or marsh September 11: Hospital course: A specific etiology for the patient's high fever was never found. Her fever gradually defervesced. Her energy improved daily, and by today she was requesting to go home. She has been up walking with a walker, and feels that she can get around her small home adequately. She has no interest in going to rehab. We were unable to do a spinal tap, as she needed to be off Plavix for 1 week. Otherwise, she denies fever chills, chest pain or shortness of breath, GI or complaints. On exam, she is in no acute distress. She is smiling. Neck shows no obvious JVD or lymphadenopathy. Cardiac exam shows regular rate and rhythm. Lungs are clear to auscultation. Abdomen is soft and nontender. Extremities continue to show the swelling below the knees, without any pitting edema. Neurologic exam is grossly nonfocal. A/P Narrative: 1. Infectious disease, fever of uncertain origin. Patient meets criteria for SIRS syndrome. The source of her sudden onset high fever is unclear but may have PNA on CXR although not hypoxic and no cough. Urine +GNR, but low count. -Patient was covered with Rocephin and vancomycin, which should cover common infections, meningitis, MRSA. -She will be discharged on Bactrim to cover usual infections. -Patient does have chronic lymphedema, but does not have obvious signs of lower extremity cellulitis at this time. 2. CODE STATUS: Patient prefers to remain a full code. Her would act as her POA. She would not want long-term life support. 3. DVT prophylaxis: heparin 4. Type 2 diabetes. Hemoglobin A1c is 7.3%, which indicates reasonable control. Mild hypoglycemia 09/10. Decrease Lantus to 42 units HS. Cont SSI. Accu-Cheks before meals and at bedtime. Hold Jardiance, regarding increased risk of UTI, yeast infections. #5. Rheumatologic. History of psoriasis, so she may be somewhat immunocompromised. However, she is not currently taking medications for this. She was started on Celebrex recently for joint pain, and was to have follow-up with a new white metal caster. -Also history of fibromyalgia. DC'd Celebrex with slight elevation of her creatinine. 6. GI. Patient presents with anemia which is worse than her baseline. She certainly could have a low-grade GI bleed due to the Celebrex. Hold Celebrex. Monitor H and H--stable thus far -Reported history of GERD. Cont pepcid. -Past history of hepatitis B, in remission. -Reported history of irritable bowel syndrome. Patient had one episode of diarrhea, so C. difficile screen was ordered. However, she has not had further stools since her arrival-->will DC C diff. 7. Renal. Patient presents with acute worsening of renal function, having bumped her creatinine from 1.1 up to 1.4. Resolved with hydration. #8. Generalized weakness, chronic pain, and what sounds like general decline in ability to perform ADLs over the last few years. -Physical therapy and occupational therapy evaluations. Case management referral to look into other services the patient might be eligible for; does not want to go to SNF. Charge back to home today. Discharge diagnosis: High fever of uncertain origin. Possible early pneumonia. - Time Spent with Patient Total time spent providing and/or coordinating discharge services: Greater than 30 minutes Medical - DS: Exam - Constitutional Vitals: Vital Signs Temp Pulse Resp BP Pulse Ox 09/11/17 08:00 98.7 F 92 H 17 132/74 97 09/11/17 04:00 100.2 F H 102 H 20 141/53 91 09/11/17 00:00 98.9 F 88 20 95 09/10/17 20:00 98.0 F 88 20 138/62 92 09/10/17 16:00 99.0 F H 86 16 132/78 95 09/10/17 11:39 99.5 F H 18 139/62 95 Intake and Output 09/10/17 09/11/17 09/11/17 21:59 05:59 13:59 Intake Total 500 / 500 Output Total 600 / 600 Balance -600 / -600 500 / 500 Intake: IV 500 / 500 Vancomycin 1,500 mg In Sodium 500 / 500 Chloride 0.9% 500 ml @ 333.3 mls/hr IV DAILY@1600 [facility] Rx#: [id number] Output: Urine Catheter Amount 600 / 600 Other: # Voids 3 1 Weight 282 lb Medical - DS: Data Labs on day of discharge: Labs from last 24 hours 09/11/17 09/11/17 03:36 03:36 WBC 6.9 RBC 3.17 L Hgb 9.6 L Hct 28.5 L MCV 89.8 MCH 30.4 MCHC 33.9 RDW 13.4 Plt Count 219 MPV 8.4 Gran % 74.7 Lymph % (Auto) 14.4 L [place] % (Auto) 8.9 Eos % (Auto) 1.6 Baso % (Auto) 0.4 Gran # 5.1 Lymph # (Auto) 1.0 L [place] # (Auto) 0.6 Eos # (Auto) 0.1 Baso # (Auto) 0 Sodium 139 Potassium 4.2 Chloride 103 Carbon Dioxide 23 Anion Gap 13.0 BUN 20 Creatinine 1.0 GFR Calculation 59 Glucose 101 Calcium 8.4 L Preliminary micro results at discharge 09/08/17 03:44 Blood Culture - Preliminary Blood 09/08/17 03:37 Blood Culture - Preliminary Blood September 10: Chest x-ray showed small patchy bibasilar infiltrates with small left pleural effusion. September 08: Chest x-ray from this morning shows no change in mild bibasilar airspace disease which is likely atelectasis. CBC shows hemoglobin of 9.9, hematocrit 28.7. Baseline H and H appeared to be around 12 and 36. Urinalysis shows 5 ketones, positive nitrites, 5 white blood cells, few bacteria , negative leukocyte esterase. Next Urine culture grew less than 10,000 gram-negative bacilli. Blood cultures are negative so far. September 07: Chest x-ray: Showed mild left basilar atelectasis. Moderate thoracic spine degenerative disc disease. Old left clavicle fracture. Minimal wedging of thoracic vertebrae. Head CT showed no acute disease. Medical - DS: A/P - Patient/Caregiver Discharge Instructions Activity: increase activity as tolerated Diet: Consistent Carbohydrate Additional Instructions: 1. Fever. The cause of your high fever was not entirely clear. X-ray does suggest possible very early infiltrate in the bottom of your lungs. Please continue to work with your incentive spirometer, to deep breathe every day, to be sure to inflate her lungs fully. This will decrease the risk of recurrent pneumonia. We will start you on an oral antibiotic, bactrim DS ( cancelled clindamycin re: your concern about allergy) today. Take as directed. Please call your doctor right away if your high fevers return. 2. You were recently started on Celebrex for your arthritis. This is a very high risk medication for you, as it increases the risk of ulcers , fluid retention, hypertension, heart attack, stroke. We have discontinued this. Please obtain Tylenol arthritis, and take 1 3 times a day, to help manage her pain. You should also follow-up with rheumatology. 3. Diabetes. Your blood sugars ran a bit low here, so your Lantus dose was decreased to 42 units a day. Please continue to monitor blood sugars, and adjust insulin as needed. Your jardience was also discontinued. Your glucoses were reasonably controlled without it, and it does increase your risk of bladder infections. #4. You have a history of reflux. Celebrex was held. You have been taking both Pepcid and Zantac, (famotidine and ranitidine) and should just take one or the other regarding your GERD. 5. You were dehydrated on admission, so hydrochlorothiazide was discontinued. Prescriptions: Acetaminophen [Tylenol Arthritis] 650 mg PO Q8H #90 tablet.er Sulfamethoxazole/Trimethoprim [Bactrim Ds] 1 tab PO BID #14 tab - Problem Maintenance (1) Anemia Status: Acute (2) Fever of unknown origin Status: Acute (3) CVA (cerebral vascular accident) Status: Chronic Qualifiers: CVA mechanism: unspecified Qualified Code(s): I63.9 - Cerebral infarction, unspecified (4) Diabetes mellitus, type II Status: Chronic Comment: 2011 Qualifiers: Diabetes mellitus complication status: with neurologic complications Diabetes mellitus complication detail: with polyneuropathy Diabetes mellitus terminal gauger insulin use: with terminal gauger use Qualified Code(s): E11.42 - Type 2 diabetes mellitus with diabetic polyneuropathy (5) Lymphedema of both lower extremities Status: Chronic (6) Psoriasis Status: Chronic Comment: from - Follow up Plan Follow up with: Melody Galeas DO [Primary Care Provider] - 09/19/17 2:00 pm (check in at 1: 45 pm) Disposition: Home, Self-Care Prognosis: Good Rehab Potential: Good Overall status at discharge: patient is progressing back to baseline Medical - DS: Qual - VTE Deep Vein Thrombosis/Pulmonary Embolism Present on Admission: No
== END 2017-09-11 15:00 | disposition home or self-care (01) | DRG 194 ==
LOC: ED 22:00 → ICU 09-08 02:24
PROVIDERS: ADMIT Internal Medicine; ATTEND Internal Medicine

== ENCOUNTER 2023-12-24 18:09 | Inpatient (IN) ==
[2023-12-24] MEDS: LACTATED RINGERS 1,000 ML IV ONE (18:27)
[2023-12-24 18:43] LABS: Basophils # (Auto) 0.04 K/mcL (0.00-0.30); Basophils % (Auto) 0.3 % (0.0-2.0); Eosinophils # (Auto) 0.02 K/mcL (0.00-0.70); Eosinophils % (Auto) 0.2 % (0.0-7.0); Hematocrit 21.5 % (34.1-44.9); Hemoglobin 6.8 g/dL (11.2-15.7); Lymphocytes # (Auto) 1.64 K/mcL (1.50-4.80); Lymphocytes % (Auto) 13.2 % (15.5-49.0); Mean Cell Volume 97.3 fL (80.0-100.0); Mean Corpuscular HGB Conc 31.6 g/dL (31.0-36.0); Mean Platelet Volume 8.8 fL (8.8-12.5); Monocytes # (Auto) 1.08 K/mcL (0.10-0.90); Monocytes % (Auto) 8.7 % (1.0-12.0); Neutrophils % (Auto) 69.5 % (38.0-78.0); Platelet Count 394 K/mcL (140-440); RBC 2.21 M/mcL (3.59-5.38); Red Cell Distribution Width 15.9 % (11.5-14.5); WBC 12.4 K/mcL (4.5-11.0)
[2023-12-24 18:59] LABS: Phosphorous 3.8 mg/dL (2.5-4.5)
[2023-12-24 19:01] LABS: ALT/SGPT 19 U/L (<40); AST/SGOT 26 U/L (<32); Albumin 3.1 gm/dL (3.2-5.2); Albumin/Globulin Ratio 1.1 (1.0-2.3); Alkaline Phosphatase 118 U/L (39-117); Bilirubin,Total 0.5 mg/dL (0.1-1.0); Blood Urea Nitrogen 22 mg/dL (8-23); Calcium 8.9 mg/dL (8.6-10.4); Carbon Dioxide 22 mmol/L (22-30); Chloride 93 mmol/L (96-108); Globulin 2.7 gm/dL (2.2-3.7); Glomerular Filtration Rate 26; Glucose 153 mg/dL (70-105)
[2023-12-24] MEDS: 0.9 % SODIUM CHLORIDE 250 ML IV SCH (19:01)
[2023-12-24] MEDS: METOCLOPRAMIDE 10 MG/2 ML VIAL IV ONE (19:58)
[2023-12-24] MEDS ORDERED: ACETAMINOPHEN 325 MG TABLET PO PRN (20:56)
[2023-12-24] MEDS ORDERED: SENNOSIDES 1 TABLET PO PRN (20:56)
[2023-12-24] MEDS ORDERED: DEXTROSE 31 GM ORAL.SUSP PO PRN (20:56)
[2023-12-24] MEDS: 0.9 % SODIUM CHLORIDE 10 ML SYRINGE IV SCH (21:24)
[2023-12-24] MEDS: INSULIN LISPRO 1 UNIT/0.01 ML UNIT SQ SCH (21:29)
[2023-12-24] MEDS: LACTATED RINGERS 1,000 ML IV SCH (23:51)
[2023-12-25 06:23] LABS: ALT/SGPT 12 U/L (<40); AST/SGOT 20 U/L (<32); Albumin 2.5 gm/dL (3.2-5.2); Albumin/Globulin Ratio 1.2 (1.0-2.3); Alkaline Phosphatase 88 U/L (39-117); Bilirubin,Direct 0.3 mg/dL (<0.3); Bilirubin,Total 0.6 mg/dL (0.1-1.0); Blood Urea Nitrogen 21 mg/dL (8-23); Calcium 8.2 mg/dL (8.6-10.4); Carbon Dioxide 24 mmol/L (22-30); Chloride 99 mmol/L (96-108); Globulin 2.1 gm/dL (2.2-3.7); Glomerular Filtration Rate 29; Glucose 93 mg/dL (70-105); Lactate Dehydrogenase 252 U/L (135-225); Phosphorous 3.7 mg/dL (2.5-4.5); Triglycerides 104 mg/dL (<150); Uric Acid 8.2 mg/dL (2.5-8.0)
[2023-12-25 06:28] LABS: Basophils # (Auto) 0.02 K/mcL (0.00-0.30); Basophils % (Auto) 0.4 % (0.0-2.0); Eosinophils # (Auto) 0.03 K/mcL (0.00-0.70); Eosinophils % (Auto) 0.5 % (0.0-7.0); Hematocrit 21.3 % (34.1-44.9); Hemoglobin 6.8 g/dL (11.2-15.7); Lymphocytes # (Auto) 0.67 K/mcL (1.50-4.80); Lymphocytes % (Auto) 11.7 % (15.5-49.0); Mean Cell Volume 94.7 fL (80.0-100.0); Mean Corpuscular HGB Conc 31.9 g/dL (31.0-36.0); Mean Platelet Volume 8.9 fL (8.8-12.5); Monocytes # (Auto) 0.69 K/mcL (0.10-0.90); Monocytes % (Auto) 12.1 % (1.0-12.0); Neutrophils % (Auto) 67.4 % (38.0-78.0); Platelet Count 260 K/mcL (140-440); RBC 2.25 M/mcL (3.59-5.38); Red Cell Distribution Width 16.6 % (11.5-14.5); WBC 5.7 K/mcL (4.5-11.0)
[2023-12-25 07:02] LABS: Iron 96 ug/dL (37-145); TIBC Calculation 134 ug/dl (228-428); Transferrin % Saturation 72 % (15-50)
[2023-12-25] MEDS: 0.9 % SODIUM CHLORIDE 250 ML IV SCH (08:45)
[2023-12-25 09:26] LABS: Appearance,Urine Slightly Cloudy (Clear); Bacteria,Urine Many /hpf (0); Bilirubin,Urine Negative (Negative); Color,Urine Amber; Culture Indicated,Urine No; Glucose,Urine (UA) Negative (Negative); Ketones,Urine 40 mg/dL (Negative); Leukocyte Esterase,Urine Moderate /uL (Negative); Nitrate,Urine Positive (Negative); Protein,Urine Trace mg/dL (Negative); Urine Blood Trace-intact ery/mcL (Negative); Urine RBC 2 /hpf (0-3); Urine Renal Epithelial Cells 1 /hpf (0-2); Urine Squamous Epithelial Cell 8 /hpf (0-4); Urine Transitional Epi Cells 1 /hpf (0-2); Urine WBC 49 /hpf (0-4); Urobilinogen,Urine Normal
[2023-12-25] MEDS: LACTATED RINGERS 1,000 ML IV SCH (10:12)
[2023-12-25 12:31] LABS: Hematocrit 25.5 % (34.1-44.9)
[2023-12-25 12:40] LABS: Hemoglobin 8.5 g/dL (11.2-15.7)
[2023-12-25] MEDS ORDERED: SODIUM CHLORIDE IRRIG SOLUTION 500 ML BOTTLE IRR ONE (16:04)
[2023-12-25] MEDS: 0.9 % SODIUM CHLORIDE 10 ML SYRINGE IV SCH (20:11)
[2023-12-25] MEDS: traMADol 50 MG TABLET PO PRN (20:38)
[2023-12-26] MEDS: DEXTROSE 50% 50 ML VIAL IV PRN (07:54)
[2023-12-26 07:57] LABS: ALT/SGPT 22 U/L (<40); AST/SGOT 56 U/L (<32); Albumin 2.3 gm/dL (3.2-5.2); Albumin/Globulin Ratio 1.2 (1.0-2.3); Alkaline Phosphatase 252 U/L (39-117); Bilirubin,Direct 0.4 mg/dL (<0.3); Bilirubin,Total 0.7 mg/dL (0.1-1.0); Blood Urea Nitrogen 16 mg/dL (8-23); Calcium 7.9 mg/dL (8.6-10.4); Carbon Dioxide 25 mmol/L (22-30); Chloride 98 mmol/L (96-108); Globulin 1.9 gm/dL (2.2-3.7); Glomerular Filtration Rate 50; Glucose 68 mg/dL (70-105); Lactate Dehydrogenase 258 U/L (135-225); Phosphorous 4.1 mg/dL (2.5-4.5); Triglycerides 89 mg/dL (<150); Uric Acid 8.3 mg/dL (2.5-8.0)
[2023-12-26] MEDS ORDERED: DEXTROSE 50% 50 ML SYRINGE IV PRN (08:00)
[2023-12-26] MEDS ORDERED: TPN PER PHARMACY IV SCH (10:17)
[2023-12-26 10:43] LABS: Prealbumin 10.7 mg/dL (20.0-40.0)
[2023-12-26] MEDS ORDERED: OLANZapine 5 MG TABLET PO PRN (14:11)
[2023-12-26] MEDS: CALCIUM GLUCONATE 5 MEQ, MAGNESIUM SULFATE 8.12 MEQ, SODIUM CHLORIDE 40 MEQ, POTASSIUM ... IV SCH (14:20)
[2023-12-26] MEDS: LACTATED RINGERS 1,000 ML IV SCH (14:37)
[2023-12-26] MEDS: SUCRALFATE 1 GM TABLET PO SCH (16:38)
[2023-12-26] MEDS: LIDOCAINE VISCOUS 2% 15 ML UNIT DOSE CUP PO SCH (16:38)
[2023-12-26] MEDS: PREGABALIN 150 MG CAPSULE PO SCH (21:28)
[2023-12-27] MEDS: 0.9 % SODIUM CHLORIDE 10 ML SYRINGE IV PRN (06:51)
[2023-12-27 07:22] LABS: ALT/SGPT 19 U/L (<40); AST/SGOT 26 U/L (<32); Albumin 2.4 gm/dL (3.2-5.2); Albumin/Globulin Ratio 1.3 (1.0-2.3); Alkaline Phosphatase 209 U/L (39-117); Bilirubin,Direct 0.3 mg/dL (<0.3); Bilirubin,Total 0.6 mg/dL (0.1-1.0); Blood Urea Nitrogen 13 mg/dL (8-23); Calcium 7.9 mg/dL (8.6-10.4); Carbon Dioxide 29 mmol/L (22-30); Chloride 101 mmol/L (96-108); Globulin 1.8 gm/dL (2.2-3.7); Glomerular Filtration Rate 73; Glucose 170 mg/dL (70-105); Lactate Dehydrogenase 233 U/L (135-225); Triglycerides 114 mg/dL (<150); Uric Acid 7.1 mg/dL (2.5-8.0)
[2023-12-27] MEDS: FAMOTIDINE 20 MG TABLET PO SCH (08:14)
[2023-12-27 09:18] LABS: Hematocrit 26.3 % (34.1-44.9); Hemoglobin 8.6 g/dL (11.2-15.7)
[2023-12-27] MEDS: MAGNESIUM SULFATE 2 GM/50 ML BAG IV ONE (09:28)
[2023-12-27] MEDS: CHOLESTYRAMINE/ASPARTAME 4 GM POWD.PACK PO SCH (12:17)
[2023-12-27] MEDS: DICYCLOMINE 20 MG TABLET PO SCH (12:32)
[2023-12-27] MEDS: LOPERAMIDE 2 MG CAPSULE PO PRN (12:32)
[2023-12-27] MEDS: CALCIUM GLUCONATE 10 MEQ, MAGNESIUM SULFATE 16.24 MEQ, SODIUM CHLORIDE 80 MEQ, POTASSIU... IV SCH (13:57)
[2023-12-27] MEDS: diphenhydrAMINE 50 MG/ML VIAL IV PRN (22:01)
[2023-12-28] MEDS: traMADol 50 MG TABLET PO PRN (00:28)
[2023-12-28 06:50] LABS: Hematocrit 25.3 % (34.1-44.9); Hemoglobin 8.1 g/dL (11.2-15.7)
[2023-12-28 10:26] LABS: ALT/SGPT 10 U/L (<40); AST/SGOT 12 U/L (<32); Albumin 2.4 gm/dL (3.2-5.2); Albumin/Globulin Ratio 1.3 (1.0-2.3); Alkaline Phosphatase 168 U/L (39-117); Bilirubin,Direct < 0.2 mg/dL (0-0.3); Bilirubin,Total 0.4 mg/dL (0.1-1.0); Blood Urea Nitrogen 18 mg/dL (8-23); Calcium 8.1 mg/dL (8.6-10.4); Carbon Dioxide 26 mmol/L (22-30); Chloride 101 mmol/L (96-108); Globulin 1.8 gm/dL (2.2-3.7); Glomerular Filtration Rate 86; Glucose 164 mg/dL (70-105); Lactate Dehydrogenase 234 U/L (135-225); Phosphorous 2.2 mg/dL (2.5-4.5); Triglycerides 145 mg/dL (<150); Uric Acid 5.2 mg/dL (2.5-8.0)
[2023-12-28] MEDS: ONDANSETRON 4 MG/2 ML VIAL IV PRN (11:05)
[2023-12-28] MEDS: MAGNESIUM SULFATE IV SCH (14:16)
[2023-12-28] MEDS: CALCIUM GLUCONATE IV SCH (14:16)
[2023-12-28] MEDS: [UNRECOGNIZED DRUG - OTHER] IV SCH (14:16)
[2023-12-28] MEDS: PROCHLORPERAZINE 10 MG TABLET PO PRN (14:16)
[2023-12-28] MEDS: SODIUM CHLORIDE IV SCH (14:16)
[2023-12-29] MEDS: INSULIN LISPRO 1 UNIT/0.01 ML UNIT SQ SCH ×2 (06:05→09:06)
[2023-12-29 06:24] LABS: Hematocrit 26.2 % (34.1-44.9); Hemoglobin 8.3 g/dL (11.2-15.7)
[2023-12-29] MEDS: INSULIN LISPRO 1 UNIT/0.01 ML UNIT SQ ONE (06:35)
[2023-12-29 07:12] LABS: ALT/SGPT 5 U/L (<40); AST/SGOT 9 U/L (<32); Albumin 2.4 gm/dL (3.2-5.2); Albumin/Globulin Ratio 1.3 (1.0-2.3); Alkaline Phosphatase 142 U/L (39-117); Bilirubin,Direct < 0.2 mg/dL (0-0.3); Bilirubin,Total 0.3 mg/dL (0.1-1.0); Blood Urea Nitrogen 22 mg/dL (8-23); Calcium 8.2 mg/dL (8.6-10.4); Carbon Dioxide 23 mmol/L (22-30); Chloride 101 mmol/L (96-108); Globulin 1.9 gm/dL (2.2-3.7); Glomerular Filtration Rate 86; Glucose 351 mg/dL (70-105); Lactate Dehydrogenase 191 U/L (135-225); Phosphorous 2.7 mg/dL (2.5-4.5); Triglycerides 195 mg/dL (<150); Uric Acid 4.3 mg/dL (2.5-8.0)
[2023-12-29 09:18] LABS: Prealbumin 12.2 mg/dL (20.0-40.0)
[2023-12-29] MEDS: INSULIN GLARGINE, HUMAN 1 UNIT/0.01 ML SQ SCH ×2 (11:08→11:18)
[2023-12-29] MEDS: MAGNESIUM SULFATE IV SCH (14:00)
[2023-12-29] MEDS: CALCIUM GLUCONATE IV SCH (14:00)
[2023-12-29] MEDS: [UNRECOGNIZED DRUG - OTHER] IV SCH (14:00)
[2023-12-29] MEDS: SODIUM CHLORIDE IV SCH (14:00)
[2023-12-30 06:30] LABS: ALT/SGPT 7 U/L (<40); AST/SGOT 10 U/L (<32); Albumin 2.4 gm/dL (3.2-5.2); Albumin/Globulin Ratio 1.1 (1.0-2.3); Alkaline Phosphatase 119 U/L (39-117); Bilirubin,Direct < 0.2 mg/dL (0-0.3); Bilirubin,Total 0.3 mg/dL (0.1-1.0); Blood Urea Nitrogen 23 mg/dL (8-23); Calcium 8.1 mg/dL (8.6-10.4); Carbon Dioxide 23 mmol/L (22-30); Chloride 102 mmol/L (96-108); Globulin 2.1 gm/dL (2.2-3.7); Glomerular Filtration Rate 86; Glucose 316 mg/dL (70-105); Lactate Dehydrogenase 210 U/L (135-225); Phosphorous 4.6 mg/dL (2.5-4.5); Triglycerides 148 mg/dL (<150); Uric Acid 3.8 mg/dL (2.5-8.0)
[2023-12-30 06:37] LABS: Prealbumin 13.3 mg/dL (20.0-40.0)
[2023-12-30] MEDS: INSULIN GLARGINE, HUMAN 1 UNIT/0.01 ML SQ SCH (09:21)
[2023-12-30] MEDS ORDERED: CALCIUM GLUCONATE IV SCH ×2 (10:15→14:00)
[2023-12-30] MEDS ORDERED: SODIUM CHLORIDE IV SCH ×2 (10:15→14:00)
[2023-12-30] MEDS ORDERED: [UNRECOGNIZED DRUG - OTHER] IV SCH (10:15)
[2023-12-30] MEDS ORDERED: MAGNESIUM SULFATE IV SCH ×2 (10:15→14:00)
[2023-12-30] MEDS ORDERED: [UNRECOGNIZED DRUG - OTHER] IV SCH (14:00)
[2023-12-30] MEDS: CALCIUM GLUCONATE IV SCH (14:36)
[2023-12-30] MEDS: MAGNESIUM SULFATE IV SCH (14:36)
[2023-12-30] MEDS: [UNRECOGNIZED DRUG - OTHER] IV SCH (14:36)
[2023-12-30] MEDS: SODIUM CHLORIDE IV SCH (14:36)
[2023-12-31 11:32] VITALS: TEMP 97.6; O2SAT 97
== END 2023-12-31 12:14 | DRG 808 ==
LOC: ED 18:09 → MEDSUR 20:55
PROVIDERS: ADMIT Internal Medicine; ATTEND Internal Medicine

== ENCOUNTER 2024-01-15 17:20 | Inpatient (IN) ==
[2024-01-15] MEDS ORDERED: IOPAMIDOL 100 ML BOTTLE IV ONE (17:21)
[2024-01-15 17:45] LABS: POC Calcium, Ionized 1.11 (1.16-1.32); POC Potassium 3.9 (3.3-5.1)
[2024-01-15 17:53] LABS: Basophils # (Auto) 0.01 K/mcL (0.00-0.30); Basophils % (Auto) 0.1 % (0.0-2.0); Eosinophils # (Auto) 0.02 K/mcL (0.00-0.70); Eosinophils % (Auto) 0.2 % (0.0-7.0); Hematocrit 27.9 % (34.1-44.9); Hemoglobin 9.1 g/dL (11.2-15.7); Lymphocytes # (Auto) 0.33 K/mcL (1.50-4.80); Lymphocytes % (Auto) 3.4 % (15.5-49.0); Mean Cell Volume 97.6 fL (80.0-100.0); Mean Corpuscular HGB Conc 32.6 g/dL (31.0-36.0); Mean Platelet Volume 9.9 fL (8.8-12.5); Monocytes # (Auto) 0.71 K/mcL (0.10-0.90); Monocytes % (Auto) 7.3 % (1.0-12.0); Neutrophils % (Auto) 88.8 % (38.0-78.0); Platelet Count 276 K/mcL (140-440); RBC 2.86 M/mcL (3.59-5.38); Red Cell Distribution Width 15.9 % (11.5-14.5); WBC 9.7 K/mcL (4.5-11.0)
[2024-01-15 17:55] LABS: POC Calcium, Ionized 1.12 (1.16-1.32); POC Creatinine 1.1 (0.6-1.2); POC Potassium 3.8 (3.3-5.1)
[2024-01-15 18:18] LABS: ALT/SGPT 7 U/L (<40); AST/SGOT 18 U/L (<32); Albumin/Globulin Ratio 1.1 (1.0-2.3); Alkaline Phosphatase 85 U/L (39-117); Bilirubin,Total 0.2 mg/dL (0.1-1.0); Blood Urea Nitrogen 34 mg/dL (8-23); Calcium 8.5 mg/dL (8.6-10.4); Carbon Dioxide 25 mmol/L (22-30); Chloride 99 mmol/L (96-108); Globulin 2.8 gm/dL (2.2-3.7); Glomerular Filtration Rate 56; Glucose 182 mg/dL (70-105)
[2024-01-15] MEDS: diphenhydrAMINE 50 MG/ML VIAL IV ONE (18:18)
[2024-01-15] MEDS: methylPREDNISolone SOD SUCC 125 MG/2 ML VIAL IV ONE ×2 (18:18→18:19)
[2024-01-15 18:31] LABS: Prothrombin Time 13.7 sec (11.9-14.5)
[2024-01-15] MEDS: cefTRIAXone 1 GM VIAL IV ONE (19:40)
[2024-01-15] MEDS: AZITHROMYCIN 500 MG in DEXTROSE 5% IN WATER 250 ML IV ONE (20:14)
[2024-01-15] MEDS ORDERED: SENNOSIDES 1 TABLET PO PRN (21:45)
[2024-01-15] MEDS ORDERED: IPRATROPIUM/ALBUTEROL 3 ML AMPUL.NEB NEB PRN (21:45)
[2024-01-15] MEDS ORDERED: ONDANSETRON 4 MG/2 ML VIAL IV PRN (21:45)
[2024-01-15] MEDS ORDERED: POTASSIUM CHLORIDE 20 MEQ TABLET PO PRN ×2 (21:45)
[2024-01-15] MEDS ORDERED: MAGNESIUM SULFATE 2 GM/50 ML BAG IV PRN (21:45)
[2024-01-15] MEDS ORDERED: DEXTROSE 31 GM ORAL.SUSP PO PRN (21:45)
[2024-01-15] MEDS ORDERED: POTASSIUM CHLORIDE 40 MEQ in DEXTROSE 5% IN WATER 500 ML IV PRN (21:45)
[2024-01-15] MEDS: DOCUSATE SODIUM 100 MG CAPSULE PO SCH (22:12)
[2024-01-15] MEDS: LORazepam 2 MG/ML VIAL IV PRN (22:39)
[2024-01-15] MEDS: DEXTROSE 5%-1/2NS 1,000 ML IV SCH (22:39)
[2024-01-15] MEDS: FAMOTIDINE/PF 20 MG/2 ML VIAL IV SCH (22:39)
[2024-01-15] MEDS: INSULIN LISPRO 1 UNIT/0.01 ML UNIT SQ SCH (22:43)
[2024-01-15] MEDS: DEXTROSE 50% 50 ML VIAL IV PRN (22:45)
[2024-01-15] MEDS: metroNIDAZOLE 500 MG/100 ML BAG IV SCH (23:03)
[2024-01-15] MEDS: DEXTROSE 50% 50 ML SYRINGE IV ONE (23:20)
[2024-01-16 06:12] LABS: Basophils # (Auto) 0.01 K/mcL (0.00-0.30); Basophils % (Auto) 0.1 % (0.0-2.0); Eosinophils # (Auto) 0 K/mcL (0.00-0.70); Eosinophils % (Auto) 0 % (0.0-7.0); Hematocrit 25.5 % (34.1-44.9); Hemoglobin 8.2 g/dL (11.2-15.7); Lymphocytes # (Auto) 0.39 K/mcL (1.50-4.80); Lymphocytes % (Auto) 4.2 % (15.5-49.0); Mean Cell Volume 99.6 fL (80.0-100.0); Mean Corpuscular HGB Conc 32.2 g/dL (31.0-36.0); Mean Platelet Volume 9.8 fL (8.8-12.5); Monocytes # (Auto) 0.41 K/mcL (0.10-0.90); Monocytes % (Auto) 4.5 % (1.0-12.0); Platelet Count 244 K/mcL (140-440); RBC 2.56 M/mcL (3.59-5.38); Red Cell Distribution Width 15.9 % (11.5-14.5); WBC 9.2 K/mcL (4.5-11.0)
[2024-01-16 07:00] LABS: ALT/SGPT 8 U/L (<40); AST/SGOT 20 U/L (<32); Albumin 2.8 gm/dL (3.2-5.2); Alkaline Phosphatase 73 U/L (39-117); Bilirubin,Direct < 0.2 mg/dL (0-0.3); Bilirubin,Total 0.3 mg/dL (0.1-1.0); Blood Urea Nitrogen 36 mg/dL (8-23); Calcium 8.4 mg/dL (8.6-10.4); Carbon Dioxide 24 mmol/L (22-30); Chloride 96 mmol/L (96-108); Globulin 2.9 gm/dL (2.2-3.7); Glomerular Filtration Rate 56; Glucose 205 mg/dL (70-105); Lactate Dehydrogenase 204 U/L (135-225); Phosphorous 5.2 mg/dL (2.5-4.5); Triglycerides 44 mg/dL (<150)
[2024-01-16] MEDS ORDERED: LOPERAMIDE 2 MG CAPSULE PO PRN (07:59)
[2024-01-16] MEDS ORDERED: DIPHENOXYLATE HCL/ATROPINE 1 TABLET PO PRN (07:59)
[2024-01-16] MEDS ORDERED: traMADol 50 MG TABLET PO PRN (08:11)
[2024-01-16] MEDS: ENOXAPARIN 40 MG/0.4 ML SYRINGE SQ SCH (09:36)
[2024-01-16] MEDS: PREGABALIN 150 MG CAPSULE PO SCH ×2 (09:37→20:40)
[2024-01-16] MEDS: DOCUSATE SODIUM 10 MG/ML ML PT SCH (09:37)
[2024-01-16] MEDS: LEVOFLOXACIN 750 MG/150 ML BAG IV SCH (09:37)
[2024-01-16 09:41] LABS: Hemoglobin A1C 5.3 % Hgb (4.0-6.0)
[2024-01-16] MEDS: FAMOTIDINE 20 MG TABLET PO SCH (10:36)
[2024-01-16] MEDS ORDERED: cefTRIAXone 1 GM VIAL IV SCH (12:00)
[2024-01-16] MEDS ORDERED: AZITHROMYCIN 500 MG in DEXTROSE 5% IN WATER 250 ML IV SCH (14:00)
[2024-01-17 06:35] LABS: ALT/SGPT 6 U/L (<40); AST/SGOT 16 U/L (<32); Albumin 2.7 gm/dL (3.2-5.2); Alkaline Phosphatase 78 U/L (39-117); Bilirubin,Direct < 0.2 mg/dL (0-0.3); Bilirubin,Total < 0.2 mg/dL (0.1-1.0); Blood Urea Nitrogen 37 mg/dL (8-23); Calcium 8.3 mg/dL (8.6-10.4); Carbon Dioxide 24 mmol/L (22-30); Chloride 98 mmol/L (96-108); Globulin 2.7 gm/dL (2.2-3.7); Glomerular Filtration Rate 50; Glucose 190 mg/dL (70-105); Lactate Dehydrogenase 184 U/L (135-225); Phosphorous 3.5 mg/dL (2.5-4.5); Triglycerides 111 mg/dL (<150); Uric Acid 8.4 mg/dL (2.5-8.0)
[2024-01-17] MEDS: MELATONIN 3 MG TABLET PO SCH (19:46)
[2024-01-17] MEDS: diphenhydrAMINE 25 MG CAPSULE PO PRN (20:44)
[2024-01-18 06:40] LABS: ALT/SGPT < 5 U/L (<40); AST/SGOT 13 U/L (<32); Albumin 2.3 gm/dL (3.2-5.2); Albumin/Globulin Ratio 0.9 (1.0-2.3); Alkaline Phosphatase 75 U/L (39-117); Bilirubin,Direct < 0.2 mg/dL (0-0.3); Bilirubin,Total 0.2 mg/dL (0.1-1.0); Blood Urea Nitrogen 37 mg/dL (8-23); Calcium 7.9 mg/dL (8.6-10.4); Carbon Dioxide 24 mmol/L (22-30); Chloride 101 mmol/L (96-108); Globulin 2.5 gm/dL (2.2-3.7); Glomerular Filtration Rate 50; Glucose 186 mg/dL (70-105); Lactate Dehydrogenase 178 U/L (135-225); Phosphorous 3.2 mg/dL (2.5-4.5); Triglycerides 54 mg/dL (<150); Uric Acid 8.9 mg/dL (2.5-8.0)
[2024-01-18 06:51] LABS: Basophils # (Auto) 0.01 K/mcL (0.00-0.30); Basophils % (Auto) 0.1 % (0.0-2.0); Eosinophils # (Auto) 0 K/mcL (0.00-0.70); Eosinophils % (Auto) 0 % (0.0-7.0); Hematocrit 21.8 % (34.1-44.9); Hemoglobin 6.9 g/dL (11.2-15.7); Lymphocytes # (Auto) 0.59 K/mcL (1.50-4.80); Lymphocytes % (Auto) 8.1 % (15.5-49.0); Mean Cell Volume 102.3 fL (80.0-100.0); Mean Corpuscular HGB Conc 31.7 g/dL (31.0-36.0); Monocytes # (Auto) 0.57 K/mcL (0.10-0.90); Monocytes % (Auto) 7.8 % (1.0-12.0); Neutrophils % (Auto) 82.8 % (38.0-78.0); Platelet Count 208 K/mcL (140-440); RBC 2.13 M/mcL (3.59-5.38); Red Cell Distribution Width 16.6 % (11.5-14.5); WBC 7.3 K/mcL (4.5-11.0)
[2024-01-18] MEDS ORDERED: LACTOPEROXI/GLUC OXID/POT THIO 1 EACH GEL..EA. TOPICAL PRN (09:35)
[2024-01-18] MEDS ORDERED: FUROSEMIDE 20 MG/2 ML VIAL IV ONE (11:00)
[2024-01-18] MEDS: 0.9 % SODIUM CHLORIDE 250 ML IV SCH (12:19)
[2024-01-18] MEDS: FUROSEMIDE 20 MG/2 ML VIAL IV ONE ×2 (14:14→14:47)
[2024-01-18] MEDS: 0.9 % SODIUM CHLORIDE 10 ML SYRINGE IV SCH (18:58)
[2024-01-18] MEDS: ACETAMINOPHEN 325 MG TABLET PO PRN (20:14)
[2024-01-18] MEDS: PROCHLORPERAZINE 10 MG TABLET PO PRN (20:14)
[2024-01-18] MEDS: POLYETHYLENE GLYCOL 3350 17 GM PACKET PO PRN (20:14)
[2024-01-19 06:06] LABS: Basophils # (Auto) 0.01 K/mcL (0.00-0.30); Basophils % (Auto) 0.1 % (0.0-2.0); Eosinophils # (Auto) 0.03 K/mcL (0.00-0.70); Eosinophils % (Auto) 0.4 % (0.0-7.0); Hematocrit 30.1 % (34.1-44.9); Hemoglobin 9.8 g/dL (11.2-15.7); Lymphocytes # (Auto) 0.51 K/mcL (1.50-4.80); Lymphocytes % (Auto) 7.1 % (15.5-49.0); Mean Cell Volume 94.7 fL (80.0-100.0); Mean Corpuscular HGB Conc 32.6 g/dL (31.0-36.0); Mean Platelet Volume 10.1 fL (8.8-12.5); Monocytes # (Auto) 0.71 K/mcL (0.10-0.90); Monocytes % (Auto) 9.9 % (1.0-12.0); Neutrophils % (Auto) 79.7 % (38.0-78.0); Platelet Count 195 K/mcL (140-440); RBC 3.18 M/mcL (3.59-5.38); Red Cell Distribution Width 18.2 % (11.5-14.5); WBC 7.2 K/mcL (4.5-11.0)
[2024-01-19 06:50] LABS: ALT/SGPT < 5 U/L (<40); AST/SGOT 13 U/L (<32); Albumin 2.3 gm/dL (3.2-5.2); Albumin/Globulin Ratio 0.9 (1.0-2.3); Alkaline Phosphatase 82 U/L (39-117); Bilirubin,Direct < 0.2 mg/dL (0-0.3); Bilirubin,Total 0.4 mg/dL (0.1-1.0); Blood Urea Nitrogen 31 mg/dL (8-23); Calcium 7.9 mg/dL (8.6-10.4); Carbon Dioxide 26 mmol/L (22-30); Chloride 102 mmol/L (96-108); Globulin 2.6 gm/dL (2.2-3.7); Glomerular Filtration Rate 64; Glucose 223 mg/dL (70-105); Lactate Dehydrogenase 167 U/L (135-225); Phosphorous 3.1 mg/dL (2.5-4.5); Triglycerides 51 mg/dL (<150); Uric Acid 8.6 mg/dL (2.5-8.0)
[2024-01-19] MEDS: BISACODYL 10 MG SUPP.RECT PR PRN (08:26)
[2024-01-20] MEDS: METOCLOPRAMIDE 10 MG TABLET PO PRN (08:46)
[2024-01-20] MEDS ORDERED: BENZONATATE 100 MG CAPSULE PO PRN (09:17)
[2024-01-20] MEDS: BENZONATATE 100 MG CAPSULE PO ONE (10:27)
[2024-01-20 12:14] VITALS: TEMP 98.7; O2SAT 93
[2024-01-20] MEDS: ACETAMINOPHEN 325 MG TABLET PO PRN (13:07)
[2024-01-20] MEDS: guaiFENesin 600 MG TAB.SR.12H PO ONE (13:08)
== END 2024-01-20 15:10 | DRG 189 ==
LOC: ED 17:20 → ICU 21:40
PROVIDERS: ADMIT Internal Medicine; ATTEND Internal Medicine

== ENCOUNTER 2025-05-15 12:14 | Inpatient (IN) ==
[2025-05-15] MEDS: 0.9 % SODIUM CHLORIDE 1,000 ML IV ONE ×3 (12:31→15:30)
[2025-05-15 13:07] LABS: Alcohol,Blood < 0.010 gm/dL (<0.010)
[2025-05-15] MEDS: diphenhydrAMINE 50 MG/ML VIAL IV ONE (13:10)
[2025-05-15 13:16] LABS: Thyroid Stimulating Hormone 3.94 uIU/mL (0.27-5.01)
[2025-05-15 13:46] LABS: Beta Hydroxybutyrate 1.31 mmol/L (<0.27)
[2025-05-15 14:05] LABS: Basophils # (Auto) 0.02 K/mcL (0.00-0.30); Basophils % (Auto) 0.2 % (0.0-2.0); Eosinophils # (Auto) 0 K/mcL (0.00-0.70); Eosinophils % (Auto) 0 % (0.0-7.0); Hematocrit 41.3 % (34.1-44.9); Hemoglobin 12.8 g/dL (11.2-15.7); Lymphocytes # (Auto) 0.42 K/mcL (1.50-4.80); Lymphocytes % (Auto) 4.0 % (15.5-49.0); Mean Corpuscular HGB Conc 31.0 g/dL (31.0-36.0); Monocytes # (Auto) 0.53 K/mcL (0.10-0.90); Monocytes % (Auto) 5.0 % (1.0-12.0); Neutrophils % (Auto) 90.3 % (38.0-78.0); Platelet Count 289 K/mcL (140-440); RBC 4.09 M/mcL (3.59-5.38); WBC 10.6 K/mcL (4.5-11.0)
[2025-05-15 14:07] LABS: POC Blood Urea Nitrogen 100 (6-20); POC CO2 25.0 (22-30); POC Calcium, Ionized 1.21 (1.16-1.32); POC Glucose, Random > 700 (70-105)
[2025-05-15] MEDS: INSULIN REGULAR, HUMAN 1 UNIT/0.01 ML UNIT IV ONE (14:17)
[2025-05-15] MEDS: INSULIN REGULAR, HUMAN 50 UNIT in 0.9 % SODIUM CHLORIDE 99.5 ML IV SCH (14:49)
[2025-05-15 15:02] LABS: ALT/SGPT 13 U/L (<40); AST/SGOT 11 U/L (<32); Albumin 3.6 gm/dL (3.2-5.2); Albumin/Globulin Ratio 1.1 (1.0-2.3); Alkaline Phosphatase 258 U/L (39-117); Anion Gap 17.0 (8.0-16.0); Bilirubin,Total < 0.2 mg/dL (0.1-1.0); Blood Urea Nitrogen 88 mg/dL (8-23); Calcium 9.5 mg/dL (8.6-10.4); Carbon Dioxide 21 mmol/L (22-30); Chloride 111 mmol/L (96-108); Globulin 3.3 gm/dL (2.2-3.7); Glucose 1272 mg/dL (70-105); Potassium 5.7 mmol/L (3.3-5.1); Sodium 149 mmol/L (133-145)
[2025-05-15] MEDS: cefTRIAXone 1 GM VIAL IV ONE (16:06)
[2025-05-15] MEDS: AZITHROMYCIN 500 MG in DEXTROSE 5% IN WATER 250 ML IV ONE (16:07)
[2025-05-15 16:37] LABS: Phosphorous 2.6 mg/dL (2.5-4.5)
[2025-05-15 16:56] LABS: Anion Gap 17.0 (8.0-16.0); Blood Urea Nitrogen 81 mg/dL (8-23); Calcium 9.4 mg/dL (8.6-10.4); Carbon Dioxide 20 mmol/L (22-30); Chloride 120 mmol/L (96-108); Glucose 799 mg/dL (70-105); Potassium 3.8 mmol/L (3.3-5.1); Sodium 157 mmol/L (133-145)
[2025-05-15 17:15] LABS: Bacteria,Urine MOD /hpf (0); Bilirubin,Urine Negative (Negative); Color,Urine YELLOW; Glucose,Urine (UA) >=500 mg/dL (Negative); Ketones,Urine Negative (Negative); Leukocyte Esterase,Urine 500 /uL (Negative); PH,Urine 5.0 (5.0-9.0); Protein,Urine Negative (Negative); Specific Gravity,Urine 1.031 (1.000-1.035); Urine Budding Yeast MANY /hpf; Urobilinogen,Urine Negative
[2025-05-15 17:27] LABS: Barbiturate Screen,Urine None detected; Benzodiazepines Screen,Urine None detected; Fentanyl, Urine Screen None Detected; Opiate Screen,Urine None detected; Oxycodone, Urine Screen None detected; Phencyclidine Screen,Urine None detected
[2025-05-15 17:40] LABS: Sodium, Urine Random 50 mmol/L
[2025-05-15] MEDS: 0.45 % SODIUM CHLORIDE 1,000 ML IV SCH ×2 (17:52→23:02)
[2025-05-15] MEDS: 0.9 % SODIUM CHLORIDE 250 ML IV SCH (18:30)
[2025-05-15] MEDS ORDERED: MAGNESIUM SULFATE 2 GM/50 ML BAG IV PRN (18:44)
[2025-05-15] MEDS ORDERED: SENNOSIDES 1 TABLET PO PRN (18:44)
[2025-05-15] MEDS ORDERED: IPRATROPIUM/ALBUTEROL 3 ML AMPUL.NEB NEB PRN (18:44)
[2025-05-15] MEDS ORDERED: ACETAMINOPHEN 325 MG TABLET PO PRN (18:44)
[2025-05-15] MEDS ORDERED: ACETAMINOPHEN 650 MG/65 ML BAG IV PRN (18:44)
[2025-05-15] MEDS ORDERED: POTASSIUM CHLORIDE 40 MEQ in DEXTROSE 5% IN WATER 500 ML IV PRN (18:44)
[2025-05-15] MEDS ORDERED: POTASSIUM CHLORIDE 20 MEQ TABLET PO PRN ×2 (18:44)
[2025-05-15 19:38] LABS: Estimated Average Glucose(eAG) 369 mg/dL; Hemoglobin A1C 14.5 % Hgb (4.0-6.0)
[2025-05-15 19:57] LABS: Phosphorous 2.9 mg/dL (2.5-4.5)
[2025-05-15 20:10] LABS: Anion Gap 16.0 (8.0-16.0); Blood Urea Nitrogen 76 mg/dL (8-23); Calcium 9.8 mg/dL (8.6-10.4); Carbon Dioxide 21 mmol/L (22-30); Chloride 125 mmol/L (96-108); Glucose 501 mg/dL (70-105); Potassium 4.4 mmol/L (3.3-5.1); Sodium 162 mmol/L (133-145)
[2025-05-15] MEDS: DEXTROSE 5% IN WATER 1,000 ML IV SCH (20:20)
[2025-05-15] MEDS: HEPARIN 5,000 UNIT/ML VIAL SQ SCH (21:36)
[2025-05-15] MEDS: FAMOTIDINE/PF 20 MG/2 ML VIAL IV SCH (21:36)
[2025-05-15] MEDS: DOCUSATE SODIUM 100 MG CAPSULE PO SCH (21:37)
[2025-05-15 22:32] LABS: Sodium 152 mmol/L (133-145)
[2025-05-15 22:43] LABS: Glucose 725 mg/dL (70-105)
[2025-05-16] MEDS: 0.45 % SODIUM CHLORIDE 1,000 ML IV SCH (01:18)
[2025-05-16 05:57] LABS: Basophils # (Auto) 0.03 K/mcL (0.00-0.30); Basophils % (Auto) 0.3 % (0.0-2.0); Eosinophils # (Auto) 0.03 K/mcL (0.00-0.70); Eosinophils % (Auto) 0.3 % (0.0-7.0); Hematocrit 39.4 % (34.1-44.9); Hemoglobin 11.7 g/dL (11.2-15.7); Lymphocytes # (Auto) 0.96 K/mcL (1.50-4.80); Lymphocytes % (Auto) 8.0 % (15.5-49.0); Mean Corpuscular HGB Conc 29.7 g/dL (31.0-36.0); Monocytes # (Auto) 0.80 K/mcL (0.10-0.90); Monocytes % (Auto) 6.7 % (1.0-12.0); Neutrophils % (Auto) 84.4 % (38.0-78.0); Platelet Count 266 K/mcL (140-440); RBC 3.75 M/mcL (3.59-5.38); WBC 12.0 K/mcL (4.5-11.0)
[2025-05-16 07:51] LABS: ALT/SGPT 9 U/L (<40); AST/SGOT 27 U/L (<32); Albumin 3.0 gm/dL (3.2-5.2); Albumin/Globulin Ratio 0.9 (1.0-2.3); Alkaline Phosphatase 147 U/L (39-117); Anion Gap 15.0 (8.0-16.0); Bilirubin,Direct < 0.2 mg/dL (0-0.3); Bilirubin,Total < 0.2 mg/dL (0.1-1.0); Blood Urea Nitrogen 64 mg/dL (8-23); Calcium 9.0 mg/dL (8.6-10.4); Carbon Dioxide 19 mmol/L (22-30); Chloride 124 mmol/L (96-108); Globulin 3.2 gm/dL (2.2-3.7); Glucose 448 mg/dL (70-105); Phosphorous 2.6 mg/dL (2.5-4.5); Potassium 4.2 mmol/L (3.3-5.1); Sodium 158 mmol/L (133-145); Triglycerides 499 mg/dL (<150); Uric Acid 11.0 mg/dL (2.5-8.0)
[2025-05-16 07:53] LABS: Beta Hydroxybutyrate 0.15 mmol/L (<0.27)
[2025-05-16] MEDS: DEXTROSE 5% IN WATER 1,000 ML IV SCH (08:17)
[2025-05-16] MEDS: cefTRIAXone 1 GM VIAL IV SCH (10:22)
[2025-05-16] MEDS: LACTOPEROXI/GLUC OXID/POT THIO 1 EACH GEL..EA. TOPICAL PRN (10:22)
[2025-05-16] MEDS: LEVOTHYROXINE 125 MCG TABLET PO SCH (10:23)
[2025-05-16 11:56] LABS: Sodium 155 mmol/L (133-145)
[2025-05-16 15:26] LABS: Sodium 154 mmol/L (133-145)
[2025-05-16 15:34] LABS: Phosphorous 2.2 mg/dL (2.5-4.5)
[2025-05-16] MEDS: DEXTROSE 5% IN WATER 1,000 ML IV ONE (16:21)
[2025-05-16] MEDS: POTASSIUM PHOSPHATE 66 MEQ/15 ML VIAL IV ONE (18:34)
[2025-05-16] MEDS: POTASSIUM PHOSPHATE 20 MEQ in DEXTROSE 5% IN WATER 250 ML IV SCH (18:35)
[2025-05-16] MEDS: INSULIN GLARGINE, HUMAN 1 UNIT/0.01 ML SQ SCH (20:02)
[2025-05-16] MEDS ORDERED: DEXTROSE 31 GM ORAL.SUSP PO PRN (20:40)
[2025-05-16] MEDS ORDERED: DEXTROSE 50% 50 ML VIAL IV PRN (20:40)
[2025-05-17] MEDS: INSULIN LISPRO 1 UNIT/0.01 ML UNIT SQ SCH ×2 (00:08→08:21)
[2025-05-17 06:19] LABS: Basophils # (Auto) 0.03 K/mcL (0.00-0.30); Basophils % (Auto) 0.2 % (0.0-2.0); Eosinophils # (Auto) 0.09 K/mcL (0.00-0.70); Eosinophils % (Auto) 0.7 % (0.0-7.0); Hematocrit 35.5 % (34.1-44.9); Hemoglobin 10.4 g/dL (11.2-15.7); Lymphocytes # (Auto) 1.03 K/mcL (1.50-4.80); Lymphocytes % (Auto) 8.4 % (15.5-49.0); Mean Corpuscular HGB Conc 29.3 g/dL (31.0-36.0); Monocytes # (Auto) 0.55 K/mcL (0.10-0.90); Monocytes % (Auto) 4.5 % (1.0-12.0); Neutrophils % (Auto) 85.6 % (38.0-78.0); Platelet Count 208 K/mcL (140-440); RBC 3.31 M/mcL (3.59-5.38); WBC 12.2 K/mcL (4.5-11.0)
[2025-05-17 06:29] LABS: ALT/SGPT 15 U/L (<40); AST/SGOT 24 U/L (<32); Albumin 2.7 gm/dL (3.2-5.2); Albumin/Globulin Ratio 0.9 (1.0-2.3); Alkaline Phosphatase 103 U/L (39-117); Anion Gap 13.0 (8.0-16.0); Bilirubin,Direct < 0.2 mg/dL (0-0.3); Bilirubin,Total 0.2 mg/dL (0.1-1.0); Blood Urea Nitrogen 34 mg/dL (8-23); Calcium 8.5 mg/dL (8.6-10.4); Carbon Dioxide 19 mmol/L (22-30); Chloride 105 mmol/L (96-108); Globulin 2.9 gm/dL (2.2-3.7); Glucose 312 mg/dL (70-105); Phosphorous 2.8 mg/dL (2.5-4.5); Potassium 3.9 mmol/L (3.3-5.1); Sodium 137 mmol/L (133-145); Triglycerides 398 mg/dL (<150); Uric Acid 7.7 mg/dL (2.5-8.0)
[2025-05-17] MEDS: INSULIN GLARGINE, HUMAN 1 UNIT/0.01 ML SQ SCH (08:21)
[2025-05-18 05:59] LABS: Basophils # (Auto) 0.02 K/mcL (0.00-0.30); Basophils % (Auto) 0.2 % (0.0-2.0); Eosinophils # (Auto) 0.12 K/mcL (0.00-0.70); Eosinophils % (Auto) 1.3 % (0.0-7.0); Hematocrit 31.8 % (34.1-44.9); Hemoglobin 9.7 g/dL (11.2-15.7); Lymphocytes # (Auto) 0.82 K/mcL (1.50-4.80); Lymphocytes % (Auto) 8.9 % (15.5-49.0); Mean Corpuscular HGB Conc 30.5 g/dL (31.0-36.0); Monocytes # (Auto) 0.46 K/mcL (0.10-0.90); Monocytes % (Auto) 5.0 % (1.0-12.0); Neutrophils % (Auto) 83.8 % (38.0-78.0); Platelet Count 212 K/mcL (140-440); RBC 3.08 M/mcL (3.59-5.38); WBC 9.2 K/mcL (4.5-11.0)
[2025-05-18 06:15] LABS: Anion Gap 13.0 (8.0-16.0); Blood Urea Nitrogen 33 mg/dL (8-23); Calcium 9.0 mg/dL (8.6-10.4); Carbon Dioxide 19 mmol/L (22-30); Chloride 110 mmol/L (96-108); Glucose 283 mg/dL (70-105); Potassium 4.1 mmol/L (3.3-5.1); Sodium 142 mmol/L (133-145)
[2025-05-18] MEDS: INSULIN LISPRO 1 UNIT/0.01 ML UNIT SQ SCH ×5 (08:06→11:46)
[2025-05-18] MEDS: diphenhydrAMINE 50 MG/ML VIAL IV ONE (08:06)
[2025-05-18] MEDS: HYDROCORTISONE SOD SUCC 100 MG VIAL IV ONE (08:06)
[2025-05-18 08:40] LABS: ALT/SGPT 17 U/L (<40); AST/SGOT 20 U/L (<32); Albumin 2.7 gm/dL (3.2-5.2); Alkaline Phosphatase 105 U/L (39-117); Bilirubin,Direct < 0.2 mg/dL (0-0.3); Bilirubin,Total < 0.2 mg/dL (0.1-1.0); Globulin 3.3 gm/dL (2.2-3.7)
[2025-05-18] MEDS ORDERED: IOPAMIDOL 100 ML BOTTLE IV ONE (09:18)
[2025-05-18] MEDS: INSULIN GLARGINE, HUMAN 1 UNIT/0.01 ML SQ SCH (10:38)
[2025-05-18] MEDS: 0.9 % SODIUM CHLORIDE 1,000 ML IV SCH (10:39)
[2025-05-18] MEDS ORDERED: DEXTROSE 31 GM ORAL.SUSP PO PRN (11:43)
[2025-05-18] MEDS ORDERED: DEXTROSE 50% 50 ML VIAL IV PRN (11:43)
[2025-05-18] MEDS: ACETAMINOPHEN 1,000 MG/100 ML BAG IV SCH (11:44)
[2025-05-18] MEDS ORDERED: HYDROmorphone 0.5 MG/0.5 ML SYRINGE IV PRN (23:48)
[2025-05-19] MEDS: POLYETHYLENE GLYCOL 3350 17 GM PACKET PO PRN (00:53)
[2025-05-19 06:08] LABS: Basophils # (Auto) 0.01 K/mcL (0.00-0.30); Basophils % (Auto) 0.1 % (0.0-2.0); Eosinophils # (Auto) 0.15 K/mcL (0.00-0.70); Eosinophils % (Auto) 1.6 % (0.0-7.0); Hematocrit 30.0 % (34.1-44.9); Hemoglobin 9.1 g/dL (11.2-15.7); Lymphocytes # (Auto) 0.77 K/mcL (1.50-4.80); Lymphocytes % (Auto) 8.3 % (15.5-49.0); Mean Corpuscular HGB Conc 30.3 g/dL (31.0-36.0); Monocytes # (Auto) 0.52 K/mcL (0.10-0.90); Monocytes % (Auto) 5.6 % (1.0-12.0); Neutrophils % (Auto) 83.6 % (38.0-78.0); Platelet Count 201 K/mcL (140-440); RBC 2.90 M/mcL (3.59-5.38); WBC 9.3 K/mcL (4.5-11.0)
[2025-05-19 06:32] LABS: ALT/SGPT 19 U/L (<40); AST/SGOT 18 U/L (<32); Albumin 2.5 gm/dL (3.2-5.2); Albumin/Globulin Ratio 1.0 (1.0-2.3); Alkaline Phosphatase 77 U/L (39-117); Anion Gap 11.0 (8.0-16.0); Bilirubin,Direct < 0.2 mg/dL (0-0.3); Bilirubin,Total < 0.2 mg/dL (0.1-1.0); Blood Urea Nitrogen 32 mg/dL (8-23); Calcium 8.3 mg/dL (8.6-10.4); Carbon Dioxide 19 mmol/L (22-30); Chloride 114 mmol/L (96-108); Globulin 2.5 gm/dL (2.2-3.7); Glucose 175 mg/dL (70-105); Phosphorous 3.5 mg/dL (2.5-4.5); Potassium 3.6 mmol/L (3.3-5.1); Sodium 144 mmol/L (133-145); Triglycerides 211 mg/dL (<150); Uric Acid 7.2 mg/dL (2.5-8.0)
[2025-05-19] MEDS: ONDANSETRON 4 MG/2 ML VIAL IV PRN (08:25)
[2025-05-19] MEDS ORDERED: INSULIN LISPRO 1 UNIT/0.01 ML UNIT SQ SCH (12:00)
[2025-05-19] MEDS: INSULIN LISPRO 1 UNIT/0.01 ML UNIT SQ SCH (12:23)
[2025-05-20] MEDS: METOCLOPRAMIDE 10 MG/2 ML VIAL IV PRN (07:12)
[2025-05-20] MEDS: 0.45 % SODIUM CHLORIDE 1,000 ML IV SCH (08:40)
[2025-05-20 19:34] VITALS: O2SAT 96
[2025-05-21 08:48] LABS: Basophils # (Auto) 0.03 K/mcL (0.00-0.30); Basophils % (Auto) 0.4 % (0.0-2.0); Eosinophils # (Auto) 0.22 K/mcL (0.00-0.70); Eosinophils % (Auto) 3.1 % (0.0-7.0); Hematocrit 32.0 % (34.1-44.9); Hemoglobin 10.1 g/dL (11.2-15.7); Lymphocytes # (Auto) 0.66 K/mcL (1.50-4.80); Lymphocytes % (Auto) 9.2 % (15.5-49.0); Mean Corpuscular HGB Conc 31.6 g/dL (31.0-36.0); Monocytes # (Auto) 0.40 K/mcL (0.10-0.90); Monocytes % (Auto) 5.6 % (1.0-12.0); Neutrophils % (Auto) 79.0 % (38.0-78.0); Platelet Count 270 K/mcL (140-440); RBC 3.22 M/mcL (3.59-5.38); WBC 7.2 K/mcL (4.5-11.0)
[2025-05-21 09:41] LABS: ALT/SGPT 25 U/L (<40); AST/SGOT 24 U/L (<32); Albumin 2.7 gm/dL (3.2-5.2); Albumin/Globulin Ratio 1.0 (1.0-2.3); Alkaline Phosphatase 107 U/L (39-117); Anion Gap 10.0 (8.0-16.0); Bilirubin,Direct < 0.2 mg/dL (0-0.3); Bilirubin,Total < 0.2 mg/dL (0.1-1.0); Blood Urea Nitrogen 25 mg/dL (8-23); Calcium 8.4 mg/dL (8.6-10.4); Carbon Dioxide 20 mmol/L (22-30); Chloride 108 mmol/L (96-108); Globulin 2.8 gm/dL (2.2-3.7); Glucose 267 mg/dL (70-105); Phosphorous 2.4 mg/dL (2.5-4.5); Potassium 4.6 mmol/L (3.3-5.1); Sodium 138 mmol/L (133-145); Triglycerides 251 mg/dL (<150); Uric Acid 6.0 mg/dL (2.5-8.0)
[2025-05-21 11:18] VITALS: TEMP 97.9
[2025-05-25 13:51] LABS: Sodium 152 mmol/L (133-145)
== END 2025-05-21 15:58 | disposition home health service (06) | DRG 637 ==
LOC: ED 12:14 → ICU 18:31 → MEDSUR 05-19 12:56
PROVIDERS: ADMIT Internal Medicine; ATTEND Internal Medicine